=== PATIENT | female | born 1965 | race Two or more races ===

== ENCOUNTER 2020-04-08 13:35 | Outpatient (REF) | payer MEDICARE, MEDICAID, SELFPAY ==
[2020-04-08 14:48] LABS: MANUAL DIFF FLAG NO
[2020-04-08 14:59] LABS: Basophils Percent Auto 0.3 % (0-2); Eosinophils Absolute Auto 0.1 X10*3/uL (0.0-0.4); Hemoglobin 13.1 g/dl (12.0-16.0); Imm Gran Abs Auto 0.02 X10*3/uL (0.00-0.03); Imm Gran Pct Auto 0.3 % (0.0-0.4); Mean Corpuscular HGB Conc 34.5 g/dl (31.0-35.0); Mean Corpuscular Hemoglobin 30.8 pg (27.0-33.0); Mean Corpuscular Volume 89.4 fL (80-98); Mean Platelet Volume 11.8 fL (9.4-12.3); Monocytes Absolute Auto 0.6 X10*3/uL (0.1-1.2); Monocytes Percent Auto 9.9 % (2-11); Neutrophils Absolute Auto 3.1 X10*3/uL (2.0-8.3); Neutrophils Percent Auto 54.5 % (45-73); Platelet Count 258 X10*3/uL (160-400); Red Blood Count 4.25 X10*6/uL (4.20-5.50); Red Cell Distribution Width 14.4 % (11.0-16.0); White Blood Count 5.8 X10*3/uL (4.8-10.8)
[2020-04-08 15:16] LABS: Alanine Aminotransferase 24 U/L (0-31); Albumin Level 3.4 g/dL (3.5-5.0); Alkaline Phosphatase 54 U/L (39-117); Anion Gap 11 (12-20); Aspartate Amino Transferase 26 U/L (5-31); Bilirubin Total 0.4 mg/dL (0.0-1.0); Blood Urea Nitrogen 20 mg/dL (9-16); Carbon Dioxide 29 mmol/L (22-29); Chloride 104 mmol/L (96-108); Cholesterol 275 mg/dL; Estimated Glomerular Filt Rate > 60; Glucose Random 88 mg/dL (60-115); HDL Cholesterol 45 mg/dL; LDL Cholesterol Calculated 189 mg/dl; Potassium 4.4 mmol/l (3.3-5.1); Sodium 140 mmol/L (135-145); Total Protein 7.6 g/dL (6.5-8.0); Triglycerides 205 mg/dL
[2020-04-09 04:31] LABS: SARS COV2 IgG Negative (Negative)
[2020-04-13 15:22] LABS: IgA 878 mg/dL (47-310); IgG 1975 mg/dL (600-1640); IgM 107 mg/dL (50-300)
== END 2020-04-08 13:36 | disposition home or self-care (01) ==
LOC: HO.LAB 13:35
PROVIDERS: Internal Medicine Medical Oncology; PCP Internal Medicine; Visit Provider Internal Medicine
DX: I12.9 Hypertensive chronic kidney disease with stage 1 through stage 4 chronic kidney disease, or unspecified chronic kidney disease (principal); N18.9 Chronic kidney disease, unspecified; D63.1 Anemia in chronic kidney disease; E78.2 Mixed hyperlipidemia; N04.9 Nephrotic syndrome with unspecified morphologic changes
CPT/HCPCS: 36415; 80053; 80061; 82784; 85025; 86334; 86769

== ENCOUNTER → 2020-07-31 13:23 | Outpatient (BNVA) | payer MEDICARE, MEDICAID, SELFPAY | PROVIDERS: PCP Internal Medicine; Visit Provider Nurse Practitioner Family | DX: Z76.89 Persons encountering health services in other specified circumstances (principal) | CPT/HCPCS: Q3014 ==

== ENCOUNTER 2020-08-01 08:51 | Outpatient (REF) | payer MEDICARE, MEDICAID, SELFPAY ==
[2020-08-01 09:25] LABS: MANUAL DIFF FLAG NO
[2020-08-01 09:34] LABS: Basophils Percent Auto 0.4 % (0-2); Eosinophils Absolute Auto 0.1 X10*3/uL (0.0-0.4); Eosinophils Percent Auto 1.5 % (0-4); Hematocrit 36.6 % (37-47); Hemoglobin 12.9 g/dl (12.0-16.0); Imm Gran Abs Auto 0.02 X10*3/uL (0.00-0.03); Imm Gran Pct Auto 0.3 % (0.0-0.4); Lymphocytes Absolute Auto 2.2 X10*3/uL (1.2-4.9); Lymphocytes Percent Auto 31.1 % (20-40); Mean Corpuscular HGB Conc 35.2 g/dl (31.0-35.0); Mean Corpuscular Hemoglobin 30.9 pg (27.0-33.0); Mean Corpuscular Volume 87.6 fL (80-98); Mean Platelet Volume 11.3 fL (9.4-12.3); Monocytes Absolute Auto 0.6 X10*3/uL (0.1-1.2); Monocytes Percent Auto 8.6 % (2-11); Neutrophils Absolute Auto 4.2 X10*3/uL (2.0-8.3); Neutrophils Percent Auto 58.1 % (45-73); Platelet Count 220 X10*3/uL (160-400); Red Blood Count 4.18 X10*6/uL (4.20-5.50); Red Cell Distribution Width 14.2 % (11.0-16.0); White Blood Count 7.2 X10*3/uL (4.8-10.8)
[2020-08-01 09:55] LABS: Alanine Aminotransferase 14 U/L (0-31); Albumin Level 3.4 g/dL (3.5-5.0); Alkaline Phosphatase 54 U/L (39-117); Anion Gap 11 (12-20); Aspartate Amino Transferase 18 U/L (5-31); Bilirubin Total 0.7 mg/dL (0.0-1.0); Blood Urea Nitrogen 22 mg/dL (9-16); Calcium 8.5 mg/dL (8.4-10.2); Carbon Dioxide 28 mmol/L (22-29); Chloride 106 mmol/L (96-108); Estimated Glomerular Filt Rate > 60; Glucose Random 97 mg/dL (60-115); Potassium 4.5 mmol/L (3.3-5.1); Sodium 140 mmol/L (135-145); Total Protein 7.4 g/dL (6.5-8.0)
[2020-08-03 13:37] LABS: IgA 810 mg/dL (47-310); IgG 1874 mg/dL (600-1640); IgM 99 mg/dL (50-300)
== END 2020-08-01 08:52 | disposition home or self-care (01) ==
LOC: HO.LAB 08:51
PROVIDERS: Internal Medicine Medical Oncology; Visit Provider Nurse Practitioner Family
DX: E85.9 Amyloidosis, unspecified (principal)
CPT/HCPCS: 36415; 80053; 82784; 85025; 86334

== ENCOUNTER → 2020-08-20 12:31 | Outpatient (BNVA) | payer MEDICARE, MEDICAID, SELFPAY | PROVIDERS: PCP Internal Medicine; Visit Provider Internal Medicine | DX: Z01.810 Encounter for preprocedural cardiovascular examination (principal); R07.2 Precordial pain; R06.02 Shortness of breath; I10 Essential (primary) hypertension; E78.5 Hyperlipidemia, unspecified; E85.4 Organ-limited amyloidosis | CPT/HCPCS: 93005; 99202 ==

== ENCOUNTER → 2020-08-27 09:17 | Outpatient (REF) | payer MEDICARE, MEDICAID, SELFPAY ==
--- NOTE | ~2020-08-27 | NM_ITS ---
Exercise Myocardial perfusion study Indication: Preoperative cardiovascular risk stratification Technique: The patient was brought in for an exercise perfusion study on 08/27/2020. Patient performed exercise as per Gold protocol and was injected 25 mCi of sestamibi was given intravenously one target HR was achieved. Images were obtained using the SPECT gamma camera interlaced with the gating device. Images were obtained in supine position. Resting perfusion study was performed on 08/28/2020. Patient was administered 25 mCi of sestamibi intravenously at rest. Images were then obtained in supine position. Images obtained with and without CT attenuation. Total DLP 68 mGy-cm. Images were processed with the software and compared side to side in short axis, horizontal long axis and vertical long axis views. Findings: The stress perfusion study showed isoattenuated images show normal uptake of radiotracer in all segments of LV myocardium. Attenuation corrected images show minimally reduced uptake in the apex of the LV myocardium. The gated study shows normal LV systolic function with calculated LVEF of greater than 70 %. LV cavity is normal in size. The gated study shows normal systolic wall thickening and contraction of all segments. There is no transient ischemic dilation. Resting study shows no change in perfusion pattern compared to stress perfusion study. Gating at rest reveals normal systolic wall motion with ejection fraction at greater than 70 %. The findings are consistent with normal myocardial perfusion. NM/NM cardiolite stress test Impression: 1. Normal myocardial perfusion 2. Gated LVEF is greater than 70% 3. Transient ischemic dilatation not present Stress EKG is negative for ischemia
--- NOTE | 2020-08-27 09:15 | CA_ITS ---
Acquisition Time: 2020-08-27 09:34:43 Total Exercise Time: 00:09:30 Test Indications: CP, SOB, PREOP Medications: SEE CHART Protocol: MELO Max HR: 142 BPM 85% of Pred: 166 BPM Max BP: 158/080 mmHG Max Work Load: 10.1 METS Exercise stress test with exercise 9 min 30 sec of Melo protocol, without anginal symptoms, without arrythmia, with normotensive response to exercise, without EKG changes meeting criteria for ischemia. Nuclear images pending. Test reveiwed with Dr Miranda. Referred By: Alberto Miranda Overread By: TAYLOR PEOPLES
== END ==
LOC: HO.CARD 09:17
PROVIDERS: Visit Provider Internal Medicine
DX: Z01.810 Encounter for preprocedural cardiovascular examination (principal)
CPT/HCPCS: 78452; 93016; 93017; 93018; A9500

== ENCOUNTER → 2020-09-10 11:04 | Outpatient (REF) | payer MEDICARE, MEDICAID, SELFPAY ==
--- NOTE | 2020-09-10 11:09 | CA_ITS ---
Transthoracic Echocardiogram Patient (Last, First, Middle): Yelena Mckinney M Gender: Female Date of : 1965 Age: 55 Procedure Date: 09/10/2020 Procedure Type: Transthoracic Echocardiogram Location: OP Height: 157.48 cm Weight: 69.85 kg BSA: 1.71 m2 Heart Rate: bpm BP: 130 / 83 mmHg Chief Contract Officer: MARIANA Referring MD: Alberto Miranda MD Symptoms: Z01.810 - Encounter for preprocedural cardiovascular examination Study Quality: Fair ECG Rhythm: Sinus Conclusions: - The left ventricular systolic function is normal. The visually estimated ejection fraction is between 60-65%. - There is mild mitral annular calcification. - No obvious valvular pathology seen on this study. Findings Left Ventricle Normal left ventricular cavity size. There is mildly increased left ventricular wall thickness. The left ventricular systolic function is normal. The visually estimated ejection fraction is between 60-65%. There is no evidence of regional wall motion abnormalities. Diastolic function is normal for age. Right Ventricle Normal right ventricular cavity size and systolic function. Atria The left atrium is normal in size. The right atrium is normal in size. Aortic Valve There is a normal trileaflet aortic valve. There is no aortic valve stenosis. There is no aortic valve regurgitation. Mitral Valve There is mild mitral annular calcification. There is trace mitral valve regurgitation. There is no mitral valve stenosis. Pulmonic Valve The pulmonic valve was not well visualized. Tricuspid Valve Normal tricuspid valve structure. There is trace tricuspid valve regurgitation. The pulmonary artery systolic pressure is normal. Great Vessels The asc aorta and aortic arch are normal in size. Venous The inferior vena cava is normal in size and collapses greater than 50% with inspiration. Pericardium/Pleural There is no evidence of pericardial effusion. Prior Study Comparison No significant change compared to prior study dated: 12/23/2011. Recommendations, Care & Conclusions No obvious valvular pathology seen on this study. Measurements M-Mode Liner Measurements Normals - Women/Men AOV Cusps: 2.10 1.5-2.6 cm/m2 2D Linear Measurements IVSd: 1.20 0.6-0.9/0.6-1.0 cm LVIDd: 4.46 3.9-5.3/4.2-5.9 cm LVIDd Index: 2.61 2.4-3.2/2.2-3.1 cm/m2 LVIDs: 2.44 2.0-3.6 cm LVPWd: 1.23 0.7-1.1 cm Ao Root: 2.90 2.1-3.5 cm LA Diam: 3.30 2.7-3.8/3.0-4.0 cm LAIDs Index: 1.93 1.5-2.3 cm/m2 LV Mass: 247.90 67-162/88-224 g LV Mass Index: 144.97 43-95/49-115 g/m2 LVOT Diam: 1.90 3.0+(-)1.3 cm 2D Systolic Function EF 4C: 61.40 >55% EF 2C: 63.30 >55% EF BiP: 62.30 >55% Mitral Valve MV Pk E: 0.92 MV PK A: 0.98 MV Decel Time: 194.00 E/A: 0.90 E'Lateral: 8.27 E'Medial: 8.05 E/E' Med: 11.50 E/E' Lat: 11.10 PHT: 57.00 MVA PHT: 3.86 Decel Bertie: 4.76 Aortic Valve AoV Pk Ernst: 1.93 AoV Pk Grad: 15.00 LVOT LVOT Pk Ernst: 1.41 LVOT Mn Ernst: 0.90 LVOT VTI: 0.26 LVOT Pk Grad: 8.00 LVOT Mn Grad: 4.00 LVOT Diam: 1.90 LVOT Area: 2.84 Diastolic Function MV Pk E: 0.92 MV Pk A: 0.98 E/A: 0.90 E'Medial: 8.05 E/E' Med: 11.50 E' Laterial: 8.27 E/E' Lat: 11.10 Tricuspid Valve TR Pk Ernst: 2.57 TR Pk Grad: 26.00 RA Press: 3.00 RVSP: 29.00 Great Vessels Aorta Ao Root-2D: 2.90 2.0-3.7 cm Ao Asc: 2.90 2.1-3.4 cm Ao Arch: 3.10 Pulmonary Valve PV Pk Ernst: 1.30 Peak PV Grad: 7.00 Updated in Other Vendor System with Status of Final Alberto Miranda MD electronically signed on 09/12/2020 12:46:08 PM with status of Final
== END ==
LOC: HO.CARD 11:04
PROVIDERS: PCP Internal Medicine; Visit Provider Internal Medicine
DX: Z01.810 Encounter for preprocedural cardiovascular examination (principal)
CPT/HCPCS: 93306

== ENCOUNTER 2020-09-11 09:04 | Outpatient (REF) | payer MEDICARE, MEDICAID, SELFPAY ==
[2020-09-11 10:54] LABS: MANUAL DIFF FLAG NO
[2020-09-11 11:00] LABS: Basophils Percent Auto 0.3 % (0-2); Eosinophils Absolute Auto 0.1 X10*3/uL (0.0-0.4); Eosinophils Percent Auto 1.1 % (0-4); Hematocrit 37.8 % (37-47); Hemoglobin 13.4 g/dl (12.0-16.0); Imm Gran Abs Auto 0.01 X10*3/uL (0.00-0.03); Imm Gran Pct Auto 0.2 % (0.0-0.4); Lymphocytes Absolute Auto 1.7 X10*3/uL (1.2-4.9); Lymphocytes Percent Auto 27.8 % (20-40); Mean Corpuscular HGB Conc 35.4 g/dl (31.0-35.0); Mean Corpuscular Hemoglobin 31.7 pg (27.0-33.0); Mean Corpuscular Volume 89.4 fL (80-98); Mean Platelet Volume 11.5 fL (9.4-12.3); Monocytes Absolute Auto 0.5 X10*3/uL (0.1-1.2); Monocytes Percent Auto 7.5 % (2-11); Neutrophils Percent Auto 63.1 % (45-73); Platelet Count 230 X10*3/uL (160-400); Red Blood Count 4.23 X10*6/uL (4.20-5.50); Red Cell Distribution Width 13.8 % (11.0-16.0); White Blood Count 6.3 X10*3/uL (4.8-10.8)
[2020-09-11 11:28] LABS: Alanine Aminotransferase 14 U/L (0-31); Albumin Level 3.4 g/dL (3.5-5.0); Alkaline Phosphatase 54 U/L (39-117); Anion Gap 14 (12-20); Aspartate Amino Transferase 16 U/L (5-31); Bilirubin Total 0.4 mg/dL (0.0-1.0); Blood Urea Nitrogen 23 mg/dL (9-16); C Reactive Protein 0.32 mg/dL (< or = 0.50); Calcium 8.5 mg/dL (8.4-10.2); Carbon Dioxide 25 mmol/L (22-29); Chloride 107 mmol/L (96-108); Estimated Glomerular Filt Rate > 60; Glucose Random 96 mg/dL (60-115); Potassium 4.6 mmol/L (3.3-5.1); Sodium 141 mmol/L (135-145); Total Protein 7.6 g/dL (6.5-8.0)
[2020-09-11 11:45] LABS: Erythrocyte Sedimentation Rate 49 MM/HR (0-20)
[2020-09-11 11:46] LABS: Glucose Urine UA NEG (NEG); Leukocyte Esterase Urine NEG (NEG); Nitrite Urine NEG (NEG); PH 5.5 (5.0-8.0); Specific Gravity - Urine >= 1.030 (1.005-1.025); Urine Blood TRACE (NEG); Urine Ketones NEG (NEG); Urine Protein 3+ MG/DL (NEG-TRACE)
[2020-09-11 11:49] LABS: Appearance Urine CLEAR; Color Urine YELLOW
[2020-09-11 12:05] LABS: Creatinine Urine 131.91 mg/dL
[2020-09-11 12:18] LABS: Total Protein Urine Random 541 mg/dL (<12)
[2020-09-11 12:23] LABS: Mucus Urine TRACE /LPF; RBC Urine 0-2 /HPF (0); Renal Epithelial Cells Urine TRACE /LPF; Squamous Epithelial Cell Urine 1+ /LPF
[2020-09-12 13:16] LABS: Anti DNA DS Antibody 2 IU/mL
[2020-09-15 13:37] LABS: Complement C3 97 mg/dL (83-193)
[2020-09-15 14:01] LABS: Vitamin D 25-OH, D2 <4 ng/mL; Vitamin D 25-OH, D3 15 ng/mL; Vitamin D 25-OH, Total 15 ng/mL (30-100)
== END 2020-09-11 09:05 | disposition home or self-care (01) ==
LOC: HO.LAB 09:04
PROVIDERS: PCP Internal Medicine; Visit Provider Student in an Organized Health Care Education/Training Program
DX: M32.14 Glomerular disease in systemic lupus erythematosus (principal); Z79.52 Long term (current) use of systemic steroids; Z79.899 Other long term (current) drug therapy
CPT/HCPCS: 36415; 80053; 81001; 82306; 84156; 85025; 85652; 86140; 86160; 86225; 99212

== ENCOUNTER 2020-09-18 11:43 | Outpatient (REF) | payer MEDICARE, MEDICAID, SELFPAY ==
[2020-09-18 13:02] LABS: Hematocrit 35.9 % (37-47); Hemoglobin 12.6 g/dl (12.0-16.0); Mean Corpuscular HGB Conc 35.1 g/dl (31.0-35.0); Mean Corpuscular Hemoglobin 31.5 pg (27.0-33.0); Mean Corpuscular Volume 89.8 fL (80-98); Mean Platelet Volume 11.9 fL (9.4-12.3); Platelet Count 227 X10*3/uL (160-400); Red Cell Distribution Width 13.7 % (11.0-16.0); White Blood Count 5.7 X10*3/uL (4.8-10.8)
[2020-09-18 13:05] LABS: Glucose Urine UA NEG (NEG); Leukocyte Esterase Urine NEG (NEG); Nitrite Urine NEG (NEG); Specific Gravity - Urine >= 1.030 (1.005-1.025); Urine Blood TRACE (NEG); Urine Ketones NEG (NEG); Urine Protein 3+ MG/DL (NEG-TRACE)
[2020-09-18 13:10] LABS: Appearance Urine CLEAR; Color Urine YELLOW
[2020-09-18 13:46] LABS: Mucus Urine 1+ /LPF; RBC Urine 0-2 /HPF (0); Squamous Epithelial Cell Urine 1+ /LPF; WBC Urine 0-2 /HPF (0-4)
== END 2020-09-18 11:44 | disposition home or self-care (01) ==
LOC: HO.LAB 11:43
PROVIDERS: Absent Provider Nurse Practitioner Family; PCP Internal Medicine; Visit Provider Student in an Organized Health Care Education/Training Program
DX: Z12.11 Encounter for screening for malignant neoplasm of colon (principal); M32.14 Glomerular disease in systemic lupus erythematosus
CPT/HCPCS: 36415; 81001; 85027

== ENCOUNTER 2020-09-24 10:15 | Day surgery (SDC) | payer MEDICARE, MEDICAID, SELFPAY ==
[2020-09-16 11:41] VITALS: BMI 28.2
--- NOTE | 2020-09-21 09:23 | HO.ANESPROP2 ---
Documented by User: Virginia Welchney 09/21/20 09:26 HPI - Anesthesia Eval Consult details Narrative: 55yo F for Colonoscopy Cardiac cleared at low risk Chronic steroids (SLE) PMFSH Active Problems Active Problems: All Active Problems (Updated 09/16/20 @ 11:28 by Charlene Pascual) Amyloidosis (Acute) Preoperative cardiovascular examination (Acute) Precordial chest pain (Acute) Shortness of breath (Acute) half-way systemic steroid user (Acute) Lupus (systemic lupus erythematosus) (Acute) Other and unspecified hyperlipidemia (Acute) Essential hypertension (Acute) IBS (irritable bowel syndrome) (Acute) Past Medical History Medical History Essential hypertension HTN (hypertension) IBS (irritable bowel syndrome) 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 Lupus (systemic lupus erythematosus) Osteoarthritis Other and unspecified hyperlipidemia Family History Family History Mother Diabetes Arthritis Father Diabetes Surgical History Surgical History History of breast lump/mass excision Hx of cholecystectomy Hx of lymph node biopsy Social History Social History Household Members: None Alcohol intake: current Alcohol intake frequency: does not drink Smoking Status: Never smoker Use of substances other than those prescribed or required for medical reasons: No Advance Directives Information Provided: No Meds Allergies Allergy/AdvReac Type Severity Reaction Status Date / Time aspirin [ASA] Allergy Intermediate RASH AND Verified 09/24/20 10:42 ITCHING ibuprofen Allergy Intermediate rash Verified 09/24/20 10:42 itching penicillin V Allergy Intermediate rash Verified 09/24/20 10:42 Home Medications Medication Instructions Recorded Confirmed Last Taken Type albuterol sulfate [ProAir HFA] 2 puff INHALATION Q4-6H PRN 04/10/20 09/16/20 Unknown History allopurinol 100 mg PO DAILY 04/10/20 09/16/20 Unknown History budesonide-formoterol [Symbicort] 2 puff INHALATION BID 04/10/20 09/16/20 Unknown History diltiazem HCl 240 mg PO DAILY 04/10/20 09/16/20 Unknown History duloxetine 60 mg PO DAILY 04/10/20 09/16/20 Unknown History furosemide [Lasix] 20 mg PO DAILY 04/10/20 09/16/20 Unknown History hydralazine 100 mg PO BID 04/10/20 09/16/20 Unknown History hydroxychloroquine [Plaquenil] 200 mg PO DAILY 04/10/20 09/16/20 Unknown History olopatadine 0.2 drp OPHTHALMIC (EYE) BID 04/10/20 09/16/20 Unknown History prednisone 20 mg PO DAILY 04/10/20 09/16/20 Unknown History quetiapine [Seroquel] 25 mg PO DAILY 04/10/20 09/16/20 Unknown History tiotropium bromide [Spiriva with 1 cap INHALATION DAILY 04/10/20 09/16/20 Unknown History HandiHaler] valsartan 320 mg PO DAILY 04/10/20 09/16/20 Unknown History mirtazapine 15 mg tablet 5 mg PO BEDTIME 08/20/20 09/16/20 Unknown History rosuvastatin 40 mg tablet 40 mg PO DAILY tab 08/20/20 09/16/20 Unknown History Exam Exam Date and Time: September 21, 2020 0923 Height,Weight and Vital Signs: Height 5 ft 2 in Weight 70 kg Narrative Narrative: Echo 08/2020 Conclusions: - The left ventricular systolic function is normal. The visually estimated ejection fraction is between 60-65%. - There is mild mitral annular calcification. - No obvious valvular pathology seen on this study. EKG 08/2020 NSR, ? LAE, LAD NM cardiolite stress test 08/2020 Impression: 1. Normal myocardial perfusion 2. Gated LVEF is greater than 70% 3. 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 Lupus (systemic lupus erythematosus) Osteoarthritis Other and unspecified hyperlipidemia Family History Family History Mother Diabetes Arthritis Father Diabetes Surgical History Surgical History History of breast lump/mass excision Hx of cholecystectomy Hx of lymph node biopsy Social History Social History Household Members: None Alcohol intake: current Alcohol intake frequency: does not drink Smoking Status: Never smoker Use of substances other than those prescribed or required for medical reasons: No Advance Directives Information Provided: No Meds Allergies Allergy/AdvReac Type Severity Reaction Status Date / Time aspirin [ASA] Allergy Intermediate RASH AND Verified 09/24/20 10:42 ITCHING ibuprofen Allergy Intermediate rash Verified 09/24/20 10:42 itching penicillin V Allergy Intermediate rash Verified 09/24/20 10:42 Home Medications Medication Instructions Recorded Confirmed Last Taken Type albuterol sulfate [ProAir HFA] 2 puff INHALATION Q4-6H PRN 04/10/20 09/16/20 Unknown History allopurinol 100 mg PO DAILY 04/10/20 09/16/20 Unknown History budesonide-formoterol [Symbicort] 2 puff INHALATION BID 04/10/20 09/16/20 Unknown History diltiazem HCl 240 mg PO DAILY 04/10/20 09/16/20 Unknown History duloxetine 60 mg PO DAILY 04/10/20 09/16/20 Unknown History furosemide [Lasix] 20 mg PO DAILY 04/10/20 09/16/20 Unknown History hydralazine 100 mg PO BID 04/10/20 09/16/20 Unknown History hydroxychloroquine [Plaquenil] 200 mg PO DAILY 04/10/20 09/16/20 Unknown History olopatadine 0.2 drp OPHTHALMIC (EYE) BID 04/10/20 09/16/20 Unknown History prednisone 20 mg PO DAILY 04/10/20 09/16/20 Unknown History quetiapine [Seroquel] 25 mg PO DAILY 04/10/20 09/16/20 Unknown History tiotropium bromide [Spiriva with 1 cap INHALATION DAILY 04/10/20 09/16/20 Unknown History HandiHaler] valsartan 320 mg PO DAILY 04/10/20 09/16/20 Unknown History mirtazapine 15 mg tablet 5 mg PO BEDTIME 08/20/20 09/16/20 Unknown History rosuvastatin 40 mg tablet 40 mg PO DAILY tab 08/20/20 09/16/20 Unknown History Exam Airway Mallampati Class: II TM Dist: >3cm Neck ROM: Full Denture: Upper and Lower Heart: [id number] Lungs: cta b/l Assessment and Plan Assessment Anesthesia Assessment: Anesthesia Plan Discussed and Chart Reviewed Final Anesthetic Review NPO: Yes ASA Class: III Final Preanesthetic Review: No Changes in Pt Med Stat, Meds/Allgs Chart Reviewed, Consent Obtained/Reviewed and Anes Risks/Benef Reviewed Patient Risk: Intermediate Procedure Risk: Low Assessment/Block/Sedation in SS: Assess/Block/Sedation-SS Anesthetic Plan Anesthetic Plan: GA and Agree w/ Assess. and Plan Disposition: Standard PACU
--- NOTE | 2020-09-22 08:27 | PC.NURSE ---
Patient brought into prep area and ADI De Los Santos began asking what the results of the preparation solution were. Patient explained the last bowel movement was yesterday and when asked if it was formed stated yes . Patient asked if she wanted an printed products assembler for better understanding and patient refused. ADI Estrada attempted to explain use of preparation and intended results of multiple bathroom uses after taking it with result of all liquid, no formed stools. Patient stated I tried to drink the stuff and it made me sick and I threw up, so I didnt drink it. Dr Dillon informed of no preparation taken and formed stool. Per Dr. Dillon, patient to be rescheduled and educated on proper prep. This RN told patient of need for reschedule and attempted to explain need to call office multiple times if necessary in order to get someone to explain how to take prep. Patient stated I dont need your attitude, I am not a baby. Again offered printed products assembler and refused. Patient given office number with need to reschedule and get preparations instructions written on paper. Patient grabbed paper from RN forcefully, stated I don't need this and left prep room abruptly. OR desk & PACU informed of cancellation.
[2020-09-24 10:45] VITALS: BP 139/99; PULSE 104; RESP 18; TEMP 36.1; O2SAT 99
--- NOTE | 2020-09-24 10:48 | P.HPSUR_ITS ---
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,IBS; ?anxiety disorder???) Allergies: Allergies Allergy/AdvReac Type Severity Reaction Status Date / Time aspirin [ASA] Allergy Intermediate RASH AND Verified 09/24/20 10:42 ITCHING ibuprofen Allergy Intermediate rash Verified 09/24/20 10:42 itching penicillin V Allergy Intermediate rash Verified 09/24/20 10:42 Review of Systems Sugical H&P ROS: Negative: Constitution and Neurological and Yes, Specify: Cardiovascular (Hx HTN, Recent cardiac evaluation was normal), Respiratory (asthma-stable), Psychiatric (on meds), Hem-Onc (followed for atypical breast bx changes), Gastrointestinal (IBS) and Musculoskeletal (Rheumatology--Lupus) Exam Surgical H&P Exam: Normal: HEENT, Normal: Heart, Normal: Lungs, Normal: Extremities, Normal: Abdomen and Normal: Skin Plan Diagnosis/Plan: Unchanged I have reviewed the history and physical and performed a pertinent physical examination on my patient. No changes have occurred unless specified.yes
--- NOTE | 2020-09-24 10:48 | PM.OP ---
Brief Operative Note Date of Service: 09/24/20 Pre-op diagnosis: DUPLICATE--IGNORE Surgeon: Sabrina Javier MD Estimated blood loss (mL): 0
[2020-09-24] MEDS: Lactated Ringers 1,000 ML 100 ML IVCONT (10:57)
[2020-09-24 11:37] VITALS: BP 90/65; PULSE 98; RESP 16; TEMP 36.8; O2SAT 99
--- NOTE | 2020-09-24 11:42 | P.BOP_ITS ---
Brief Operative Note Date of Service: 09/24/20 Pre-op diagnosis: COLON CANCER SCREENING-#1 Post-op diagnosis: other (DIVERTICULOSIS) Procedure: COLONOSCOPY Implants: NONE Surgeon: Sabrina Javier MD Anesthesia: MAC (CUFF,MOTION PICTURE EQUIPMENT SUPERVISOR) Estimated blood loss (mL): 5 Pathology: none sent Condition: stable Disposition: PACU
[2020-09-24 11:51] VITALS: BP 131/87; PULSE 83; RESP 16; TEMP 36.8; O2SAT 98
--- NOTE | 2020-09-24 12:03 | W.PM.OPN ---
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 Scope continued to be advanced through descending, transverse, ascending colon slowly--flush and suction of 300cc sterile water. Some inspissated stool in diverticuli noted. Extrinsic abdominal pressure was needed to assist scope into the cecal cap. Appendiceal orifice ileocecal valve were seen. No mucosal abnormalities noted. Slight friabilty in areas from scope. No polyps, etc. were seen. Slow withdrawal of scope, good rotational views were seen on withdrawal of scope. ARV was Clear. Estimated blood loss (mL): 5 Pathology: none sent Condition: stable Disposition: PACU PLAN; REPEAT ASYMPTOMATIC SCREENING TO BE DONE IN 10YEARS IF NO CHANGES. IN SPEAKING WITH THE PATIENT: She has significant constipation. She has days where she is distended has abdominal pains and can not even pass gas. Will start her on Colace @ hs. If this is not enough, she is to call the office for a followup visit for constipation.
== END 2020-09-24 12:45 | disposition home or self-care (01) ==
PROVIDERS: Internal Medicine Gastroenterology; Visit Provider Internal Medicine Gastroenterology
PROC: 0DJD8ZZ Inspection of Lower Intestinal Tract, Via Natural or Artificial Opening Endoscopic (ICD-10-PCS; CPT 45378; principal; 2020-09-24 11:30)
DX: Z12.11 Encounter for screening for malignant neoplasm of colon (principal); K57.30 Diverticulosis of large intestine without perforation or abscess without bleeding; K59.00 Constipation, unspecified; Q43.8 Other specified congenital malformations of intestine; J45.909 Unspecified asthma, uncomplicated; M32.9 Systemic lupus erythematosus, unspecified; I10 Essential (primary) hypertension; Z79.52 Long term (current) use of systemic steroids; Z79.899 Other long term (current) drug therapy; Z88.0 Allergy status to penicillin; Z88.6 Allergy status to analgesic agent
CPT/HCPCS: G0121

== ENCOUNTER → 2020-11-18 10:02 | Outpatient (BNVA) | payer MEDICARE, MEDICAID, SELFPAY | PROVIDERS: Visit Provider Nurse Practitioner Family | DX: K59.00 Constipation, unspecified (principal); K58.9 Irritable bowel syndrome, unspecified; Z98.890 Other specified postprocedural states | CPT/HCPCS: Q3014 ==

== ENCOUNTER 2021-02-14 14:29 | Emergency (ER) | payer MEDICARE, MEDICAID, SELFPAY ==
[2021-02-14 14:31] VITALS: BP 161/100; PULSE 95; RESP 18; TEMP 36.7; O2SAT 97; BMI 26.9
--- NOTE | 2021-02-14 15:14 | ED.WOUNDLAC ---
HPI - Wound/Laceration General Chief Complaint: Wound/Laceration Stated Complaint: finger laceration Time Seen by Provider: 02/14/21 15:12 Source: patient Mode of arrival: ambulatory Limitations: no limitations History of Present Illness HPI narrative: 55 y/o female presenting with a laceration to her left index finger when she accidentally cut herself while cutting vegetables at home. She reports cutting the tip of her finger and it involves the end of her nail. No numbness or tingling, just some pain and bleeding. She was unable to control the bleeding to she came to the ER for evaluation. She is not on blood thinners. Onset (ago): hour(s) Extremity Location: left: hand (index finger) Place: home Patient tetanus UTD: Yes Context: accidental Associated symptoms: pain Treatments prior to arrival: bandage Related Data Home Medications Medication Instructions Recorded Confirmed albuterol sulfate 90 mcg/actuation 2 puff INHALATION Q4-6H PRN 04/10/20 09/16/20 aerosol inhaler (ProAir HFA) allopurinol 100 mg tablet 100 mg PO DAILY 04/10/20 09/16/20 budesonide-formoterol HFA 160 2 puff INHALATION BID 04/10/20 09/16/20 mcg-4.5 mcg/actuation aerosol inhaler (Symbicort) diltiazem HCl 240 mg 240 mg PO DAILY 04/10/20 09/16/20 capsule,extended release 24 hr duloxetine 60 mg capsule,delayed 60 mg PO DAILY 04/10/20 09/16/20 release sprinkle furosemide 20 mg tablet (Lasix) 20 mg PO DAILY 04/10/20 09/16/20 hydralazine 100 mg tablet 100 mg PO BID 04/10/20 09/16/20 hydroxychloroquine 200 mg tablet 200 mg PO DAILY 04/10/20 09/16/20 (Plaquenil) olopatadine 0.2 % eye drops 0.2 drp OPHTHALMIC (EYE) BID 04/10/20 09/16/20 prednisone 20 mg tablet 20 mg PO DAILY 04/10/20 09/16/20 quetiapine 25 mg tablet (Seroquel) 25 mg PO DAILY 04/10/20 09/16/20 tiotropium bromide 18 mcg capsule 1 cap INHALATION DAILY 10/23/20 03/31/21 with inhalation device (Spiriva with HandiHaler) valsartan 320 mg tablet 320 mg PO DAILY 04/10/20 09/16/20 mirtazapine 15 mg tablet 5 mg PO BEDTIME 08/20/20 09/16/20 rosuvastatin 40 mg tablet 40 mg PO DAILY tab 08/20/20 09/16/20 Previous Rx's Medication Instructions Recorded methylcellulose (laxative) 500 mg 500 mg PO DAILY #30 tab 07/31/20 tablet (Citrucel) cholecalciferol (vitamin D3) 1,250 1,250 mcg PO QWEEK #12 cap 09/15/20 mcg (50,000 unit) capsule docusate sodium 100 mg capsule 100 mg PO BEDTIME 30 Days #30 cap 09/24/20 (Colace) sennosides 8.6 mg tablet (senna) 8.6 mg PO BEDTIME #30 tab 11/18/20 Allergies Allergy/AdvReac Type Severity Reaction Status Date / Time aspirin [ASA] Allergy Intermediate RASH AND Verified 02/14/21 14:31 ITCHING ibuprofen Allergy Intermediate rash Verified 02/14/21 14:31 itching penicillin V Allergy Intermediate rash Verified 02/14/21 14:31 Review of Systems Review of Systems: Constitutional: No Fever, No Chills Gastrointestinal: No Nausea, No Vomiting Musculoskeletal: + joint pain, No Myalgias Skin: + Skin Lesions, No rash Neuro: No Weakness, No Numbness Psych: No Anxiety/Panic Heme/Lymph: No Bruising PMFSH Past Medical History Medical History Essential hypertension HTN (hypertension) IBS (irritable bowel syndrome) 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 Lupus (systemic lupus erythematosus) Osteoarthritis Other and unspecified hyperlipidemia Surgical History History of breast lump/mass excision Hx of cholecystectomy Hx of lymph node biopsy Family History Family History Mother Diabetes Arthritis Father Diabetes Social History Social History Household Members: None Alcohol intake: current Alcohol intake frequency: does not drink Advance Directives: No Advance Directives Information Provided: No Patient : No Physical Exam Vital Signs: Vital Signs: Last Vital Signs Temp 98.0 F 02/14/21 14:31 Pulse 95 02/14/21 14:31 Resp 18 02/14/21 14:31 BP 161/100 H 02/14/21 14:31 Pulse Ox 97 02/14/21 14:31 Body Mass Index 26.9 Appearance: Alert. Oriented X3. No acute distress. HEENT: normal inspection CVS: Normal heart rate and rhythm. Pulses normal. Respiratory: No respiratory distress. Skin: Skin warm and dry. Normal skin color. Normal skin turgor. No rashes. Extremities: left index finger with partial amputation of the distal lateral finger tip with removal of the distal lateral portion of the nail. actively bleeding at the tip. normal ROM of the index finger. Neuro: Oriented X 3. No motor deficit. No sensory deficit. Course Course Course Narrative: 55 y/o female presenting with laceration to the left distal finger tip - very small, partial amputation of the tip, active bleeding which was controlled with direct pressure and surgicel. wound was irrigated prior to this. tdap UTD> clean sterile dressing applied, with no further bleeding. Stable for d/c home. Wound care discussed. She will f/u with her doctor this week. Discharge Plan Discharge Clinical Impression: Laceration Patient Disposition: Home, Self-Care Instructions: Finger Laceration (ED) Additional Instructions: Keep the current dressing on your finger until tomorrow. Keep the special gauze that is directly on the wound in place, do not peel it off, it will absorb on it's own. Keep clean and covered. Do not get wet for 48 hours. Elevate your hand and apply ice as needed for pain. Take Motrin and/or Tylenol as needed for pain. If bleeding recurrs, apply pressure with gauze for 15 minutes. If bleeding persists despite this, come back to the ER for further evaluation. Prescriptions: No Action cholecalciferol (vitamin D3) 1,250 mcg (50,000 unit) capsule 1,250 mcg PO QWEEK Qty: 12 RF: 0 docusate sodium [Colace] 100 mg capsule 100 mg PO BEDTIME 30 Days Qty: 30 RF: 3 quetiapine [Seroquel] 25 mg Tablet 25 mg PO DAILY RF: 0 diltiazem HCl 240 mg capsule,extended release 24hr 240 mg PO DAILY RF: 0 prednisone 20 mg Tablet 20 mg PO DAILY RF: 0 allopurinol 100 mg Tablet 100 mg PO DAILY RF: 0 hydralazine 100 mg tablet 100 mg PO BID RF: 0 valsartan 320 mg tablet 320 mg PO DAILY RF: 0 furosemide [Lasix] 20 mg Tablet 20 mg PO DAILY RF: 0 hydroxychloroquine [Plaquenil] 200 mg Tablet 200 mg PO DAILY RF: 0 albuterol sulfate [ProAir HFA] 90 mcg/actuation Hfa Aerosol Inhaler 2 puff INHALATION Q4-6H PRN (Reason: Shortness Of Breath) RF: 0 Spiriva with HandiHaler 18 mcg Capsule, W/Inhalation Device 1 cap INHALATION DAILY RF: 0 olopatadine 0.2 % drops 0.2 drp ophthalmic (eye) BID RF: 0 budesonide-formoterol [Symbicort] 160-4.5 mcg/actuation HFA aerosol inhaler 2 puff INHALATION BID RF: 0 duloxetine 60 mg Capsule, Delayed Rel Sprinkle 60 mg PO DAILY RF: 0 Citrucel 500 mg tablet 500 mg PO DAILY Qty: 30 RF: 2 sennosides [senna] 8.6 mg tablet 8.6 mg PO BEDTIME Qty: 30 RF: 2 rosuvastatin 40 mg tablet 40 mg PO DAILY RF: 0 mirtazapine 15 mg tablet 5 mg PO BEDTIME RF: 0
== END 2021-02-14 16:42 | disposition home or self-care (01) ==
PROVIDERS: Emergency Provider Emergency Medicine; PCP Internal Medicine
DX: S61.211A Laceration without foreign body of left index finger without damage to nail, initial encounter (principal); M79.642 Pain in left hand; W26.9XXA Contact with unspecified sharp object(s), initial encounter; Y93.G3 Activity, cooking and baking; Y92.9 Unspecified place or not applicable; Y99.9 Unspecified external cause status; Z79.899 Other long term (current) drug therapy
CPT/HCPCS: 99283

== ENCOUNTER 2021-05-10 10:54 | Outpatient (REF) | payer MEDICARE, MEDICAID, SELFPAY ==
--- NOTE | ~2021-05-10 | XR_ITS ---
EXAMINATION: XR LUMBOSACRAL SPINE CLINICAL INFORMATION: Chronic low back pain with activity COMPARISON: Report from lumbar spine 12/15/2015, images unavailable. TECHNIQUE: Three views of the lumbosacral spine. FINDINGS: There are 5 nonrib-bearing lumbar vertebrae of normal height and normal lumbar lordosis. No lumbar vertebral compression, spondylolisthesis, destructive process. There is mild disc narrowing at L5-S1. The SI joints and visualized sacrum are unremarkable. There are surgical clips right upper quadrant and overlying left abdomen. There is a 0.5 cm calcification just below left transverse process L5 L5, not appreciated on the lateral views and possibly mesenteric lymph node calcification rather than related to urinary tract. XR/XR lumbar spine 2-3V IMPRESSION: Mild disc narrowing L5-S1.
== END 2021-05-10 10:55 | disposition home or self-care (01) ==
LOC: HO.XRAY 10:54
PROVIDERS: PCP Internal Medicine; Visit Provider Internal Medicine Rheumatology
DX: M54.9 Dorsalgia, unspecified (principal); G89.29 Other chronic pain
CPT/HCPCS: 72100

== ENCOUNTER 2021-07-07 11:11 | Outpatient (REF) | payer MEDICARE, MEDICAID, SELFPAY ==
[2021-07-07 12:42] LABS: Appearance Urine CLEAR; Color Urine YELLOW; Glucose Urine UA NEG (NEG); Leukocyte Esterase Urine NEG (NEG); Nitrite Urine NEG (NEG); Urine Blood NEG (NEG); Urine Ketones NEG (NEG); Urine Protein 3+ MG/DL (NEG-TRACE)
[2021-07-07 12:54] LABS: Amorphous Sediment Urine 1+ /LPF; Mucus Urine TRACE /LPF; RBC Urine 0 /HPF (0); Squamous Epithelial Cell Urine 1+ /LPF; WBC Urine 0-2 /HPF (0-4)
[2021-07-07 13:02] LABS: Estimated Glomerular Filt Rate > 60
[2021-07-07 13:16] LABS: Creatinine Urine 160.25 mg/dL
[2021-07-07 13:31] LABS: Protein/Creatinine Ratio, Ur 2.76 (<0.2); Total Protein Urine Random 443 mg/dL (<12)
== END 2021-07-07 11:12 | disposition home or self-care (01) ==
LOC: HO.LAB 11:11
PROVIDERS: Visit Provider Internal Medicine Rheumatology
DX: M32.9 Systemic lupus erythematosus, unspecified (principal)
CPT/HCPCS: 36415; 81001; 82565; 84156

== ENCOUNTER 2021-07-09 10:20 | Outpatient (REF) | payer MEDICARE, MEDICAID, SELFPAY ==
[2021-07-09 11:29] LABS: MANUAL DIFF FLAG NO
[2021-07-09 12:02] LABS: Basophils Percent Auto 0.5 % (0-2); Eosinophils Absolute Auto 0.1 X10*3/uL (0.0-0.4); Eosinophils Percent Auto 0.8 % (0-4); Hematocrit 34.5 % (37.0-47.0); Hemoglobin 12.4 g/dl (12.0-16.0); Imm Gran Abs Auto 0.02 X10*3/uL (0.00-0.03); Imm Gran Pct Auto 0.3 % (0.0-0.4); Lymphocytes Absolute Auto 1.6 X10*3/uL (1.2-4.9); Lymphocytes Percent Auto 27.1 % (20-40); Mean Corpuscular HGB Conc 35.9 g/dl (31.0-35.0); Mean Corpuscular Hemoglobin 31.8 pg (27.0-33.0); Mean Corpuscular Volume 88.5 fL (80.0-98.0); Mean Platelet Volume 11.5 fL (9.4-12.3); Monocytes Absolute Auto 0.6 X10*3/uL (0.1-1.2); Monocytes Percent Auto 9.5 % (2-11); Neutrophils Absolute Auto 3.7 x10*3/uL (2.0-8.3); Neutrophils Percent Auto 61.8 % (45-73); Platelet Count 218 X10*3/uL (160-400); Red Cell Distribution Width 13.2 % (11.0-16.0)
[2021-07-09 12:35] LABS: Alanine Aminotransferase 16 U/L (0-31); Albumin Level 3.1 g/dL (3.5-5.0); Alkaline Phosphatase 51 U/L (39-117); Anion Gap 10 (12-20); Aspartate Amino Transferase 17 U/L (5-31); Blood Urea Nitrogen 22 mg/dL (9-16); Carbon Dioxide 28 mmol/L (22-29); Chloride 105 mmol/L (96-108); Estimated Glomerular Filt Rate > 60; Glucose Random 83 mg/dL (60-115); Potassium 4.2 mmol/L (3.3-5.1); Sodium 139 mmol/L (135-145); Total Protein 7.3 g/dL (6.5-8.0)
[2021-07-09 12:42] LABS: Bilirubin Total 0.2 mg/dL (0.0-1.0)
== END 2021-07-09 10:21 | disposition home or self-care (01) ==
LOC: HO.LAB 10:20
PROVIDERS: PCP Internal Medicine; Visit Provider Internal Medicine
DX: E78.00 Pure hypercholesterolemia, unspecified (principal); F33.3 Major depressive disorder, recurrent, severe with psychotic symptoms; I10 Essential (primary) hypertension; N04.9 Nephrotic syndrome with unspecified morphologic changes
CPT/HCPCS: 36415; 80053; 85025

== ENCOUNTER 2021-07-12 07:51 | Outpatient (REF) | payer MEDICARE, MEDICAID, SELFPAY ==
--- NOTE | ~2021-07-12 | MM_ITS ---
EXAMINATION: MM DIAGNOSTIC DIGITAL BREAST TOMOSYNTHESIS, BILATERAL CLINICAL INFORMATION: Due for yearly. History lupus. Follow-up calcifications left breast post therapy. Prior history left stereotactic biopsy 05/18/2018 for calcifications, positive for emboli. Subsequent left excisional biopsy 08/27/2018 (Breast tissue with ductal hyperplasia, adenosis and perivascular and periductal amyloidosis and calcifications. Negative for carcinoma. Biopsy related histologic changes present). Family history breast cancer paternal aunt. The lifetime risk of breast cancer based on the Tyrer-Cuzick Model is 10%. COMPARISON: Mammography: 11/13/2019, 03/25/2019, 08/27/2018 (needle localization), 05/18/2018 (stereotactic biopsy), 05/09/2018, 04/27/2018. TECHNIQUE: Digital breast tomosynthesis is performed in both the craniocaudal and mediolateral oblique views along with computer-aided detection (CAD). Synthesized 2D images are generated from the tomosynthesis. Additional magnification views of the left breast are obtained in the CC x3 and ML x2 projections. FINDINGS: There are scattered areas of fibroglandular density (ACR BI-RADS breast composition Category b). Parenchymal pattern is similar to prior exams. There is fine fibronodular parenchymal pattern similar to prior exams. Breast tissue composition borders on heterogeneously dense. There is no developing density or interval mass or architectural abnormality. The axilla and skin contours are unremarkable. Right breast again has benign grouped coarse calcifications posterior upper outer quadrant with adjacent biopsy clip marker. Left breast has grouped coarse calcifications posterior upper outer quadrant, area of prior lumpectomy. There are also some benign-appearing grouped coarse calcifications central 8:00 left breast with a few additional coarse calcifications in this quadrant. Results are provided to the patient at time of visit by the technologist. MM/MM tomosynthesis diagnostic BI IMPRESSION: No significant changes from prior study. ASSESSMENT: BI-RADS 2: Benign RECOMMENDATION: Routine annual mammography screening. This patient's information was entered into a reminder system with a target due date for their next mammogram.
== END 2021-07-12 07:52 | disposition home or self-care (01) ==
LOC: HO.MAMMO 07:51
PROVIDERS: PCP Internal Medicine; Visit Provider Internal Medicine
DX: R92.1 Mammographic calcification found on diagnostic imaging of breast (principal); Z86.69 Personal history of other diseases of the nervous system and sense organs
CPT/HCPCS: 77062; 77066

== ENCOUNTER 2021-07-12 09:31 | Outpatient (REF) | payer MEDICARE, MEDICAID, SELFPAY ==
[2021-07-12 10:30] LABS: Cholesterol 254 mg/dL; HDL Cholesterol 44 mg/dL; LDL Cholesterol Calculated 162 mg/dl; Triglycerides 241 mg/dL
== END 2021-07-12 09:32 | disposition home or self-care (01) ==
LOC: HO.LAB 09:31
PROVIDERS: PCP Internal Medicine; Visit Provider Internal Medicine
DX: E78.00 Pure hypercholesterolemia, unspecified (principal); I10 Essential (primary) hypertension; N04.9 Nephrotic syndrome with unspecified morphologic changes; F33.3 Major depressive disorder, recurrent, severe with psychotic symptoms
CPT/HCPCS: 36415; 80061

== ENCOUNTER 2021-07-15 10:35 | Outpatient (REF) | payer MEDICARE, MEDICAID, SELFPAY ==
[2021-07-15 11:05] LABS: MANUAL DIFF FLAG NO
[2021-07-15 11:35] LABS: Basophils Percent Auto 0.3 % (0-2); Eosinophils Absolute Auto 0.1 X10*3/uL (0.0-0.4); Hematocrit 33.9 % (37.0-47.0); Hemoglobin 12.2 g/dl (12.0-16.0); Imm Gran Abs Auto 0.01 X10*3/uL (0.00-0.03); Imm Gran Pct Auto 0.2 % (0.0-0.4); Lymphocytes Absolute Auto 1.7 X10*3/uL (1.2-4.9); Lymphocytes Percent Auto 28.4 % (20-40); Mean Corpuscular Hemoglobin 31.7 pg (27.0-33.0); Mean Corpuscular Volume 88.1 fL (80.0-98.0); Mean Platelet Volume 11.4 fL (9.4-12.3); Monocytes Absolute Auto 0.5 X10*3/uL (0.1-1.2); Monocytes Percent Auto 8.9 % (2-11); Neutrophils Absolute Auto 3.7 x10*3/uL (2.0-8.3); Neutrophils Percent Auto 61.2 % (45-73); Platelet Count 215 X10*3/uL (160-400); Red Blood Count 3.85 X10*6/uL (4.20-5.50); Red Cell Distribution Width 13.2 % (11.0-16.0); White Blood Count 6.1 X10*3/uL (4.8-10.8)
[2021-07-15 12:03] LABS: Alanine Aminotransferase 11 U/L (0-31); Albumin Level 3.1 g/dL (3.5-5.0); Alkaline Phosphatase 53 U/L (39-117); Anion Gap 10 (12-20); Aspartate Amino Transferase 15 U/L (5-31); Bilirubin Total 0.3 mg/dL (0.0-1.0); Blood Urea Nitrogen 26 mg/dL (9-16); Calcium 9.2 mg/dL (8.4-10.2); Carbon Dioxide 31 mmol/L (22-29); Chloride 102 mmol/L (96-108); Estimated Glomerular Filt Rate > 60; Glucose Random 93 mg/dL (60-115); Potassium 4.5 mmol/L (3.3-5.1); Sodium 138 mmol/L (135-145); Total Protein 7.3 g/dL (6.5-8.0)
[2021-07-16 12:45] LABS: Prot Elec - Albumin 3.1 g/dL (3.8-4.8); Prot Elec - Alpha1 0.3 g/dL (0.2-0.3); Prot Elec - Alpha2 0.8 g/dL (0.5-0.9); Prot Elec - Beta 1 0.4 g/dL (0.4-0.6); Prot Elec - Beta 2 0.6 g/dL (0.2-0.5); Prot Elec - Gamma 1.6 g/dL (0.8-1.7); Prot Elec - Total Protein 6.8 g/dL (6.1-8.1)
[2021-07-19 10:37] LABS: CA 27.29 16 U/mL (<38)
== END 2021-07-15 10:36 | disposition home or self-care (01) ==
LOC: HO.LAB 10:35
PROVIDERS: Absent Provider Internal Medicine; PCP Internal Medicine; Visit Provider Internal Medicine Medical Oncology
DX: R59.1 Generalized enlarged lymph nodes (principal); M32.9 Systemic lupus erythematosus, unspecified
CPT/HCPCS: 36415; 80053; 84165; 85025; 86300

== ENCOUNTER 2021-08-28 11:38 | Emergency (ER) | payer MEDICARE, MEDICAID, SELFPAY ==
--- NOTE | ~2021-08-28 | XR_ITS ---
EXAMINATION: XR RIBS, RIGHT CLINICAL INFORMATION: Posterior rib pain. Evaluate for fracture. Right rib pain after injury. COMPARISON: Chest radiograph 07/12/2019. TECHNIQUE: PA chest radiograph and 3 view series of the right ribs. FINDINGS: Chest: Normal appearance of the cardiomediastinal structures. No effusions or pneumothoraces. Normal pattern of pulmonary vasculature. No focal pulmonary consolidation. Partially visualized mild multilevel endplate osteophytosis of the thoracic spine. Cholecystectomy clips noted. Incidental note is made of mild bilateral costochondral calcifications. Right RIBS: A cutaneous marker is noted along the lateral thoracic wall the level of the 12th rib. No rib fractures or suspicious rib lesions identified. XR/XR ribs RT min 3V w CXR1V IMPRESSION: Chest and right RIBS: *No acute cardiopulmonary abnormalities. *No rib fractures identified.
--- NOTE | ~2021-08-28 | CT_ITS ---
EXAMINATION: CT BRAIN AND CT CERVICAL SPINE WITHOUT CONTRAST. CLINICAL INFORMATION: Status post fall. Pain. COMPARISON: None TECHNIQUE: 5 mm thin axial and reformatted 2 mm thin sagittal and coronal images of brain were obtained without contrast. Subsequently axial 3 mm thin axial and 2 mm thin sagittal and coronal images of cervical spine were obtained without contrast. DLP 968 mGy/cm. FINDINGS: Brain: There is no acute intra-axial, extra-axial bleed, masses or midline shift. The lateral ventricles are symmetrical in size and configuration without enlargement. There is grade white matter difference is maintained normal. There is no acute infarction evolution. There is no edema. Bone windows reveal no calvarial fracture. There is right posterior parietal lobe skin lori from scalp injury. Moderate soft tissue swelling is seen. Bilateral paranasal sinuses and mastoid air cells are well-aerated. CT/CT head/brain wo con IMPRESSION: No intracranial process seen. Moderate soft tissue swelling right posterior parietal scalp lori from laceration. There is no calvarial abnormality seen.
--- NOTE | ~2021-08-28 | CT_ITS ---
EXAMINATION: CT BRAIN AND CT CERVICAL SPINE WITHOUT CONTRAST. CLINICAL INFORMATION: Status post fall. Pain. COMPARISON: None TECHNIQUE: 5 mm thin axial and reformatted 2 mm thin sagittal and coronal images of brain were obtained without contrast. Subsequently axial 3 mm thin axial and 2 mm thin sagittal and coronal images of cervical spine were obtained without contrast. DLP 968 mGy/cm. FINDINGS: Brain: There is no acute intra-axial, extra-axial bleed, masses or midline shift. The lateral ventricles are symmetrical in size and configuration without enlargement. There is grade white matter difference is maintained normal. There is no acute infarction evolution. There is no edema. Bone windows reveal no calvarial fracture. There is right posterior parietal lobe skin lori from scalp injury. Moderate soft tissue swelling is seen. Bilateral paranasal sinuses and mastoid air cells are well-aerated. CT/CT cervical spine wo con IMPRESSION: No intracranial process seen. Moderate soft tissue swelling right posterior parietal scalp lori from laceration. There is no calvarial abnormality seen.
[2021-08-28 12:07] VITALS: BP 172/108; PULSE 97; RESP 17; TEMP 37.1; O2SAT 98; BMI 27.4
--- NOTE | 2021-08-28 12:48 | ED_ITS ---
HPI - Fall General Chief Complaint: Fall Stated Complaint: Fall/head inj Time Seen by Provider: 08/28/21 12:47 Source: patient and family Mode of arrival: ambulatory Limitations: language barrier History of Present Illness HPI Narrative: 56 yo female with history of CKD, HTN, IBS, lupus here with complaints of fall which occurred this morning just [employer]. Patient was taking out the trash when she tripped falling backwards hitting her posterior head on the pavement. No LOC. Patient states I felt stunned for a moment. Now having CALDERÓN, dizziness, nausea, neck pain. No vomiting, behavior change. Having some right sided back pain which starts mid back and radiates to right buttocks. No numbness, tingling, weakness, bowel or bladder incontinence. No AC therapy use. Related Data Home Medications Medication Instructions Recorded Confirmed albuterol sulfate 90 mcg/actuation 2 puff INHALATION Q4-6H PRN 04/10/20 09/16/20 aerosol inhaler (ProAir HFA) allopurinol 100 mg tablet 100 mg PO DAILY 04/10/20 09/16/20 budesonide-formoterol HFA 160 2 puff INHALATION BID 04/10/20 09/16/20 mcg-4.5 mcg/actuation aerosol inhaler (Symbicort) diltiazem HCl 240 mg 240 mg PO DAILY 04/10/20 09/16/20 capsule,extended release 24 hr duloxetine 60 mg capsule,delayed 60 mg PO DAILY 04/10/20 09/16/20 release sprinkle furosemide 20 mg tablet (Lasix) 20 mg PO DAILY 04/10/20 09/16/20 hydralazine 100 mg tablet 100 mg PO BID 04/10/20 09/16/20 hydroxychloroquine 200 mg tablet 200 mg PO DAILY 04/10/20 09/16/20 (Plaquenil) olopatadine 0.2 % eye drops 0.2 drp OPHTHALMIC (EYE) BID 04/10/20 09/16/20 prednisone 20 mg tablet 20 mg PO DAILY 04/10/20 09/16/20 quetiapine 25 mg tablet (Seroquel) 25 mg PO DAILY 04/10/20 09/16/20 tiotropium bromide 18 mcg capsule 1 cap INHALATION DAILY 04/10/20 09/16/20 with inhalation device (Spiriva with HandiHaler) valsartan 320 mg tablet 320 mg PO DAILY 04/10/20 09/16/20 mirtazapine 15 mg tablet 5 mg PO BEDTIME 08/20/20 09/16/20 rosuvastatin 40 mg tablet 40 mg PO DAILY tab 08/20/20 09/16/20 Previous Rx's Medication Instructions Recorded methylcellulose (laxative) 500 mg 500 mg PO DAILY #30 tab 07/31/20 tablet (Citrucel) cholecalciferol (vitamin D3) 1,250 1,250 mcg PO QWEEK #12 cap 09/15/20 mcg (50,000 unit) capsule docusate sodium 100 mg capsule 100 mg PO BEDTIME 30 Days #30 cap 09/24/20 (Colace) sennosides 8.6 mg tablet (senna) 8.6 mg PO BEDTIME #30 tab 11/18/20 acetaminophen 325 mg tablet 650 mg PO Q4H PRN #30 tab 08/28/21 (Tylenol) cyclobenzaprine 10 mg tablet 10 mg PO TID PRN #10 tab 08/28/21 lidocaine 5 % topical patch 1 patch TOPICAL DAILY #15 ea 08/28/21 (Lidoderm) Allergies Allergy/AdvReac Type Severity Reaction Status Date / Time aspirin [ASA] Allergy Intermediate RASH AND Verified 02/14/21 14:31 ITCHING ibuprofen Allergy Intermediate rash Verified 02/14/21 14:31 itching penicillin V Allergy Intermediate rash Verified 02/14/21 14:31 Review of Systems Review of Systems: Yes all other systems are reviewed and are negative Constitutional: Constitutional: Reports no additional constitutional complaints, Denies body ache(s), Denies chills, Denies fever(s), Reports headache(s) and Denies weakness Eyes: Eyes: Reports no additional eye complaints and Denies change in vision ENT: Reports system reviewed and no additional complaints, except as documented, Reports dizziness, Reports headache(s), Denies nasal congestion, D enies nasal discharge and Denies neck pain Cardiovascular: Cardiovascular: Reports no additional cardiovascular complaints, Denies chest pain, Denies leg edema and Denies dyspnea Respiratory: Respiratory: Reports no additional respiratory complaints, Denies cough and Denies dyspnea Gastrointestinal: Gastrointestinal: Reports no additional gastrointestinal complaints, Denies abdominal pain, Denies diarrhea, Reports nausea and Denies vo miting Genitourinary: Genitourinary: Reports no additional female genitourinary complaints and Denies urinary incontinence Musculoskeletal: Musculoskeletal: Reports no additional musculoskeletal complaints, Reports back pain, Denies arthralgias, Denies joint swelling, Denies neck pain, Denies numbness and Denies tingling Integumentary/Breasts: Skin/Breast: Reports system reviewed and no additional complaints, except as docu and Denies rash Neurologic: Reports system reviewed and no additional complaints, except as documented, Denies Abnormal speech present, Reports dizziness, Reports headache(s), Denies numbness, Denies tingling and Denies weakness [facility] Past Medical History Attestation statement: The following information was validated with the patient. Source: old records reviewed and nursing notes reviewed Medical History Essential hypertension HTN (hypertension) IBS (irritable bowel syndrome) Left breast mass USP systemic steroid user Lupus (systemic lupus erythematosus) Osteoarthritis Other and unspecified hyperlipidemia Surgical History History of breast lump/mass excision Hx of cholecystectomy Hx of lymph node biopsy Family History Family History Mother Diabetes Arthritis Father Diabetes Social History Social History Household Members: None Alcohol intake: never Patient Tobacco Use Status: Never used Tobacco Use of substances other than those prescribed or required for medical reasons: No Advance Directives: No Advance Directives Information Provided: No Patient : No Physical Exam Vital Signs: Vital Signs: Last Vital Signs Temp 99.3 F 08/28/21 12:52 Pulse 88 08/28/21 12:52 Resp 19 08/28/21 12:52 BP 163/105 H 08/28/21 14:43 Pulse Ox 98 08/28/21 12:52 BMI result Body Mass Index 27.4 Const: General: cooperative, healthy appearing, comfortable and no acute distress Orientation/consciousness: patient oriented x3 Limitations: no limitations HENMT: Head: Yes normal to inspection, No Zhu's sign and No raccoon eyes Head images: 1. 7cm laceration posterior head Ears: hearing grossly normal bilaterally and TM's normal bilaterally General nose exam: Normal external nose present Face and sinus: Yes normal facial exam Mouth: Normal oral and palatal mucosa present Throat: Yes posterior oropharynx normal, Yes tonsils normal and Yes uvula midline Eyes: General: appearance normal, both eyes and all related structures Pupils: Equal, round and reactive pupils present Neck: Other: +lower cervical tenderness with no step offs or deformities Neck: Yes normal visual inspection, Yes full ROM, Yes no lymphadenopathy and Yes no meningeal signs Chest: Chest palpation & inspection: normal inspection of the chest Resp: Effort & Inspection: normal respiratory effort Auscultation: clear to auscultation bilaterally Cardio: Rate: regular rate Rhythm: regular rhythm Peripheral pulses: Peripheral pulses 2+ throughout GI: Inspection: Yes normal to inspection Palpation (GI): Soft to palpation and nontender Auscultation: normal bowel sounds Back/Spine/Pelvis: Thoracic/Lumbar Spine: thoracic and lumbar spine normal to inspection Back/spine/pelvis image: 1. Tender over soft tissue. No midline tenderness, step offs or deformities. No ecchymosis Skin: General skin exam: no rashes or lesions noted Neuro: General: patient oriented x3, moves all extremities, no meningeal s igns, no focal motor deficits and normal sensation to monofilament Cranial nerves: Yes CN's II-XII intact bilaterally, Yes Equal, round and reactive pupils present, Yes Bilaterally intact EOM present, Yes Nystagmus not present, Yes Normal facial strength present and Yes Midline tongue present Cognition (Neuro): normal cognition Speech: No Abnormal speech present Gait exam (Neuro): Normal gait present Motor exam (neuro): 5/5 motor strength present throughout Sensory Exam: Normal double simultaneous stimulation for sensation Coordination: [id number] test normal, [id number] test normal and tandem gait normal Extrem: General: Yes normal to inspection Course Course Course Narrative: 56 yo female here with complaints of mechanical fall backwards with head strike, no LOC now complaining of CALDERÓN, dizziness, nausea, neck pain, right sided back pain which radiates to the buttocks. No AC therapy use. Normal neuro exam. VSS. Posterior head has 7cm laceration with no surrounding bogginess, crepitus. She does have some lower cervical tenderness with no step offs or deformities. Tenderness over the right flank, thoracic/lumbar soft tissue right side with no ecchymosis, crepitus, swelling. No AP/CP. See wound repair note. Tetanus UTD (<5 yrs per family). Will check CT head, cervical spine, provide APAP, ribs/CXR films 1530- CT head and neck are negative. Ribs and x-ray films are negative. Labs and UA are unremarkable. We discussed concussion care at home. Reviewed limiting screen time, getting plenty of rest. She will be discharged in the care of her daughter. Reviewed worrisome signs and symptoms of when to return to the emergency department. Comfortable discharge home. - Asymptomatic hypertension. Patient can follow at home Procedures Laceration Laceration 1: Site: scalp Size (cm): 7 Description: linear Depth: simple, single layer Pre-repair: wound explored, irrigated extensively and deep structures intact Skin layer closed with: other (lori) Number of sutures: 7 MDM - Fall Medical Records Attestation: I reviewed the patient's medical records. Lab Data Attestation: I reviewed the patient's lab results. Result diagrams: 08/28/21 14:22 08/28/21 14:22 Labs: Lab Results 08/28/21 08/28/21 08/28/21 Range/Units 14:01 14:22 14:22 WBC 10.3 (4.8-10.8) X10*3/uL RBC 4.03 L (4.20-5.50) X10*6/uL Hgb 12.6 (12.0-16.0) g/dl Hct 35.7 L (37.0-47.0) % MCV 88.6 (80.0-98.0) fL MCH 31.3 (27.0-33.0) pg MCHC 35.3 H (31.0-35.0) g/dl RDW 13.6 (11.0-16.0) % Plt Count 229 (160-400) X10*3/uL MPV 10.5 (9.4-12.3) fL Immature Gran % (Auto) 0.3 (0.0-0.4) % Neut % (Auto) 72.5 (45-73) % Lymph % (Auto) 19.7 L (20-40) % [place] % (Auto) 6.8 (2-11) % Eos % (Auto) 0.5 (0-4) % Baso % (Auto) 0.2 (0-2) % Lymph # (Auto) 2.0 (1.2-4.9) X10*3/uL [place] # (Auto) 0.7 (0.1-1.2) X10*3/uL Eos # (Auto) 0.1 (0.0-0.4) X10*3/uL Baso # (Auto) 0.0 (0.0-0.2) X10*3/uL Abs Immat Gran (auto) 0.03 (0.00-0.03) X10*3/uL Absolute Neuts (auto) 7.5 (2.0-8.3) x10*3/uL Absolute Nucleated RBC 0.000 (0.0-0.012) X10*3/uL Nucleated RBC % (auto) 0.0 (0.0-0.2) /100WBC Sodium 138 (135-145) mmol/L Potassium 4.3 (3.3-5.1) mmol/L Chloride 104 (96-108) mmol/L Carbon Dioxide 25 (22-29) mmol/L Anion Gap 13 (12-20) BUN 27 H (9-16) mg/dL Creatinine 0.77 (0.5-1.4) mg/dL Estim Creat Clear Calc 74.6 Estimated GFR > 60 Random Glucose 89 (60-115) mg/dL Calcium 8.9 (8.4-10.2) mg/dL Total Bilirubin < 0.2 (0.0-1.0) mg/dL Direct Bilirubin < 0.2 (0.0-0.5) mg/dL AST 17 (5-31) U/L ALT 14 (0-31) U/L Alkaline Phosphatase 53 (39-117) U/L Total Protein 7.2 (6.5-8.0) g/dL Albumin 3.1 L (3.5-5.0) g/dL Urine Color YELLOW Urine Appearance CLEAR Urine pH 6.0 (5.0-8.0) Ur Specific [place] 1.020 (1.005-1.025) Urine Protein 3+ H (NEG-TRACE) MG/DL Urine Glucose (UA) NEG (NEG) MG/DL Urine Ketones NEG (NEG) MG/DL Urine Blood NEG (NEG) Urine Nitrite NEG (NEG) Ur Leukocyte Esterase NEG (NEG) Urine RBC 0-2 (0) /HPF Urine WBC 0-2 (0-4) /HPF Ur Squamous Epith Cells TRACE /LPF Urine Bacteria NONE /LPF Imaging Data ribs/chest xray: Attestation: I personally reviewed and interpreted this imaging study as follows: Radiologist's impression: FINDINGS: Chest: Normal appearance of the cardiomediastinal structures. No effusions or pneumothoraces. Normal pattern of pulmonary vasculature. No focal pulmonary consolidation. Partially visualized mild multilevel endplate osteophytosis of the thoracic spine. Cholecystectomy clips noted. Incidental note is made of mild bilateral costochondral calcifications. Right RIBS: A cutaneous marker is noted along the lateral thoracic wall the level of the 12th rib. No rib fractures or suspicious rib lesions identified. XR/XR ribs RT min 3V w CXR1V IMPRESSION: Chest and right RIBS: *No acute cardiopulmonary abnormalities. *No rib fractures identified. ? Ct head/neck: Attestation: I personally reviewed and interpreted this imaging study as follows: Radiologist's impression: [address] [address] [address] Scan Report Signed Patient: Yelena Mckinney MR#: [id number] : 1965 Acct:[id number] Age/Sex: 56 / F ADM Date: 08/28/21 Loc: .ED Attending Dr: Ordering Physician: Glenna Allen NP Date of Service: 08/28/21 Procedure(s): CT cervical spine wo [facility] Accession Number(s): [id number] cc: Glenna Allen NP~ EXAMINATION: CT BRAIN AND CT CERVICAL SPINE WITHOUT CONTRAST. CLINICAL INFORMATION: Status post fall. Pain. COMPARISON: None? TECHNIQUE: 5 mm thin axial and reformatted 2 mm thin sagittal and coronal images of brain were obtained without contrast. Subsequently axial 3 mm thin axial and 2 mm thin sagittal and coronal images of cervical spine were obtained without contrast. DLP 968 mGy/cm.? ? FINDINGS: Brain: There is no acute intra-axial, extra-axial bleed, masses or midline shift. The lateral ventricles are symmetrical in size and configuration without enlargement. There is grade white matter difference is maintained normal. There is no acute infarction evolution. There is no edema. Bone windows reveal no calvarial fracture. There is right posterior parietal lobe skin lori from scalp injury. Moderate soft tissue swelling is seen. Bilateral paranasal sinuses and mastoid air cells are well-aerated. CT/CT cervical spine wo con IMPRESSION: No intracranial process seen. ? Moderate soft tissue swelling right posterior parietal scalp lori from laceration. ? There is no calvarial abnormality seen.? Discharge Plan Discharge Clinical Impression: Concussion without loss of consciousness, Back contusion Patient Disposition: Home, Self-Care Instructions: Concussion (ED), Contusion in Adults (ED) Additional Instructions: heat or ice gentle stretching limit screen time get plenty of rest lori come out in 10-14 days return for severe headache, vomiting, change in behavior Prescriptions: New acetaminophen [Tylenol] 325 mg tablet 650 mg PO Q4H PRN (Reason: pain) Qty: 30 0RF cyclobenzaprine 10 mg tablet 10 mg PO TID PRN (Reason: muscle spasm) Qty: 10 0RF lidocaine [Lidoderm] 5 % adhesive patch,medicated 1 patch topical DAILY Qty: 15 0RF Rx Instructions: leave on most painful area for up to 12 hrs No Action cholecalciferol (vitamin D3) 1,250 mcg (50,000 unit) capsule 1,250 mcg PO QWEEK Qty: 12 0RF docusate sodium [Colace] 100 mg capsule 100 mg PO BEDTIME 30 Days Qty: 30 3RF Rx Instructions: TAKE NIGHTLY FOR CONSTIPATION. quetiapine [Seroquel] 25 mg Tablet 25 mg PO DAILY 0RF diltiazem HCl 240 mg capsule,extended release 24hr 240 mg PO DAILY 0RF prednisone 20 mg Tablet 20 mg PO DAILY 0RF allopurinol 100 mg Tablet 100 mg PO DAILY 0RF hydralazine 100 mg tablet 100 mg PO BID 0RF valsartan 320 mg tablet 320 mg PO DAILY 0RF furosemide [Lasix] 20 mg Tablet 20 mg PO DAILY 0RF hydroxychloroquine [Plaquenil] 200 mg Tablet 200 mg PO DAILY 0RF albuterol sulfate [ProAir HFA] 90 mcg/actuation Hfa Aerosol Inhaler 2 puff INHALATION Q4-6H PRN (Reason: Shortness Of Breath) 0RF Spiriva with HandiHaler 18 mcg Capsule, W/Inhalation Device 1 cap INHALATION DAILY 0RF olopatadine 0.2 % drops 0.2 drp ophthalmic (eye) BID 0RF budesonide-formoterol [Symbicort] 160-4.5 mcg/actuation HFA aerosol inhaler 2 puff INHALATION BID 0RF duloxetine 60 mg Capsule, Delayed Rel Sprinkle 60 mg PO DAILY 0RF Citrucel 500 mg tablet 500 mg PO DAILY Qty: 30 2RF sennosides [senna] 8.6 mg tablet 8.6 mg PO BEDTIME Qty: 30 2RF rosuvastatin 40 mg tablet 40 mg PO DAILY 0RF mirtazapine 15 mg tablet 5 mg PO BEDTIME 0RF Referrals: Alberta Toney MD [Primary Care Provider] - 1 week Interventions: ED Discharge Assessment Last Done: 08/28/21 15:22 Discharge Date/Time: 08/28/21 15:23
[2021-08-28 12:52] VITALS: BP 178/109; PULSE 88; RESP 19; TEMP 37.4; O2SAT 98
[2021-08-28 13:56] VITALS: BP 177/108
[2021-08-28] MEDS: Acetaminophen 325 MG TABLET 975 MG PO (13:57)
[2021-08-28 14:13] LABS: Appearance Urine CLEAR; Color Urine YELLOW; Glucose Urine UA NEG (NEG); Leukocyte Esterase Urine NEG (NEG); Nitrite Urine NEG (NEG); UACC Culture Trigger NO; Urine Blood NEG (NEG); Urine Ketones NEG (NEG); Urine Protein 3+ MG/DL (NEG-TRACE)
[2021-08-28 14:27] LABS: MANUAL DIFF FLAG NO
[2021-08-28 14:28] LABS: Basophils Percent Auto 0.2 % (0-2); Eosinophils Absolute Auto 0.1 X10*3/uL (0.0-0.4); Eosinophils Percent Auto 0.5 % (0-4); Hematocrit 35.7 % (37.0-47.0); Hemoglobin 12.6 g/dl (12.0-16.0); Imm Gran Abs Auto 0.03 X10*3/uL (0.00-0.03); Imm Gran Pct Auto 0.3 % (0.0-0.4); Lymphocytes Percent Auto 19.7 % (20-40); Mean Corpuscular HGB Conc 35.3 g/dl (31.0-35.0); Mean Corpuscular Hemoglobin 31.3 pg (27.0-33.0); Mean Corpuscular Volume 88.6 fL (80.0-98.0); Mean Platelet Volume 10.5 fL (9.4-12.3); Monocytes Absolute Auto 0.7 X10*3/uL (0.1-1.2); Monocytes Percent Auto 6.8 % (2-11); Neutrophils Absolute Auto 7.5 x10*3/uL (2.0-8.3); Neutrophils Percent Auto 72.5 % (45-73); Platelet Count 229 X10*3/uL (160-400); Red Blood Count 4.03 X10*6/uL (4.20-5.50); Red Cell Distribution Width 13.6 % (11.0-16.0); White Blood Count 10.3 X10*3/uL (4.8-10.8)
[2021-08-28 14:30] LABS: RBC Urine 0-2 /HPF (0); Squamous Epithelial Cell Urine TRACE /LPF; WBC Urine 0-2 /HPF (0-4)
[2021-08-28 14:43] VITALS: BP 163/105
[2021-08-28 14:49] LABS: Alanine Aminotransferase 14 U/L (0-31); Albumin Level 3.1 g/dL (3.5-5.0); Alkaline Phosphatase 53 U/L (39-117); Anion Gap 13 (12-20); Aspartate Amino Transferase 17 U/L (5-31); Bilirubin Direct < 0.2 mg/dL (0.0-0.5); Bilirubin Total < 0.2 mg/dL (0.0-1.0); Blood Urea Nitrogen 27 mg/dL (9-16); Calcium 8.9 mg/dL (8.4-10.2); Carbon Dioxide 25 mmol/L (22-29); Chloride 104 mmol/L (96-108); Creatinine Clr Calc Pharmacy 74.6; Estimated Glomerular Filt Rate > 60; Glucose Random 89 mg/dL (60-115); Potassium 4.3 mmol/L (3.3-5.1); Sodium 138 mmol/L (135-145); Total Protein 7.2 g/dL (6.5-8.0)
== END 2021-08-28 15:23 | disposition home or self-care (01) ==
PROVIDERS: Nurse Practitioner Family; Emergency Provider Emergency Medicine; PCP Internal Medicine
DX: S06.0X0A Concussion without loss of consciousness, initial encounter (principal); S01.01XA Laceration without foreign body of scalp, initial encounter; S30.0XXA Contusion of lower back and pelvis, initial encounter; W01.198A Fall on same level from slipping, tripping and stumbling with subsequent striking against other object, initial encounter; I12.9 Hypertensive chronic kidney disease with stage 1 through stage 4 chronic kidney disease, or unspecified chronic kidney disease; N18.9 Chronic kidney disease, unspecified; E78.5 Hyperlipidemia, unspecified; R06.02 Shortness of breath; M32.9 Systemic lupus erythematosus, unspecified; Z79.52 Long term (current) use of systemic steroids; Z79.02 Long term (current) use of antithrombotics/antiplatelets; Y93.E9 Activity, other interior property and clothing maintenance; Y92.038 Other place in apartment as the place of occurrence of the external cause; Y99.9 Unspecified external cause status
CPT/HCPCS: 12002; 36415; 70450; 71101; 72125; 80048; 80076; 81001; 85025; 99284

== ENCOUNTER 2021-11-06 10:31 | Emergency (ER) | payer MEDICARE, MEDICAID, SELFPAY ==
[2021-11-06 10:53] VITALS: BP 192/114; PULSE 100; RESP 18; TEMP 37.2; O2SAT 98; BMI 31.1
[2021-11-06] MEDS: Tetracaine HCl/PF 0.5% Oph Sol 4 ML DROPS 1 DROP EYE-RIGHT (11:12)
[2021-11-06] MEDS: Fluorescein Sodium STRIP 1 STRIP EYE-RIGHT (11:12)
[2021-11-06] MEDS: dilTIAZem HCL 60 MG TABLET 240 MG PO (11:21)
[2021-11-06] MEDS: Valsartan 320 MG TABLET PO (11:34)
--- NOTE | 2021-11-06 11:36 | ED_ITS ---
HPI - Eye Problem General Chief complaint: Eye Problems Stated complaint: headaches Time Seen by Provider: 11/06/21 11:04 Source: patient Mode of arrival: ambulatory Limitations: no limitations History of Present Illness HPI Narrative: 56 yo female iwth history of SLE, HLD, HTN, amyloidosis, IBS who presents to the ER with right eye pain, redness and discharge that started 2 days ago and has gotten worse. She reports she woke up this morning with crusting of the eye. It started with irritation and itching, she has been scratching at the eye due to FB sensation and now the redness is worse and started to spread to the left eye. She reports the drainage is making her vision blurry at times. She denies history of seasonal allergies, no rhinorrhea or post nasal drip. No fever or chills. The aching eye is giving her a headache today. chief complaint: eye pain and eye redness Onset (ago): day(s) (2) Onset description: unknown Duration: constant Location: right eye and both eyes Eye Symptoms: redness, pain, foreign body sensation, itching, discharge and blurry vision Place: home Mechanism: none Severity: moderate Severity scale (1-10): 6 If Pain, Quality: burning and aching Associated symptoms: headache Treatments Prior to Arrival: OTC eye drops Related Data Patient tetanus UTD: Yes Home Medications Medication Instructions Recorded Confirmed albuterol sulfate 90 mcg/actuation 2 puff INHALATION Q4-6H PRN 04/10/20 09/16/20 aerosol inhaler (ProAir HFA) allopurinol 100 mg tablet 100 mg PO DAILY 04/10/20 09/16/20 budesonide-formoterol HFA 160 2 puff INHALATION BID 04/10/20 09/16/20 mcg-4.5 mcg/actuation aerosol inhaler (Symbicort) diltiazem HCl 240 mg 240 mg PO DAILY 04/10/20 09/16/20 capsule,extended release 24 hr duloxetine 60 mg capsule,delayed 60 mg PO DAILY 04/10/20 09/16/20 release sprinkle furosemide 20 mg tablet (Lasix) 20 mg PO DAILY 04/10/20 09/16/20 hydralazine 100 mg tablet 100 mg PO BID 04/10/20 09/16/20 hydroxychloroquine 200 mg tablet 200 mg PO DAILY 04/10/20 09/16/20 (Plaquenil) olopatadine 0.2 % eye drops 0.2 drp OPHTHALMIC (EYE) BID 04/10/20 09/16/20 prednisone 20 mg tablet 20 mg PO DAILY 04/10/20 09/16/20 quetiapine 25 mg tablet (Seroquel) 25 mg PO DAILY 04/10/20 09/16/20 tiotropium bromide 18 mcg capsule 1 cap INHALATION DAILY 04/10/20 09/16/20 with inhalation device (Spiriva with HandiHaler) valsartan 320 mg tablet 320 mg PO DAILY 04/10/20 09/16/20 mirtazapine 15 mg tablet 5 mg PO BEDTIME 08/20/20 09/16/20 rosuvastatin 40 mg tablet 40 mg PO DAILY tab 08/20/20 09/16/20 Previous Rx's Medication Instructions Recorded methylcellulose (laxative) 500 mg 500 mg PO DAILY #30 tab 07/31/20 tablet (Citrucel) cholecalciferol (vitamin D3) 1,250 1,250 mcg PO QWEEK #12 cap 09/15/20 mcg (50,000 unit) capsule docusate sodium 100 mg capsule 100 mg PO BEDTIME 30 Days #30 cap 09/24/20 (Colace) sennosides 8.6 mg tablet (senna) 8.6 mg PO BEDTIME #30 tab 11/18/20 acetaminophen 325 mg tablet 650 mg PO Q4H PRN #30 tab 08/28/21 (Tylenol) cyclobenzaprine 10 mg tablet 10 mg PO TID PRN #10 tab 08/28/21 lidocaine 5 % topical patch 1 patch TOPICAL DAILY #15 ea 08/28/21 (Lidoderm) sulfacetamide sodium 10 % eye 1 drp OPHTHALMIC (EYE) Q4H #15 ml 11/06/21 drops (Bleph-10) Allergies Allergy/AdvReac Type Severity Reaction Status Date / Time aspirin [ASA] Allergy Intermediate RASH AND Verified 02/14/21 14:31 ITCHING ibuprofen Allergy Intermediate rash Verified 02/14/21 14:31 itching penicillin V Allergy Intermediate rash Verified 02/14/21 14:31 Review of Systems Review of Systems: Constitutional: No Fever, No Chills ENT/Mouth: No sore throat, No Rhinorrhea, No Swallowing Difficulty Eyes:+Eye Pain, No Swelling, + Redness, +Drainage, +Blurry vision, +FB sensation Cardiovascular: No Chest Pain, No SOB Respiratory: No Cough, No Sputum, No Wheezing, No dyspnea Gastrointestinal: No Nausea, No Vomiting Musculoskeletal: No joint pain, No Myalgias Skin: No Skin Lesions, No rash Neuro: No Weakness, No Numbness, No Dizziness, + Headache Heme/Lymph: No Bruising, No Lymphadenopathy a [facility] Past Medical History Medical History Essential hypertension HTN (hypertension) IBS (irritable bowel syndrome) 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 Lupus (systemic lupus erythematosus) Osteoarthritis Other and unspecified hyperlipidemia Surgical History History of breast lump/mass excision Hx of cholecystectomy Hx of lymph node biopsy Family History Family History Mother Diabetes Arthritis Father Diabetes Social History Social History Household Members: None Alcohol intake: never Patient Tobacco Use Status: Never used Tobacco Advance Directives: No Advance Directives Information Provided: No Physical Exam Vital Signs: Vital Signs: Last Vital Signs Temp 97.2 F 11/06/21 12:06 Pulse 92 11/06/21 12:06 Resp 16 11/06/21 12:06 BP 146/94 H 11/06/21 12:06 Pulse Ox 98 11/06/21 12:06 BMI result Body Mass Index 31.1 Appearance: Alert. Oriented X3. No acute distress. HEENT: Bilateral eyes with scleral and conjunctival injection, right eye is si gnificantly worse than the left. Pupils are round reactive to light. EOMI. No nystagmus. No discharge. Fluorescein exam in the right eye reveals tiny linear abrasion at the 8 o'clock position. No ulcerations visualized. CVS: Normal heart rate and rhythm. Pulses normal. Respiratory: No respiratory distress. Skin: Skin warm and dry. Normal skin color. Normal skin turgor. No rashes. Extremities: Normal inspection x4, normal range of motion. Neuro: Oriented X 3. No motor deficit. No sensory deficit. Strength equal and symmetrical throughout. Normal speech. Course Course Course Narrative: 56-year-old female presents to the ER with right eye pain and redness for the last 2 days. She had foreign body sensation with scratching at it and is now significantly injected. Injection and discharge has spread to the left eye concerning for possible bacterial conjunctivitis. She is COVID negative Small corneal abrasion was visualized in the right eye at the 8 o'clock position, will treat with prescription antibiotics topically. She will follow-up with her eye doctor as needed. Stable for discharge home MDM - Eye Problem Lab Data Labs: Lab Results 11/06/21 Range/Units 11:15 COVID-19 (RADHA) Negative (Negative) COVID-19 Clin Com See Note Critical Care Time Critical Care Time Critical Care Time: No Discharge Plan Discharge Clinical Impression: Bacterial conjunctivitis Patient Disposition: Home, Self-Care Instructions: Conjunctivitis (ED) Additional Instructions: Your COVID test was negative. Apply the prescribed antibiotic drops to both eyes as directed for 1 week. Follow-up with your doctor next week. Your very hypertensive today, it is important that you had here to all of your medications. Your given doses of your valsartan and diltiazem today while in the ER. If you develop new or worsening symptoms call 911 or come back to the ER for further evaluation. Prescriptions: New sulfacetamide sodium [Bleph-10] 10 % drops 1 drp ophthalmic (eye) Q4H Qty: 15 0RF No Action cholecalciferol (vitamin D3) 1,250 mcg (50,000 unit) capsule 1,250 mcg PO QWEEK Qty: 12 0RF docusate sodium [Colace] 100 mg capsule 100 mg PO BEDTIME 30 Days Qty: 30 3RF Rx Instructions: TAKE NIGHTLY FOR CONSTIPATION. quetiapine [Seroquel] 25 mg Tablet 25 mg PO DAILY 0RF diltiazem HCl 240 mg capsule,extended release 24hr 240 mg PO DAILY 0RF prednisone 20 mg Tablet 20 mg PO DAILY 0RF allopurinol 100 mg Tablet 100 mg PO DAILY 0RF hydralazine 100 mg tablet 100 mg PO BID 0RF valsartan 320 mg tablet 320 mg PO DAILY 0RF furosemide [Lasix] 20 mg Tablet 20 mg PO DAILY 0RF hydroxychloroquine [Plaquenil] 200 mg Tablet 200 mg PO DAILY 0RF albuterol sulfate [ProAir HFA] 90 mcg/actuation Hfa Aerosol Inhaler 2 puff INHALATION Q4-6H PRN (Reason: Shortness Of Breath) 0RF Spiriva with HandiHaler 18 mcg Capsule, W/Inhalation Device 1 cap INHALATION DAILY 0RF olopatadine 0.2 % drops 0.2 drp ophthalmic (eye) BID 0RF budesonide-formoterol [Symbicort] 160-4.5 mcg/actuation HFA aerosol inhaler 2 puff INHALATION BID 0RF duloxetine 60 mg Capsule, Delayed Rel Sprinkle 60 mg PO DAILY 0RF acetaminophen [Tylenol] 325 mg tablet 650 mg PO Q4H PRN (Reason: pain) Qty: 30 0RF cyclobenzaprine 10 mg tablet 10 mg PO TID PRN (Reason: muscle spasm) Qty: 10 0RF lidocaine [Lidoderm] 5 % adhesive patch,medicated 1 patch topical DAILY Qty: 15 0RF Rx Instructions: leave on most painful area for up to 12 hrs Citrucel 500 mg tablet 500 mg PO DAILY Qty: 30 2RF sennosides [senna] 8.6 mg tablet 8.6 mg PO BEDTIME Qty: 30 2RF rosuvastatin 40 mg tablet 40 mg PO DAILY 0RF mirtazapine 15 mg tablet 5 mg PO BEDTIME 0RF Interventions: ED Discharge Assessment Last Done: 11/06/21 12:20 Discharge Date/Time: 11/06/21 12:22
[2021-11-06 11:39] LABS: COVID-19 Test Negative (Negative); IDNOW Serial# 08D9AD1C
[2021-11-06 12:06] VITALS: BP 146/94; PULSE 92; RESP 16; TEMP 36.2; O2SAT 98
== END 2021-11-06 12:22 | disposition home or self-care (01) ==
PROVIDERS: Physician Assistant; Emergency Provider Emergency Medicine Emergency Medical Services; PCP Internal Medicine
DX: H10.89 Other conjunctivitis (principal); I10 Essential (primary) hypertension; E78.5 Hyperlipidemia, unspecified; Z20.822 Contact with and (suspected) exposure to COVID-19; Z79.02 Long term (current) use of antithrombotics/antiplatelets; Z79.899 Other long term (current) drug therapy
CPT/HCPCS: 87635; 99283

== ENCOUNTER 2022-04-06 09:38 | Outpatient (REF) | payer MEDICARE, MEDICAID, SELFPAY ==
[2022-04-06 13:15] LABS: Creatinine Urine 92.17 mg/dL; Protein/Creatinine Ratio, Ur 6.04 (<0.2); Total Protein Urine Random 557 mg/dL (<12)
== END 2022-04-06 09:39 | disposition home or self-care (01) ==
LOC: HO.LAB 09:38
PROVIDERS: PCP Internal Medicine; Visit Provider Internal Medicine
DX: I10 Essential (primary) hypertension (principal); E78.00 Pure hypercholesterolemia, unspecified; R80.8 Other proteinuria; M32.14 Glomerular disease in systemic lupus erythematosus
CPT/HCPCS: 84156; 86335

== ENCOUNTER 2022-04-11 08:48 | Outpatient (REF) | payer MEDICARE, MEDICAID, SELFPAY ==
[2022-04-11 09:45] LABS: Cholesterol 310 mg/dL; HDL Cholesterol 47 mg/dL; LDL Cholesterol Calculated 198 mg/dl; Triglycerides 327 mg/dL
== END 2022-04-11 08:49 | disposition home or self-care (01) ==
LOC: HO.LAB 08:48
PROVIDERS: PCP Internal Medicine; Visit Provider Internal Medicine
DX: E78.00 Pure hypercholesterolemia, unspecified (principal); I10 Essential (primary) hypertension; M32.14 Glomerular disease in systemic lupus erythematosus; R80.8 Other proteinuria
CPT/HCPCS: 36415; 80061

== ENCOUNTER 2022-07-12 12:33 | Outpatient (REF) | payer MEDICARE, MEDICAID, SELFPAY ==
--- NOTE | ~2022-07-12 | MM_ITS ---
EXAMINATION: MM SCREENING DIGITAL BREAST TOMOSYNTHESIS, BILATERAL CLINICAL INFORMATION: Screening. Asymptomatic. The lifetime risk of breast cancer based on the Tyrer-Cuzick Model is 9.2%. COMPARISON: Mammography: July 12, 2021 and studies dating back to December 31, 2015 TECHNIQUE: Digital breast tomosynthesis is performed in both the craniocaudal and mediolateral oblique views along with computer-aided detection (CAD). Synthesized 2D images are generated from the tomosynthesis. Additional right exaggerated craniocaudal view performed as well as left spot magnification craniocaudal and 90 degree mediolateral views. FINDINGS: The breasts are heterogeneously dense, which may obscure small masses (ACR BI-RADS breast composition Category c). There are no new significant masses, abnormal calcifications, or other abnormalities. Multiple seen bilaterality of calcifications again seen. MM/MM tomosynthesis screening BI IMPRESSION: No significant changes from prior exam. ASSESSMENT: BI-RADS 2: Benign RECOMMENDATION: Routine annual mammography screening. This patient's information was entered into a reminder system with a target due date for their next mammogram.
== END 2022-07-12 12:34 | disposition home or self-care (01) ==
LOC: HO.MAMMO 12:33
PROVIDERS: PCP Internal Medicine; Visit Provider Internal Medicine
DX: Z12.31 Encounter for screening mammogram for malignant neoplasm of breast (principal)
CPT/HCPCS: 77063; 77067

== ENCOUNTER 2022-09-15 10:28 | Emergency (ER) | payer MEDICARE, MEDICAID, SELFPAY ==
--- NOTE | ~2022-09-15 | CT_ITS ---
EXAMINATION: CT HEAD WITHOUT CONTRAST CLINICAL INFORMATION: Acute severe headache x3 days COMPARISON: CT head from 08/28/2021 TECHNIQUE: Contiguous axial imaging was performed from the skull base to vertex without intravenous administration of contrast. This CT examination was performed using dose optimization techniques as appropriate, variously including the following: *Automated exposure control *Adjustment of mA and/or kV according to patient size (this includes techniques or standardized protocols for targeted exams where dose is matched to indication/reason for exam; i.e. extremities or head) *Use of iterative reconstruction technique DLP: 530 mGy-cm FINDINGS: There is no evidence of acute intracranial hemorrhage or territorial infarction. No abnormal mass effect or midline shift is seen. [place] to white matter differentiation is well preserved. No extra-axial fluid collections are identified. The ventricles are normal in size. There is no abnormal attenuation within the brain parenchyma. The osseous structures and soft tissues are normal. The mastoid air cells and visualized portions of the paranasal sinuses are well aerated. CT/CT head/brain wo IV con IMPRESSION: No acute intracranial pathology.
--- NOTE | 2022-09-15 10:33 | ECG_ITS ---
Test Reason : cp Blood Pressure : / mmHG Vent. Rate : 090 BPM Atrial Rate : 090 BPM P-R Int : 144 ms QRS Dur : 084 ms QT Int : 388 ms P-R-T Axes : 052 -61 033 degrees QTc Int : 474 ms Normal sinus rhythm Left axis deviation Inferior infarct (cited on or before 14-AUG-2018) Abnormal ECG When compared with ECG of 05-JUN-2019 17:46, No significant change was found Referred By: Generic ED Physician Electronically Signed By:LALO HANLEY
[2022-09-15 10:41] VITALS: BP 172/91; PULSE 91; RESP 17; TEMP 36.4; O2SAT 97; BMI 33.2
[2022-09-15 11:03] VITALS: BP 154/89; PULSE 86; RESP 27; O2SAT 97
--- NOTE | 2022-09-15 11:07 | PC.NURSE ---
Patient resting on stretcher with family at bedside. Family states that patient is having a bad headache right now and still having some chest pain. Patient placed on monitor and vitals obtained. Lights dimmed for patient comfort.
[2022-09-15 11:27] LABS: MANUAL DIFF FLAG NO
[2022-09-15 11:29] LABS: Basophils Percent Auto 0.2 % (0-2); Eosinophils Percent Auto 0.1 % (0-4); Hematocrit 35.7 % (37.0-47.0); Hemoglobin 13.2 g/dl (12.0-16.0); Imm Gran Abs Auto 0.04 X10*3/uL (0.00-0.03); Imm Gran Pct Auto 0.4 % (0.0-0.4); Lymphocytes Absolute Auto 1.2 X10*3/uL (1.2-4.9); Lymphocytes Percent Auto 10.8 % (20-40); Mean Corpuscular Hemoglobin 30.8 pg (27.0-33.0); Mean Corpuscular Volume 83.2 fL (80.0-98.0); Mean Platelet Volume 10.7 fL (9.4-12.3); Monocytes Absolute Auto 0.4 X10*3/uL (0.1-1.2); Monocytes Percent Auto 3.8 % (2-11); Neutrophils Absolute Auto 9.2 x10*3/uL (2.0-8.3); Neutrophils Percent Auto 84.7 % (45-73); Platelet Count 265 X10*3/uL (160-400); Red Blood Count 4.29 X10*6/uL (4.20-5.50); Red Cell Distribution Width 13.4 % (11.0-16.0); White Blood Count 10.8 X10*3/uL (4.8-10.8)
[2022-09-15] MEDS: ondansetron HCL 4 MG/2 ML VIAL IVPUSH (11:44)
[2022-09-15 11:51] LABS: Troponin-I High Sensitivity < 3.5 ng/L (<3.5-17.0)
[2022-09-15 11:53] LABS: Alanine Aminotransferase 18 U/L (0-31); Alkaline Phosphatase 69 U/L (39-117); Anion Gap 13 (12-20); Aspartate Amino Transferase 18 U/L (5-31); Bilirubin Direct < 0.2 mg/dL (0.0-0.5); Bilirubin Total 0.5 mg/dL (0.0-1.0); Blood Urea Nitrogen 20 mg/dL (9-16); Carbon Dioxide 26 mmol/L (22-29); Chloride 106 mmol/L (96-108); Creatinine Clr Calc Pharmacy 76.2; Estimated Glomerular Filt Rate > 60; Glucose Random 128 mg/dL (60-115); Lipase 14 U/L (8-78); Potassium 3.5 mmol/L (3.3-5.1); Sodium 141 mmol/L (135-145); Total Protein 7.3 g/dL (6.5-8.0)
--- NOTE | 2022-09-15 11:53 | PC.NURSE ---
Patient complaining of nausea and some vomiting. Provider made aware and zofran was ordered and given.
--- NOTE | 2022-09-15 12:02 | ED_ITS ---
HPI - General Adult General Chief complaint: General Medical Stated complaint: chest pain, dizziness, elevated blood pressure Time Seen by Provider: 09/15/22 11:34 Source: patient Mode of arrival: ambulatory Limitations: no limitations History of Present Illness HPI narrative: Patient experiencing headaches, fatigue, generalized weakness. Started 3-4 days ago. The symptoms are moderate to severe in nature. There is not clear releiving or rexacerbating features. BP at home has been moderately elevated in [id number]. Has been compliant with medications Went to PMD today and started on a new medication that she has not yet started. The headache is located on right posterior radiating to the front of the head. No neck pain or stiffness. The headache came on gradually and not thunderclap. It is associated with nasuea and vomiting x 3 today. She is taking valsartan, hydralazine, diltiazem and was supposed to start metoprolol. There is no f/c/s. No diiarrhea and constipation. Her pain level is 10/10. The pain is described as pressure. No chest pain, SOB, palpitations, lightheaded. Related Data Home Medications Medication Instructions Recorded Confirmed albuterol sulfate 90 mcg/actuation 2 puff inhalation Q4-6H PRN 04/10/20 09/16/20 aerosol inhaler (ProAir HFA) Shortness Of Breath allopurinol 100 mg tablet 100 mg PO DAILY 04/10/20 09/16/20 budesonide-formoterol HFA 160 2 puff inhalation BID 04/10/20 09/16/20 mcg-4.5 mcg/actuation aerosol inhaler (Symbicort) diltiazem HCl 240 mg 240 mg PO DAILY 04/10/20 09/16/20 capsule,extended release 24 hr duloxetine 60 mg capsule,delayed 60 mg PO DAILY 04/10/20 09/16/20 release sprinkle furosemide 20 mg tablet (Lasix) 20 mg PO DAILY 04/10/20 09/16/20 hydralazine 100 mg tablet 100 mg PO BID 04/10/20 09/16/20 hydroxychloroquine 200 mg tablet 200 mg PO DAILY 04/10/20 09/16/20 (Plaquenil) olopatadine 0.2 % eye drops 0.2 drp ophthalmic (eye) BID 04/10/20 09/16/20 prednisone 20 mg tablet 20 mg PO DAILY 04/10/20 09/16/20 quetiapine 25 mg tablet (Seroquel) 25 mg PO DAILY 04/10/20 09/16/20 tiotropium bromide 18 mcg capsule 1 cap inhalation DAILY 04/10/20 09/16/20 with inhalation device (Spiriva with HandiHaler) valsartan 320 mg tablet 320 mg PO DAILY 04/10/20 09/16/20 mirtazapine 15 mg tablet 5 mg PO BEDTIME 08/20/20 09/16/20 rosuvastatin 40 mg tablet 40 mg PO DAILY 08/20/20 09/16/20 Previous Rx's Medication Instructions Recorded methylcellulose (laxative) 500 mg 500 mg PO DAILY #30 tabs 07/31/20 tablet (Citrucel) cholecalciferol (vitamin D3) 1,250 1,250 mcg PO QWEEK #12 caps 09/15/20 mcg (50,000 unit) capsule docusate sodium 100 mg capsule 100 mg PO BEDTIME 30 days #30 caps 09/24/20 (Colace) sennosides 8.6 mg tablet (senna) 8.6 mg PO BEDTIME #30 tabs 11/18/20 acetaminophen 325 mg tablet 650 mg PO Q4H PRN pain #30 tabs 08/28/21 (Tylenol) cyclobenzaprine 10 mg tablet 10 mg PO TID PRN muscle spasm #10 08/28/21 tabs lidocaine 5 % topical patch 1 patch topical DAILY #15 ea 08/28/21 (Lidoderm) sulfacetamide sodium 10 % eye 1 drp ophthalmic (eye) Q4H #15 mL 11/06/21 drops (Bleph-10) ondansetron 4 mg disintegrating 4 mg PO Q8H PRN nausea and 09/15/22 tablet vomiting #7 tabs tramadol 50 mg tablet 50 mg PO BID PRN pain #7 tabs 09/15/22 Allergies Allergy/AdvReac Type Severity Reaction Status Date / Time aspirin [ASA] Allergy Intermediate RASH AND Verified 02/14/21 14:31 ITCHING ibuprofen Allergy Intermediate rash Verified 02/14/21 14:31 itching penicillin V Allergy Intermediate rash Verified 02/14/21 14:31 COUNTS INCLUDE 234 BEDS AT THE [facility] Past Medical History Medical History Essential hypertension HTN (hypertension) IBS (irritable bowel syndrome) 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 Lupus (systemic lupus erythematosus) Osteoarthritis Other and unspecified hyperlipidemia Surgical History History of breast lump/mass excision Hx of cholecystectomy Hx of lymph node biopsy Family History Family History Mother Diabetes Arthritis Father Diabetes Social History Social History Household Members: None Alcohol intake: never Patient Tobacco Use Status: Never used Tobacco Smoked in Last 30 Days: No Use of substances other than those prescribed or required for medical reasons: No Advance Directives: No Physical Exam ED Vital Signs: Vital Signs - 24 hr 09/15/22 10:41 09/15/22 11:03 09/15/22 12:19 Temperature 97.6 F Pulse Rate 91 86 87 Respiratory Rate 17 27 H 24 H Blood Pressure 172/91 H 154/89 H 163/91 H Pulse Oximetry 97 97 96 Oxygen Delivery Method Room Air Room Air 09/15/22 14:09 Temperature Pulse Rate 79 Respiratory Rate 18 Blood Pressure 149/87 H Pulse Oximetry 96 Oxygen Delivery Method Room Air BMI result Body Mass Index 33.2 GEN: Well developed, no acute distress, alert, oriented HEENT: Normocephalic, atraumatic, normal external ears, nose appears normal, no oropharyngeal edema or exudates Eyes: Normal to appearance Neck: Supple, no lymphadenopathy Respiratory: Talks in complete sentences, no respiratory distress, clear to au scultation bilaterally Cardiovascular: Regular rate and rhythm, no murmurs rubs or gallops Abdomen: Soft, nontender, nondistended, no guarding, no rebound Back: No CVA tenderness Extremities: No clubbing cyanosis or edema Neurologic: No focal neurologic deficits, cranial nerves 2-12 intact, strength is 5/5 bilaterally, gait normal Skin: No rash Course Course Course Narrative: Patient with elevated BP, headache, nasuea and vominting. Exam without focal deficits. BP elevated but to concerningly elevated. Will obtain labs, ECG, CT head. Will manage pain and nausae. Will reevaluate patient. Reevaluation(s) Reevaluation #1: Patient is feeling much better. Her blood pressure has been 132 slightly hypertensive. She continues have a mild headache and discomfort but otherwise feels good. She would like to be discharged at this time. We discussed all results. She will take her medications as she has been instructed to do so. She has a follow-up appointment next week regarding her blood pressure managemen t. Time: 14:39 Medications Administered Discontinued Medications Generic Name Dose Route Start Last Admin Trade Name Derek PRN Reason Stop Dose Admin Acetaminophen 975 mg 09/15/22 12:09 09/15/22 12:21 Acetaminophen 325 Mg Tablet PO 09/15/22 12:10 975 mg ONCE ONE Administration Metoclopramide HCl 10 mg 09/15/22 12:08 09/15/22 12:22 Metoclopramide Hcl 10 Mg/2 Ml Vial IVPUSH 09/15/22 12:09 10 mg ONCE ONE Administration Ondansetron HCl 4 mg 09/15/22 11:35 09/15/22 11:44 Ondansetron Hcl 4 Mg/2 Ml Vial IVPUSH 09/15/22 11:36 4 mg ONCE ONE Administration Medical Decision Making Medical Decision Making [facility] Narrative: 57-year-old female presents with headache, elevated blood pressure, nausea vomiting. Examination revealed no focal neurologic deficits. Unclear whether her elevated blood pressures actually causing her symptoms or vice versa. Will provide patient with IV fluids, analgesics, antiemetics. Will obtain a CT scan of the head to rule out acute intracranial process and mass effect. Patient has already been prescribed a new blood pressure medication by her primary care provider today. Will not make any additional just wants to her blood pressure medicine regimen at this time daughter was present for the conversation as well. Patient's headache was gradual in onset over the past 3 days. Her pain is now severe. She denies any neck pain or stiffness. There is no fever or chills. Doubt meningitis, subarachnoid hemorrhage. There is no trauma to suggest subdural or epidural hematoma Differential Diagnosis Differential Diagnoses: The differential diagnosis associated with the presentation includes (Hypertensive urgency, hypertensive emergency, headache, tension headache, migraine headache, cluster headache, subarachnoid hemorrhage, subdural hematoma, epidural hematoma) Headache, elevated blood pressure Admission/Observation Consideration of admission/observation: Escalation of care including a dmission/observation considered Lab Data [facility] Lab Attestation statement: I reviewed the patient's lab results. 09/15/22 11:22 09/15/22 11:22 Labs: Lab Results 09/15/22 09/15/22 09/15/22 Range/Units 11:22 11:22 11:22 WBC 10.8 (4.8-10.8) X10*3/uL RBC 4.29 (4.20-5.50) X10*6/uL Hgb 13.2 (12.0-16.0) g/dl Hct 35.7 L (37.0-47.0) % MCV 83.2 (80.0-98.0) fL MCH 30.8 (27.0-33.0) pg MCHC 37.0 H (31.0-35.0) g/dl RDW 13.4 (11.0-16.0) % Plt Count 265 (160-400) X10*3/uL MPV 10.7 (9.4-12.3) fL Immature Gran % (Auto) 0.4 (0.0-0.4) % Neut % (Auto) 84.7 H (45-73) % Lymph % (Auto) 10.8 L (20-40) % Monroe % (Auto) 3.8 (2-11) % Eos % (Auto) 0.1 (0-4) % Baso % (Auto) 0.2 (0-2) % Lymph # (Auto) 1.2 (1.2-4.9) X10*3/uL Monroe # (Auto) 0.4 (0.1-1.2) X10*3/uL Eos # (Auto) 0.0 (0.0-0.4) X10*3/uL Baso # (Auto) 0.0 (0.0-0.2) X10*3/uL Abs Immat Gran (auto) 0.04 H (0.00-0.03) X10*3/uL Absolute Neuts (auto) 9.2 H (2.0-8.3) x10*3/uL Absolute Nucleated RBC 0.000 (0.0-0.012) X10*3/uL Nucleated RBC % (auto) 0.0 (0.0-0.2) /100WBC Sodium 141 (135-145) mmol/L Potassium 3.5 (3.3-5.1) mmol/L Chloride 106 (96-108) mmol/L Carbon Dioxide 26 (22-29) mmol/L Anion Gap 13 (12-20) BUN 20 H (9-16) mg/dL Creatinine 0.82 (0.5-1.4) mg/dL Estim Creat Clear Calc 76.2 Estimated GFR > 60 Random Glucose 128 H (60-115) mg/dL Calcium 9.0 (8.4-10.2) mg/dL Total Bilirubin 0.5 (0.0-1.0) mg/dL Direct Bilirubin < 0.2 (0.0-0.5) mg/dL AST 18 (5-31) U/L ALT 18 (0-31) U/L Alkaline Phosphatase 69 (39-117) U/L Troponin I High Sens < 3.5 (<3.5-17.0) ng/L Total Protein 7.3 (6.5-8.0) g/dL Albumin 3.0 L (3.5-5.0) g/dL Lipase 14 (8-78) U/L Independent Interpretation I performed an independent interpretation of an: EKG (Normal sinus rhythm heart rate 90, no acute ST elevations depressions, Q-waves in lead 3 and AVF suggest malron of an old inferior wall WA, nonspecific T-wave changes, no acute ischemia.) and CT Scan (CT head NAD) Radiology Impression Discussion of test interpretation with radiology: I have reviewed the radiologist's reading. ( CT/CT head/brain wo IV con IMPRESSION: No acute intracranial pathology. Dictated By:Jimmy Cortez MDSigned By:<Electronically signed by Jimmy Cortez MD in OV>09/15/22 [id number]) Independent Historian Clinical information obtained from an independent historian. History obtained from or confirmed by: Other (Daughter) Tests considered The following testing was considered but not selected: MRI Prescription Management I considered prescription management with: Pain Medication Discharge Plan Discharge Clinical Impression: Headache, Essential hypertension Patient Disposition: Home, Self-Care Instructions: Chronic Hypertension (DC), General Headache (ED) Prescriptions: New ondansetron 4 mg tablet,disintegrating 4 mg PO Q8H PRN (Reason: nausea and vomiting) Qty: 7 0RF tramadol 50 mg tablet 50 mg PO BID PRN (Reason: pain) Qty: 7 0RF No Action cholecalciferol (vitamin D3) 1,250 mcg (50,000 unit) capsule 1,250 mcg PO QWEEK Qty: 12 0RF docusate sodium [Colace] 100 mg capsule 100 mg PO BEDTIME 30 Days Qty: 30 3RF Rx Instructions: TAKE NIGHTLY FOR CONSTIPATION. quetiapine [Seroquel] 25 mg Tablet 25 mg PO DAILY diltiazem HCl 240 mg capsule,extended release 24hr 240 mg PO DAILY prednisone 20 mg Tablet 20 mg PO DAILY allopurinol 100 mg Tablet 100 mg PO DAILY hydralazine 100 mg tablet 100 mg PO BID valsartan 320 mg tablet 320 mg PO DAILY furosemide [Lasix] 20 mg Tablet 20 mg PO DAILY hydroxychloroquine [Plaquenil] 200 mg Tablet 200 mg PO DAILY albuterol sulfate [ProAir HFA] 90 mcg/actuation Hfa Aerosol Inhaler 2 puff INHALATION Q4-6H PRN (Reason: Shortness Of Breath) Spiriva with HandiHaler 18 mcg Capsule, W/Inhalation Device 1 cap INHALATION DAILY olopatadine 0.2 % drops 0.2 drp ophthalmic (eye) BID budesonide-formoterol [Symbicort] 160-4.5 mcg/actuation HFA aerosol inhaler 2 puff INHALATION BID duloxetine 60 mg Capsule, Delayed Rel Sprinkle 60 mg PO DAILY acetaminophen [Tylenol] 325 mg tablet 650 mg PO Q4H PRN (Reason: pain) Qty: 30 0RF cyclobenzaprine 10 mg tablet 10 mg PO TID PRN (Reason: muscle spasm) Qty: 10 0RF lidocaine [Lidoderm] 5 % adhesive patch,medicated 1 patch topical DAILY Qty: 15 0RF Rx Instructions: leave on most painful area for up to 12 hrs sulfacetamide sodium [Bleph-10] 10 % drops 1 drp ophthalmic (eye) Q4H Qty: 15 0RF Citrucel 500 mg tablet 500 mg PO DAILY Qty: 30 2RF sennosides [senna] 8.6 mg tablet 8.6 mg PO BEDTIME Qty: 30 2RF rosuvastatin 40 mg tablet 40 mg PO DAILY mirtazapine 15 mg tablet 5 mg PO BEDTIME
[2022-09-15 12:19] VITALS: BP 163/91; PULSE 87; RESP 24; O2SAT 96
[2022-09-15] MEDS: Acetaminophen 325 MG TABLET 975 MG PO (12:21)
[2022-09-15] MEDS: Metoclopramide HCl 10 MG/2 ML VIAL IVPUSH (12:22)
[2022-09-15 14:09] VITALS: BP 149/87; PULSE 79; RESP 18; O2SAT 96
[2022-09-15] MEDS: traMADoL HCL 50 MG TABLET PO (15:05)
[2022-09-15] MEDS: Metoprolol Tartrate 12.5 MG HALFTAB PO (15:05)
[2022-09-15 15:11] VITALS: BP 144/84; PULSE 71; RESP 14; O2SAT 99
== END 2022-09-15 15:12 | disposition home or self-care (01) ==
PROVIDERS: Emergency Provider Emergency Medicine; PCP Internal Medicine
DX: R07.89 Other chest pain (principal); R42 Dizziness and giddiness; I10 Essential (primary) hypertension; R51.9 Headache, unspecified; Z79.899 Other long term (current) drug therapy
CPT/HCPCS: 36415; 70450; 80048; 80076; 83690; 84484; 85025; 93005; 96374; 96375; 99284; 99285; J2405; J2765

== ENCOUNTER 2022-10-18 09:07 | Outpatient (REF) | payer MEDICARE, MEDICAID, SELFPAY ==
[2022-10-18 09:34] LABS: MANUAL DIFF FLAG NO
[2022-10-18 10:10] LABS: Basophils Percent Auto 0.3 % (0-2); Eosinophils Absolute Auto 0.1 X10*3/uL (0.0-0.4); Hematocrit 35.1 % (37.0-47.0); Hemoglobin 12.3 g/dl (12.0-16.0); Imm Gran Abs Auto 0.03 X10*3/uL (0.00-0.03); Imm Gran Pct Auto 0.4 % (0.0-0.4); Lymphocytes Absolute Auto 1.5 X10*3/uL (1.2-4.9); Lymphocytes Percent Auto 18.8 % (20-40); Mean Corpuscular Hemoglobin 30.3 pg (27.0-33.0); Mean Corpuscular Volume 86.5 fL (80.0-98.0); Mean Platelet Volume 11.3 fL (9.4-12.3); Monocytes Absolute Auto 0.6 X10*3/uL (0.1-1.2); Monocytes Percent Auto 7.5 % (2-11); Neutrophils Absolute Auto 5.7 x10*3/uL (2.0-8.3); Platelet Count 263 X10*3/uL (160-400); Red Blood Count 4.06 X10*6/uL (4.20-5.50); Red Cell Distribution Width 14.5 % (11.0-16.0); White Blood Count 7.9 X10*3/uL (4.8-10.8)
[2022-10-18 10:15] LABS: INTERNATIONAL NORM RATIO 0.9 (0.9-1.1); Prothrombin Time 10.4 SEC (10.0-13.1)
[2022-10-18 10:40] LABS: Alanine Aminotransferase 16 U/L (0-31); Alkaline Phosphatase 62 U/L (39-117); Anion Gap 12 (12-20); Aspartate Amino Transferase 16 U/L (5-31); Bilirubin Total 0.2 mg/dL (0.0-1.0); Blood Urea Nitrogen 22 mg/dL (9-16); Calcium 8.8 mg/dL (8.4-10.2); Carbon Dioxide 26 mmol/L (22-29); Chloride 108 mmol/L (96-108); Estimated Glomerular Filt Rate > 60; Glucose Random 107 mg/dL (60-115); Sodium 142 mmol/L (135-145); Total Protein 7.2 g/dL (6.5-8.0)
[2022-10-19 13:57] LABS: Complement C3 69 mg/dL (83-193)
[2022-10-20 23:44] LABS: Prot Elec - Albumin 3.2 g/dL (3.8-4.8); Prot Elec - Alpha1 0.3 g/dL (0.2-0.3); Prot Elec - Alpha2 0.8 g/dL (0.5-0.9); Prot Elec - Beta 1 0.5 g/dL (0.4-0.6); Prot Elec - Beta 2 0.7 g/dL (0.2-0.5); Prot Elec - Gamma 1.8 g/dL (0.8-1.7); Prot Elec - Total Protein 7.2 g/dL (6.1-8.1)
[2022-10-21 15:58] LABS: Anti Glomerular Basement Memb <1.0 AI
[2022-10-22 00:44] LABS: IgA 879 mg/dL (47-310); IgG 2083 mg/dL (600-1640); IgM 87 mg/dL (50-300)
[2022-10-26 12:54] LABS: Anti Nuclear Antibody Pattern Nuclear, Speckled; Anti Nuclear Antibody Screen POSITIVE (NEGATIVE)
== END 2022-10-18 09:08 | disposition home or self-care (01) ==
LOC: HO.LAB 09:07
PROVIDERS: Absent Provider Internal Medicine Hypertension Specialist; PCP Internal Medicine; Visit Provider Internal Medicine Medical Oncology
DX: M32.14 Glomerular disease in systemic lupus erythematosus (principal); E85.9 Amyloidosis, unspecified
CPT/HCPCS: 36415; 80053; 82784; 83520; 84165; 85025; 85610; 86038; 86039; 86160; 86334

== ENCOUNTER 2022-10-19 10:04 | Outpatient (REF) | payer MEDICARE, MEDICAID, SELFPAY ==
[2022-10-19 11:50] LABS: Creatinine Urine 45.44 mg/dL
[2022-10-19 12:15] LABS: Microalbum/Creatinine Ratio Ur 2451.5 ug/mg cr
[2022-10-24 12:27] LABS: PEU-Protein Creat Ratio Rand 3.489 (0.024-0.184); PEU-Rand. Prot/Creat Ratio 3489 mg/g creat (24-184); PEU-Random Ur. Gamma Globulin 13 %; PEU-Random Urine A1 Globulin 3 %; PEU-Random Urine A2 Globulin 6 %; PEU-Random Urine Albumin 67 %; PEU-Random Urine Beta Globulin 11 %; PEU-Random Urine Creatinine 47 mg/dL (20-275); PEU-Random Urine Protein 164 mg/dL (5-24)
== END 2022-10-19 10:05 | disposition home or self-care (01) ==
LOC: HO.LNP 10:04
PROVIDERS: Visit Provider Internal Medicine
DX: Z13.89 Encounter for screening for other disorder (principal)
CPT/HCPCS: 82043; 82570; 84156; 84166

== ENCOUNTER 2023-02-07 11:12 | Outpatient (REF) | payer MEDICARE, MEDICAID, SELFPAY ==
--- NOTE | ~2023-02-07 | CT_ITS ---
EXAMINATION: CT CHEST WITHOUT CONTRAST CLINICAL INFORMATION: Pulmonary nodule COMPARISON: Previous chest and right rib x-ray October [address] March 2013 TECHNIQUE: Multidetector volumetric CT imaging of the chest was done. Axial MIP volume rendering provided. Sagittal and coronal reformatted images were obtained. This CT examination was performed using dose optimization techniques as appropriate, variously including the following: *Automated exposure control *Adjustment of mA and/or kV according to patient size (this includes techniques or standardized protocols for targeted exams where dose is matched to indication/reason for exam; i.e. extremities or head) *Use of iterative reconstruction technique DLP: 138 mGy-cm FINDINGS: LUNGS: There are several new new small bilateral upper lobe nodules, largest a peripheral or subpleural anterior right apical nodule axial image 59 series 5. The previously identified more lateral right apical nodule axial image 69 series 6 and 2012 exam is no longer seen. New small clustered right middle lobe lateral segment nodules largest nodule measuring 2 to 3 mm axial image 253 series 5 for example. This may represent tree-in-bud appearance or airways disease. Similar changes seen in the peripheral or subpleural right lower lobe for example axial image 2 61 and 273 series 5 and anterior segment of the right upper lobe for example axial image 121 series 5. There is interval increase in density in the now solid left lower lobe peripheral or subpleural nodule measuring 7 x 14 mm axial image 323 series 5. Previously this appeared partially cavitary on March 2013 exam. There is adjacent pleural thickening that is unchanged. There are are adjacent clustered left lower lobe nodules in the posterior costophrenic sulcus for example axial image 338 series 5, largest measuring 3 mm. Appearances is suggestive of airways disease as well. There is a 6 mm peripheral or subpleural left lower lobe nodule adjacent to the diaphragmatic pleural surface axial image 344 series 5 that is stable. The previously identified and semisolid 5 mm peripheral or subpleural medial left lower lobe nodule axial image 407 series 6 is no longer seen. MEDIASTINUM: Diffuse mediastinal lymphadenopathy. Lymph nodes are upper normal in size. Normal heart size. No pericardial effusion. Visualized thyroid gland is normal. CORONARY ARTERY CALCIFICATION: Moderate PLEURA: There is no pleural effusion. No pleural mass or thickening. AXILLA: Bilateral axillary lymphadenopathy. Lymph nodes appear decreased in size from prior 2013 exam. There may be new surgical clips in the right lateral breast. UPPER ABDOMEN: Small calcification in the liver. OSSEOUS STRUCTURES: Degenerative changes of the spine. CT/CT chest wo IV con IMPRESSION: Waxing and waning appearance of pulmonary nodules compared to March 2013 exam. Areas of new clustered small peribronchial 2 to 3 mm nodules probably representing airways disease. Interval increase in density in the now solid peripheral or subpleural left lower lobe nodule measuring 7 x 14 mm that was previously cavitary. There is adjacent pleural thickening that is stable. Infectious, inflammatory and neoplastic processes should be considered. Short-term chest CT follow-up, tissue sampling or PET/CT scan should be considered. Upper normal-size mediastinal lymph nodes. Fleischner guidelines were followed.
== END 2023-02-07 11:13 | disposition home or self-care (01) ==
LOC: HO.CT 11:12
PROVIDERS: PCP Internal Medicine; Visit Provider Internal Medicine
DX: R91.1 Solitary pulmonary nodule (principal)
CPT/HCPCS: 71250

== ENCOUNTER 2023-03-10 10:02 | Outpatient (REF) | payer MEDICARE, MEDICAID, SELFPAY ==
[2023-03-10 12:46] LABS: Anion Gap 11 (12-20); Blood Urea Nitrogen 26 mg/dL (9-16); Carbon Dioxide 27 mmol/L (22-29); Chloride 106 mmol/L (96-108); Estimated Glomerular Filt Rate > 60; Potassium 4.2 mmol/L (3.3-5.1); Sodium 140 mmol/L (135-145)
[2023-03-10 13:39] LABS: Appearance Urine Clear; Color Urine Yellow; Glucose Urine UA Negative (Negative); Leukocyte Esterase Urine Moderate (2+) (Negative); Nitrite Urine Negative (Negative); PH 5.5 (5.0-9.0); Specific Gravity - Urine 1.015 (1.005-1.025); UMIC TRIGGER UA YES; Urine Blood Negative (Negative); Urine Ketones Negative (Negative); Urine Protein 300 (3+) mg/dL (Neg-Trace)
[2023-03-10 13:43] LABS: Bacteria Urine None Seen (None Seen); Hyaline Casts Urine 0-2 /LPF (0-2); RBC Urine 0-2 /HPF (0-2); WBC Urine 21-50 /HPF (0-5)
[2023-03-10 14:05] LABS: Creatinine Urine 114.78 mg/dL
[2023-03-10 14:18] LABS: Protein/Creatinine Ratio, Ur 3.09 (<0.2); Total Protein Urine Random 355 mg/dL (<12)
== END 2023-03-10 10:03 | disposition home or self-care (01) ==
LOC: HO.LAB 10:02
PROVIDERS: Visit Provider Internal Medicine Hypertension Specialist
DX: M32.14 Glomerular disease in systemic lupus erythematosus (principal)
CPT/HCPCS: 36415; 80051; 81001; 82310; 82565; 82570; 84156; 84520

== ENCOUNTER → 2023-04-28 11:00 | Outpatient (BNV) | payer MEDICARE, MEDICAID, SELFPAY | PROVIDERS: PCP Internal Medicine; Visit Provider Internal Medicine Medical Oncology | DX: E85.9 Amyloidosis, unspecified (principal) | CPT/HCPCS: 99203 ==

== ENCOUNTER 2023-07-10 13:21 | Outpatient (AMB) | payer MEDICARE, MEDICAID, SELFPAY ==
--- NOTE | 2023-07-10 13:23 | HO.NEPHOV_ITS ---
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 20% global sclerosis Mild interstitial fibrosis and tubular atrophy. 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 Lupus (systemic lupus erythematosus) Osteoarthritis Other and unspecified hyperlipidemia Surgical History History of breast lump/mass excision Hx of lymph node biopsy Hx of cholecystectomy Family History Mother Diabetes Arthritis Lupus Father Diabetes Sister Rheumatoid arthritis Social History Household Members: None Alcohol intake: never Patient Tobacco Use Status: Never used Tobacco service: No Current occupational status: retired Vital Signs 07/10/23 13:24 Height 5 ft 3 in Weight 178 lb BMI 31.5 BP 122/84 Blood Pressure Location Lt brachial Position Sitting Pulse 97 Pulse Source Pulse Oximeter Pulse Oximetry (%) 98 Oxygen Delivery Method Room Air Physical Exam Vital Signs: Last Vital Signs Pulse 97 07/10/23 13:24 BP 122/84 07/10/23 13:24 Pulse Ox 98 07/10/23 13:24 Oxygen Delivery Method Room Air 07/10/23 13:24 BMI result Body Mass Index 31.5 Const General: comfortable Nutritional Appearance: well nourished Orientation/consciousness: patient oriented x3 HEENT Head: No normal to inspection Mouth: moist mucous membranes Neck Neck: Yes supple and Yes no JVD Resp Auscultation: clear to auscultation bilaterally, no rales and rub present Cardio Jugular venous distension: no JVD Palpation: no palpable S3 and no palpable S4 Heart sounds: no rubs GI Palpation (GI): Soft to palpation and nontender Percussion: No Fluid wave present General: Yes no CVA tenderness Back/Spine/Pelvis Back: no CVA tenderness Skin General skin exam: no rashes or lesions noted Neuro General: patient oriented x3 Extrem Other: Tenderness along right malleoli General: Yes no pedal edema and No clubbing Assessment & Plan Assessment & Plan (1) Lupus (systemic lupus erythematosus): Code(s): M32.9 - Systemic lupus erythematosus, unspecified Qualifiers: Systemic lupus erythematosus organ involvement: glomerular disease Systemic lupus erythematosus type: unspecified Qualified Code(s): M32.14 - Glomerular disease in systemic lupus erythematosus Plan Renal function is stable Still with nephrotic range proteinuria Continue Lupus management per rheumatology No changes were made BP well controlled Continue max dose of Valsartan for renal protection Ordered xray of rt ankle at her request Orders: Orders Total Protein Urine Random Today M32.9 - Systemic lupus erythematosus, unspecified, S99.911A - Unspecified injury of right ankle, initial encounter Creatinine Urine Today M32.9 - Systemic lupus erythematosus, unspecified, S99.911A - Unspecified injury of right ankle, initial encounter Creatinine Today M32.9 - Systemic lupus erythematosus, unspecified, S99.911A - Unspecified injury of right ankle, initial encounter XR foot RT 2V Today M32.9 - Systemic lupus erythematosus, unspecified, S99.911A - Unspecified injury of right ankle, initial encounter Electrolytes Today M32.9 - Systemic lupus erythematosus, unspecified, S99.911A - Unspecified injury of right ankle, initial encounter Blood Urea Nitrogen Today M32.9 - Systemic lupus erythematosus, unspecified, S99.911A - Unspecified injury of right ankle, initial encounter Calcium Today M32.9 - Systemic lupus erythematosus, unspecified, S99.911A - Unspecified injury of right ankle, initial encounter Coding Level of Care Code Est Pt Level 4 (72431) Diagnoses Systemic lupus erythematosus with glomerular disease, unspecified SLE type M32.14 Systemic lupus erythematosus organ involvement: glomerular disease Systemic lupus erythematosus type: unspecified Results Reviewed Results Reviewed: October 2022 Kidney Biopsy revealed 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 20% global sclerosis Mild interstitial fibrosis and tubular atrophy. Nephrology Results: Hgb 12.9 g/dl (12.0-16.0) 04/28/23 WBC 8.7 X10*3/uL (4.8-10.8) 04/28/23 Plt Count 231 X10*3/uL (160-400) 04/28/23 Sodium 142 mmol/L (135-145) 04/28/23 Potassium 3.7 mmol/L (3.3-5.1) 04/28/23 Chloride 107 mmol/L (96-108) 04/28/23 Carbon Dioxide 30 mmol/L (22-29) H 04/28/23 BUN 18 mg/dL (9-16) H 04/28/23 Creatinine 0.84 mg/dL (0.5-1.4) 04/28/23 Calcium 9.0 mg/dL (8.4-10.2) 04/28/23 Urine Protein 300 (3+) mg/dL (Neg-Trace) H 03/10/23 Urine Creatinine 114.78 mg/dL 03/10/23 Protein/Creatinin Ratio 3.09 (<0.2) H 03/10/23
[2023-07-10 13:24] VITALS: BP 122/84; PULSE 97; O2SAT 98; BMI 31.5
== END 2023-07-10 13:43 | disposition home or self-care (01) ==
PROVIDERS: PCP Internal Medicine; Visit Provider Internal Medicine Hypertension Specialist
DX: M32.14 Glomerular disease in systemic lupus erythematosus (principal)
CPT/HCPCS: 99214

== ENCOUNTER 2023-07-10 13:21 | Outpatient (REF) | payer MEDICARE, SELFPAY ==
--- NOTE | ~2023-07-10 | XR_ITS ---
EXAMINATION: XR FOOT, RIGHT CLINICAL INFORMATION: Systemic lupus erythematosus. COMPARISON: None available. TECHNIQUE: AP, lateral, and oblique views of the right foot. FINDINGS: Bony alignment and mineralization are normal. No fracture, dislocation or right ankle joint effusion is seen. Boehler's angle is normal. There are small posterior and plantar calcaneal spurs. No abnormal bone erosion is seen. An intramedullary jelena and distal fixator screw are visualized applied to the distal right tibia, incompletely covered. No focal soft tissue swelling, gas or foreign body is seen. XR/XR foot RT 2V IMPRESSION: 1. No acute fracture, dislocation or right ankle joint effusion is seen. 2. There are small calcaneal spurs. 3. There is no abnormal bone erosion.
== END 2023-07-10 13:22 | disposition home or self-care (01) ==
LOC: HO.XRAY 13:21
PROVIDERS: PCP Internal Medicine; Visit Provider Internal Medicine Hypertension Specialist
DX: S99.911A Unspecified injury of right ankle, initial encounter (principal); M32.14 Glomerular disease in systemic lupus erythematosus; M32.9 Systemic lupus erythematosus, unspecified
CPT/HCPCS: 73620; 99212

== ENCOUNTER 2023-07-21 12:40 | Emergency (ER) | payer MEDICARE, MEDICAID, SELFPAY ==
--- NOTE | ~2023-07-21 | CT_ITS ---
EXAMINATION: CT ABDOMEN AND PELVIS WITHOUT CONTRAST CLINICAL INFORMATION: Left flank/back pain. Previous history of kidney stones. COMPARISON: CT chest without contrast 02/05/2023 TECHNIQUE: Multidetector volumetric imaging was performed from the superior aspect of the liver through the pubic symphysis. Sagittal and coronal reformatted images were obtained on the technologist's workstation. This CT examination was performed using dose optimization techniques as appropriate, variously including the following: *Automated exposure control *Adjustment of mA and/or kV according to patient size (this includes techniques or standardized protocols for targeted exams where dose is matched to indication/reason for exam; i.e. extremities or head) *Use of iterative reconstruction technique DLP: 514 mGy-cm FINDINGS: LUNG BASES: There is a 1 cm pleural-based nodule left lower lobe image 5/. . Previously it measured 6 mm LIVER, GALLBLADDER, AND BILIARY TREE: The liver is normal in size, shape, and attenuation. No focal hepatic lesion or biliary ductal dilatation is present. The gallbladder has been surgically removed. PANCREAS: Unremarkable. SPLEEN: Unremarkable. ADRENAL GLANDS: Unremarkable. KIDNEYS AND URETERS: The kidneys are normal in size, shape, and attenuation. No hydronephrosis, hydroureter, or calculi seen. No perinephric stranding. BLADDER: Unremarkable. GASTROINTESTINAL TRACT: There is diffuse colonic diverticuli, stool and gas seen without any distention or diverticulitis. The small bowel loops are normal caliber. Appendix is normal caliber. No inflammatory process, free air or free fluid seen. ABDOMINAL WALL: No significant hernia is appreciated. LYMPH NODES: Normal. VASCULAR: Unremarkable. PELVIC VISCERA: Unremarkable. OSSEOUS STRUCTURES: Mild degenerative disc changes with spondylosis L5-S1 disc level. No lytic or sclerotic process seen. CT/CT abdomen pelvis wo IV con IMPRESSION: 1. No acute intra-abdominal process seen. 2. Diffuse colonic diverticulosis without diverticulitis. 3. No radiopaque urolith or hydroureteronephrosis. Fleischner guidelines were followed.
--- NOTE | 2023-07-21 13:03 | ED_ITS ---
HPI - General Adult General Chief complaint: Extremity Injury, Lower Stated complaint: back pain Time Seen by Provider: 07/21/23 15:53 Source: patient Mode of arrival: ambulatory Limitations: no limitations History of Present Illness HPI narrative: 58-year-old female with history of kidney stones, chronic kidney disease, kidney stones, amyloidosis, lupus, and hypertension presents to ED for left flank pain left back pain worse on movement. Patient denies any recent trauma, urinary / bowel incontinence, nausea, vomiting, fever, chills, dysuria, or hematuria. Patient denies any IV drug user. Related Data Home Medications Medication Instructions Recorded Confirmed albuterol sulfate 90 mcg/actuation 2 puff inhalation Q4-6H PRN 04/10/20 04/28/23 aerosol inhaler (ProAir HFA) Shortness Of Breath allopurinol 100 mg tablet 100 mg PO DAILY 04/10/20 04/28/23 budesonide-formoterol HFA 160 2 puff inhalation BID 04/10/20 04/28/23 mcg-4.5 mcg/actuation aerosol inhaler (Symbicort) diltiazem HCl 240 mg 240 mg PO DAILY 04/10/20 04/28/23 capsule,extended release 24 hr hydralazine 100 mg tablet 100 mg PO BID 04/10/20 04/28/23 hydroxychloroquine 200 mg tablet 200 mg PO DAILY 04/10/20 04/28/23 (Plaquenil) quetiapine 25 mg tablet (Seroquel) 25 mg PO DAILY 04/10/20 04/28/23 tiotropium bromide 18 mcg capsule 1 cap inhalation DAILY 04/10/20 04/28/23 with inhalation device (Spiriva with HandiHaler) valsartan 320 mg tablet 320 mg PO DAILY 04/10/20 04/28/23 mirtazapine 15 mg tablet 5 mg PO BEDTIME 08/20/20 04/28/23 rosuvastatin 40 mg tablet 40 mg PO DAILY 08/20/20 04/28/23 acetaminophen 500 mg oral powder 1,000 mg PO Q6H PRN 07/10/23 packet (Tylenol Extra Strength) Previous Rx's Medication Instructions Recorded cyclobenzaprine 10 mg tablet 10 mg PO TID PRN muscle spasm #10 08/28/21 tabs sulfacetamide sodium 10 % eye 1 drp ophthalmic (eye) Q4H #15 mL 11/06/21 drops (Bleph-10) ondansetron 4 mg disintegrating 4 mg PO Q8H PRN nausea and 09/15/22 tablet vomiting #7 tabs tramadol 50 mg tablet 50 mg PO BID PRN pain #7 tabs 09/15/22 oxycodone 5 mg capsule 5 mg PO Q8H PRN pain 3 days #9 caps 07/21/23 prednisone 20 mg tablet 40 mg (2 x 20 mg) PO DAILY 5 days 07/21/23 #10 tabs Allergies Allergy/AdvReac Type Severity Reaction Status Date / Time aspirin [ASA] Allergy Intermediate RASH AND Verified 07/21/23 13:07 ITCHING ibuprofen Allergy Intermediate rash Verified 07/21/23 13:07 itching penicillin V Allergy Intermediate rash Verified 07/21/23 13:07 Review of Systems 2 Review of Systems: Left flank back pain. 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 Lupus (systemic lupus erythematosus) Osteoarthritis Other and unspecified hyperlipidemia Surgical History History of breast lump/mass excision Hx of lymph node biopsy Hx of cholecystectomy Family History Family History Mother Diabetes Arthritis Lupus Father Diabetes Sister Rheumatoid arthritis Social History Social History Household Members: None Alcohol intake: never Patient Tobacco Use Status: Never used Tobacco Advance Directives: No Advance Directives Information Provided: No service: No Current occupational status: retired Physical Exam ED Vital Signs: Vital Signs - 24 hr 07/21/23 13:05 Temperature 98.6 F Pulse Rate 106 H Respiratory Rate 18 Blood Pressure 178/111 H Pulse Oximetry 96 Oxygen Delivery Method Room Air BMI result Body Mass Index 32.3 Const General: cooperative, healthy appearing, comfortable, no acute distress, well developed, alert, awake and Physically active Orientation/consciousness: oriented to person, oriented to place, oriented to time and patient oriented x3 HENMT Head: Yes normal to inspection, Yes No palpable skull fracture present, Yes normocephalic, Yes atraumatic and No abrasion Eyes General: appearance normal, both eyes and all related structures Neck Neck: Yes normal visual inspection, Yes full ROM, Yes no lymphadenopathy, Yes no meningeal signs, Yes trachea midline, Yes supple, No anterior neck swelling and No tender Chest Chest palpation & inspection: normal inspection of the chest and normal palpation of entire chest wall Resp Effort & Inspection: normal respiratory effort and able to speak in complete sentences Auscultation: clear to auscultation bilaterally Cardio Jugular venous distension: no JVD Heart sounds: S1 normal heart sound present and S2 normal heart sound present GI Inspection: Yes normal to inspection Palpation (GI): Soft to palpation, not firm, nontender, no guarding and not rigid General: Yes CVA tenderness (left) Back/Spine/Pelvis Back: CVA tenderness (left) and back tenderness (lumbar spine. pain on range of motion.) Skin General skin exam: no rashes or lesions noted, elasticity normal and turgor normal Neuro General: oriented to person, oriented to place, oriented to time, patient oriented x3, gait normal, tone normal, moves all extremities, Normal light touch and pain sensation, no meningeal signs, no focal motor deficits, CN's II-XI intact bilaterally and normal sensation to monofilament Extrem General: Yes normal to inspection, Yes full ROM and Yes capillary refill normal Psych Appearance: grossly normal, well kempt and not disheveled Course Course Course Narrative: RME performed by Vivien Gandara PA-C. Patient is a 58 year old assigned female at presenting to the emergency department with left flank and back pain. Detailed physical exam and review of systems are deferred to the interlocking installer. Labs ordered. Patient placed back in the waiting room pending room availability and results. Medications Administered Discontinued Medications Generic Name Dose Route Start Last Admin Trade Name Freq PRN Reason Stop Dose Admin Acetaminophen 975 mg 07/21/23 17:13 07/21/23 17:24 Acetaminophen 325 Mg Tablet PO 07/21/23 17:14 975 mg ONCE ONE Administration Oxycodone HCl 5 mg 07/21/23 17:13 07/21/23 17:24 Oxycodone Hcl Immed Release 5 Mg Tablet PO 07/21/23 17:14 5 mg ONCE ONE Administration Prednisone 60 mg 07/21/23 17:13 07/21/23 17:24 Prednisone 20 Mg Tablet PO 07/21/23 17:14 60 mg ONCE ONE Administration Medical Decision Making Medical Decision Making [facility] Narrative: 58-year-old female history of CKD, lupus, amyloidosis, kidney stones and hypertension presents ED for left flank back pain that is worse on movement. Patient states Feels like spasm. Worse on movement. Patient denies any urinary symptoms or recent trauma. Labs were ordered UA negative for any infection. Due to history of kidney stones was sent for CT scan. CT scan shows lumbar radiculopathy. Differential Diagnosis Differential Diagnoses: The differential diagnosis associated with the presentation includes ( kidney stones, muscular back pain, flank pain, pyelonephritis, UTI) Admission/Observation Consideration of admission/observation: Escalation of care including admission/observation considered Lab Data [facility] Lab Attestation statement: I reviewed the patient's lab results. 07/21/23 13:24 07/21/23 13:24 Labs: Lab Results 07/21/23 07/21/23 Range/Units 13:24 16:09 WBC 8.6 (4.8-10.8) X10*3/uL RBC 4.05 L (4.20-5.50) X10*6/uL Hgb 12.1 (12.0-16.0) g/dl Hct 34.7 L (37.0-47.0) % MCV 85.7 (80.0-98.0) fL MCH 29.9 (27.0-33.0) pg MCHC 34.9 (31.0-35.0) g/dl RDW 13.9 (11.0-16.0) % Plt Count 282 (160-400) X10*3/uL MPV 10.9 (9.4-12.3) fL Immature Gran % (Auto) 0.3 (0.0-0.4) % Neut % (Auto) 71.3 (45-73) % Lymph % (Auto) 21.1 (20-40) % [place] % (Auto) 5.9 (2-11) % Eos % (Auto) 1.2 (0-4) % Baso % (Auto) 0.2 (0-2) % Lymph # (Auto) 1.8 (1.2-4.9) X10*3/uL [place] # (Auto) 0.5 (0.1-1.2) X10*3/uL Eos # (Auto) 0.1 (0.0-0.4) X10*3/uL Baso # (Auto) 0.0 (0.0-0.2) X10*3/uL Abs Immat Gran (auto) 0.03 (0.00-0.03) X10*3/uL Absolute Neuts (auto) 6.2 (2.0-8.3) x10*3/uL Absolute Nucleated RBC 0.000 (0.0-0.012) X10*3/uL Nucleated RBC % (auto) 0.0 (0.0-0.2) /100WBC Sodium 140 (135-145) mmol/L Potassium 4.2 (3.3-5.1) mmol/L Chloride 109 H (96-108) mmol/L Carbon Dioxide 24 (22-29) mmol/L Anion Gap 11 L (12-20) BUN 27 H (9-16) mg/dL Creatinine 0.85 (0.5-1.4) mg/dL Estim Creat Clear Calc 82.8 Estimated GFR > 60 Random Glucose 83 (60-115) mg/dL Calcium 9.4 (8.4-10.2) mg/dL Magnesium 2.2 (1.6-2.6) mg/dL Total Bilirubin 0.2 (0.0-1.0) mg/dL AST 15 (5-31) U/L ALT 12 (0-31) U/L Alkaline Phosphatase 62 (39-117) U/L Total Protein 8.6 H (6.5-8.0) g/dL Albumin 3.2 L (3.5-5.0) g/dL Urine Color Yellow Urine Appearance Clear Urine pH 5.5 (5.0-9.0) Ur Specific [place] 1.015 (1.005-1.025) Urine Protein 300 (3+) H (Neg-Trace) mg/dL Urine Glucose (UA) Negative (Negative) mg/dL Urine Ketones Negative (Negative) mg/dL Urine Blood Negative (Negative) Urine Nitrite Negative (Negative) Ur Leukocyte Esterase Negative (Negative) Urine RBC 0-2 (0-2) /HPF Urine WBC 0-5 (0-5) /HPF Ur Squamous Epith Cells 0-2 (0-2) /HPF Urine Bacteria None Seen (None Seen) Hyaline Casts 3-5 (0-2) /LPF COVID-19 (RADHA) Negative (Negative) COVID-19 Clin Com See Note Influenza Type A (ALBERTO) Negative (Negative) Influenza Type B (ALBERTO) Negative (Negative) Influenza A & B Note See Note Independent Interpretation I performed an independent interpretation of an: CT Scan External Record Review External record reviewed: Other (prior visits) Prescription Management I considered prescription management with: Pain Medication Discharge Plan Discharge Clinical Impression: Lumbar radiculopathy, Flank pain Patient Disposition: Home, Self-Care Instructions: Lumbar Radiculopathy (ED), Flank Pain (ED) Additional Instructions: return to the ED immediately for any urinary/ bowel incontinence, hematuria, dysuria, weakness paralysis of extremities, fever, chills, inability to walk, dizziness, weakness, abdominal pain, nausea, vomitting or any other concerning symptoms. Please follow-up with the primary care provider. Prescriptions: New oxycodone 5 mg capsule 5 mg PO Q8H PRN (Reason: pain) 3 Days Qty: 9 0RF Rx Instructions: Partial Fill upon patient request. prednisone 20 mg tablet 40 mg PO DAILY 5 Days Qty: 10 0RF No Action quetiapine [Seroquel] 25 mg Tablet 25 mg PO DAILY diltiazem HCl 240 mg capsule,extended release 24hr 240 mg PO DAILY allopurinol 100 mg Tablet 100 mg PO DAILY hydralazine 100 mg tablet 100 mg PO BID valsartan 320 mg tablet 320 mg PO DAILY hydroxychloroquine [Plaquenil] 200 mg Tablet 200 mg PO DAILY albuterol sulfate [ProAir HFA] 90 mcg/actuation Hfa Aerosol Inhaler 2 puff INHALATION Q4-6H PRN (Reason: Shortness Of Breath) tiotropium bromide [Spiriva with HandiHaler] 18 mcg Capsule, W/Inhalation Device 1 cap INHALATION DAILY budesonide-formoterol [Symbicort] 160-4.5 mcg/actuation HFA aerosol inhaler 2 puff INHALATION BID cyclobenzaprine 10 mg tablet 10 mg PO TID PRN (Reason: muscle spasm) Qty: 10 0RF sulfacetamide sodium [Bleph-10] 10 % drops 1 drp ophthalmic (eye) Q4H Qty: 15 0RF ondansetron 4 mg tablet,disintegrating 4 mg PO Q8H PRN (Reason: nausea and vomiting) Qty: 7 0RF tramadol 50 mg tablet 50 mg PO BID PRN (Reason: pain) Qty: 7 0RF rosuvastatin 40 mg tablet 40 mg PO DAILY mirtazapine 15 mg tablet 5 mg PO BEDTIME Tylenol Extra Strength 500 mg powder in packet 1,000 mg PO Q6H PRN Stand Alone Forms: Work/School Release Interventions: ED Discharge Assessment Last Done: 07/21/23 18:40 Discharge Date/Time: 07/21/23 18:40 Print Language: Faroese
[2023-07-21 13:05] VITALS: BP 178/111; PULSE 106; RESP 18; TEMP 37; O2SAT 96; BMI 32.3
[2023-07-21 13:31] LABS: MANUAL DIFF FLAG NO
[2023-07-21 13:44] LABS: Basophils Percent Auto 0.2 % (0-2); Eosinophils Absolute Auto 0.1 X10*3/uL (0.0-0.4); Eosinophils Percent Auto 1.2 % (0-4); Hematocrit 34.7 % (37.0-47.0); Hemoglobin 12.1 g/dl (12.0-16.0); Imm Gran Abs Auto 0.03 X10*3/uL (0.00-0.03); Imm Gran Pct Auto 0.3 % (0.0-0.4); Lymphocytes Absolute Auto 1.8 X10*3/uL (1.2-4.9); Lymphocytes Percent Auto 21.1 % (20-40); Mean Corpuscular HGB Conc 34.9 g/dl (31.0-35.0); Mean Corpuscular Hemoglobin 29.9 pg (27.0-33.0); Mean Corpuscular Volume 85.7 fL (80.0-98.0); Mean Platelet Volume 10.9 fL (9.4-12.3); Monocytes Absolute Auto 0.5 X10*3/uL (0.1-1.2); Monocytes Percent Auto 5.9 % (2-11); Neutrophils Absolute Auto 6.2 x10*3/uL (2.0-8.3); Neutrophils Percent Auto 71.3 % (45-73); Platelet Count 282 X10*3/uL (160-400); Red Blood Count 4.05 X10*6/uL (4.20-5.50); Red Cell Distribution Width 13.9 % (11.0-16.0); White Blood Count 8.6 X10*3/uL (4.8-10.8)
[2023-07-21 13:50] LABS: Alanine Aminotransferase 12 U/L (0-31); Albumin Level 3.2 g/dL (3.5-5.0); Alkaline Phosphatase 62 U/L (39-117); Anion Gap 11 (12-20); Aspartate Amino Transferase 15 U/L (5-31); Bilirubin Total 0.2 mg/dL (0.0-1.0); Blood Urea Nitrogen 27 mg/dL (9-16); Calcium 9.4 mg/dL (8.4-10.2); Carbon Dioxide 24 mmol/L (22-29); Chloride 109 mmol/L (96-108); Creatinine Clr Calc Pharmacy 82.8; Estimated Glomerular Filt Rate > 60; Glucose Random 83 mg/dL (60-115); Magnesium 2.2 mg/dL (1.6-2.6); Potassium 4.2 mmol/L (3.3-5.1); Sodium 140 mmol/L (135-145); Total Protein 8.6 g/dL (6.5-8.0)
[2023-07-21 13:53] LABS: COVID-19 Test Negative (Negative); IDNOW Serial# 08D9AD1C
[2023-07-21 13:59] LABS: IDNOW Serial# 152EDE1D; Influenza A Negative (Negative); Influenza B2 Negative (Negative)
[2023-07-21 16:20] LABS: Appearance Urine Clear; Color Urine Yellow; Glucose Urine UA Negative (Negative); Leukocyte Esterase Urine Negative (Negative); Nitrite Urine Negative (Negative); PH 5.5 (5.0-9.0); Specific Gravity - Urine 1.015 (1.005-1.025); UMIC TRIGGER UACC YES; Urine Blood Negative (Negative); Urine Ketones Negative (Negative); Urine Protein 300 (3+) mg/dL (Neg-Trace)
[2023-07-21 16:25] LABS: Bacteria Urine None Seen (None Seen); RBC Urine 0-2 /HPF (0-2); Squamous Epithelial Cell Urine 0-2 /HPF (0-2); WBC Urine 0-5 /HPF (0-5)
[2023-07-21] MEDS: Acetaminophen 325 MG TABLET 975 MG PO (17:24)
[2023-07-21] MEDS: oxyCODONE HCl Immed Release 5 MG TABLET PO (17:24)
[2023-07-21] MEDS: predniSONE 20 MG TABLET 60 MG PO (17:24)
--- NOTE | 2023-07-21 18:53 | PC.NURSE ---
pt left black and whit case containing air pods in exam room- pt contact via phone item at medical front desk coordinator
== END 2023-07-21 18:40 | disposition home or self-care (01) ==
PROVIDERS: Physician Assistant Medical; Emergency Provider Emergency Medicine Emergency Medical Services; PCP Internal Medicine
DX: M54.16 Radiculopathy, lumbar region (principal); R10.9 Unspecified abdominal pain; I10 Essential (primary) hypertension; M32.9 Systemic lupus erythematosus, unspecified; Z79.52 Long term (current) use of systemic steroids; Z11.52 Encounter for screening for COVID-19
CPT/HCPCS: 74176; 80053; 81001; 83735; 85025; 87502; 87635; 99284

== ENCOUNTER 2023-08-15 09:35 | Outpatient (REF) | payer MEDICARE, SELFPAY ==
--- NOTE | ~2023-08-15 | MM_ITS ---
EXAMINATION: MM SCREENING DIGITAL BREAST TOMOSYNTHESIS, BILATERAL CLINICAL INFORMATION: Screening. Asymptomatic. The patient is status post left breast surgery for benign disease. COMPARISON: Mammography: This study is compared with prior exams dating back to 2019. TECHNIQUE: Digital breast tomosynthesis is performed in both the craniocaudal and mediolateral oblique views along with computer-aided detection (CAD). Synthesized 2D images are generated from the tomosynthesis. FINDINGS: There are scattered areas of fibroglandular density (ACR BI-RADS breast composition Category b). There are no significant masses, abnormal calcifications, or other abnormalities. There are minor architectural changes in the upper outer quadrant of the left breast. There are a few, benign calcifications in association with a biopsy tissue marker in the superior aspect of the right breast and benign calcifications in the left breast. MM/MM tomosynthesis screening BI IMPRESSION: No mammographic evidence of malignancy. ASSESSMENT: BI-RADS BI-RADS 2 - Benign Findings RECOMMENDATION: Routine annual mammography screening. 1 year F/U This examination should not preclude the clinical evaluation of a suspicious palpable abnormality. This patient's information was entered into a reminder system with a target due date for their next mammogram.
== END 2023-08-15 09:36 | disposition home or self-care (01) ==
LOC: HO.MAMMO 09:35
PROVIDERS: PCP Internal Medicine; Visit Provider Internal Medicine
DX: Z12.31 Encounter for screening mammogram for malignant neoplasm of breast (principal)
CPT/HCPCS: 77063; 77067

== ENCOUNTER → 2023-08-15 10:15 | Outpatient (BNV) | payer MEDICARE, SELFPAY | PROVIDERS: PCP Internal Medicine; Visit Provider Radiology Diagnostic Radiology | DX: Z12.31 Encounter for screening mammogram for malignant neoplasm of breast (principal) | CPT/HCPCS: 77063; 77067 ==

== ENCOUNTER 2023-08-17 09:12 | Outpatient (REF) | payer MEDICARE, SELFPAY ==
[2023-08-17 10:12] LABS: MANUAL DIFF FLAG NO
[2023-08-17 10:46] LABS: Basophils Percent Auto 0.1 % (0-2); Eosinophils Absolute Auto 0.1 X10*3/uL (0.0-0.4); Eosinophils Percent Auto 1.4 % (0-4); Hematocrit 36.8 % (37.0-47.0); Hemoglobin 12.9 g/dl (12.0-16.0); Imm Gran Abs Auto 0.03 X10*3/uL (0.00-0.03); Imm Gran Pct Auto 0.4 % (0.0-0.4); Lymphocytes Absolute Auto 1.6 X10*3/uL (1.2-4.9); Lymphocytes Percent Auto 18.5 % (20-40); Mean Corpuscular HGB Conc 35.1 g/dl (31.0-35.0); Mean Corpuscular Volume 85.6 fL (80.0-98.0); Mean Platelet Volume 11.3 fL (9.4-12.3); Monocytes Absolute Auto 0.6 X10*3/uL (0.1-1.2); Monocytes Percent Auto 6.9 % (2-11); Neutrophils Absolute Auto 6.1 x10*3/uL (2.0-8.3); Neutrophils Percent Auto 72.7 % (45-73); Platelet Count 256 X10*3/uL (160-400); Red Cell Distribution Width 14.3 % (11.0-16.0); White Blood Count 8.4 X10*3/uL (4.8-10.8)
[2023-08-17 11:39] LABS: Erythrocyte Sedimentation Rate 74 MM/HR (0-20)
[2023-08-19 05:39] LABS: Complement C3 120 mg/dL (83-193)
[2023-08-21 15:08] LABS: Cyclic Citrullinated Peptide <16 UNITS
[2023-08-21 20:03] LABS: Anti DNA DS Antibody 1 IU/mL; Antibody to SS-A Antigen 6.2 POS AI (<1.0 NEG); Antibody to SS-B Antigen <1.0 NEG AI (<1.0 NEG)
== END 2023-08-17 09:13 | disposition home or self-care (01) ==
LOC: HO.LAB 09:12
PROVIDERS: PCP Internal Medicine; Referring Provider Internal Medicine; Visit Provider Hospitalist
DX: R91.1 Solitary pulmonary nodule (principal); M32.14 Glomerular disease in systemic lupus erythematosus
CPT/HCPCS: 36415; 85025; 85652; 86160; 86200; 86225; 86235; 99202

== ENCOUNTER 2023-08-17 09:12 | Outpatient (AMB) | payer MEDICARE, SELFPAY ==
--- NOTE | 2023-08-17 09:21 | MHC.OFFVIS ---
Intake Vital Signs 08/17/23 09:25 Height 5 ft 2 in Weight 180 lb BMI 32.9 BP 128/78 Blood Pressure Location Lt brachial Position Sitting Pulse 90 Pulse Source Pulse Oximeter Pulse Oximetry (%) 98 Oxygen Delivery Method Room Air Intake Visit Reasons: Abnormal CT scan Bag Machine Adjuster Required: No Allergies aspirin [ASA] Allergy (Intermediate, Verified 08/17/23 09:28) RASH AND ITCHING ibuprofen Allergy (Intermediate, Verified 08/17/23 09:28) rash itching penicillin V Allergy (Intermediate, Verified 08/17/23 09:28) rash HPI HPI Comments History of Present Illness Details 08/17/2023 this is a pulmonary evaluation. The patient is a 58-year-old woman with a known history of lupus known to have pulmonary nodules. Apparently back in January of [address] chest to follow-up nodules and was found to have a left lower lobe nodular density measuring more than a cm in size. Prior to that back in 2012 also did look at a CT scan where this area only demonstrated some degree of scarring and cystic changes. The patient ultimately developed back pain and was admitted to the hospital with that and underwent a CT scan of the abdomen in early July 2023 which I personally reviewed demonstrating that the nodular density still about a cm plus in size in the left lower lobe. It is irregular in appearance. The patient also complains of pleuritic chest discomfort. Moderate severity. She does have a history of lupus therefore pleuritis is in the differential. She had been followed by Rheumatology here but now she is set up to follow-up with Rheumatology at [facility] she has been on Plaquenil for that. The patient does state having some visual changes at time. I did recommend to mention that to her fire technician. If visual changes worsen she went to stop the Plaquenil. Based on the fact the patient has this increasing size pulmonary nodule I do believe the best option is to perform a PET scan to better address the metabolic activity of the nodule. If the nodule demonstrates hypermetabolic activity then I did recommend a biopsy of the nodule the meantime the patient will also undergo blood work to assess the inflammatory changes. 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 Left breast mass Osteoarthritis HTN (hypertension) Surgical History History of breast lump/mass excision Hx of lymph node biopsy Hx of cholecystectomy Family History Mother Diabetes Arthritis Lupus Father Diabetes Sister Rheumatoid arthritis Social History Household Members: None Alcohol intake: never Patient Tobacco Use Status: Never used Tobacco service: No Current occupational status: retired Review of Systems Const Denies fever(s) Eyes Reports change in vision ENT Reports no additional complaints Card Denies palpitations Resp Reports cough, Reports pain on inspiration and Reports pain with cough GI Reports no additional complaints Musc Reports as per HPI Skin/Breast Denies rash Endo Denies palpitations Jeremy/Lymph Denies lymphadenopathy Physical Exam Vital Signs: Last Vital Signs Pulse 90 08/17/23 09:25 BP 128/78 08/17/23 09:25 Pulse Ox 98 08/17/23 09:25 Oxygen Delivery Method Room Air 08/17/23 09:25 BMI result Body Mass Index 32.9 Const General: comfortable Nutritional Appearance: well nourished Orientation/consciousness: patient oriented x3 HEENT Head: No normal to inspection Mouth: moist mucous membranes Neck Neck: Yes supple and Yes no JVD Resp Auscultation: no rales, diminished lung sounds and rub present Cardio Jugular venous distension: no JVD Palpation: no palpable S3 and no palpable S4 Heart sounds: no rubs GI Palpation (GI): Soft to palpation and nontender Percussion: No Fluid wave present General: Yes no CVA tenderness Back/Spine/Pelvis Back: no CVA tenderness Skin General skin exam: no rashes or lesions noted Neuro General: patient oriented x3 Extrem Other: Tenderness along right malleoli General: Yes no pedal edema and No clubbing Assessment & Plan Assessment & Plan (1) Pulmonary nodule: Code(s): R91.1 - Solitary pulmonary nodule (2) Lupus (systemic lupus erythematosus): Code(s): M32.9 - Systemic lupus erythematosus, unspecified Qualifiers: Systemic lupus erythematosus type: unspecified Systemic lupus erythematosus organ involvement: glomerular disease Qualified Code(s): M32.14 - Glomerular disease in systemic lupus erythematosus Plan PET scan, if hypermetabolic will require a biopsy Bloodwork F/U after the PET scan Orders: Orders PET CT fusion skull to thigh Today R91.1 - Solitary pulmonary nodule Anti DNA DS Antibody Today R91.1 - Solitary pulmonary nodule Complement C4 Today R91.1 - Solitary pulmonary nodule Sjogren's Antibodies Today R91.1 - Solitary pulmonary nodule Cyclic Citrullinated Peptide Today R91.1 - Solitary pulmonary nodule Complement C3 Today R91.1 - Solitary pulmonary nodule Erythrocyte Sedimentation Rate Today R91.1 - Solitary pulmonary nodule Complete Blood Count Auto Diff Today R91.1 - Solitary pulmonary nodule Coding Level of Care Code New Pt Level 4 (44968) Diagnoses Pulmonary nodule R91.1 Systemic lupus erythematosus with glomerular disease, unspecified SLE type M32.14 Systemic lupus erythematosus type: unspecified Systemic lupus erythematosus organ involvement: glomerular disease Time Spent (min) 37
[2023-08-17 09:25] VITALS: BP 128/78; PULSE 90; O2SAT 98; BMI 32.9
== END 2023-08-17 10:05 | disposition home or self-care (01) ==
PROVIDERS: PCP Internal Medicine; Referring Provider Internal Medicine; Visit Provider Hospitalist
DX: R91.1 Solitary pulmonary nodule (principal); M32.14 Glomerular disease in systemic lupus erythematosus
CPT/HCPCS: 99204; 99214

== ENCOUNTER 2023-09-12 09:15 | Outpatient (REF) | payer MEDICARE, SELFPAY ==
--- NOTE | ~2023-09-12 | PE_ITS ---
EXAMINATION: FLUORINE-18 FDG PET/CT SCAN CLINICAL INFORMATION: Initial treatment management. Left lower lobar pulmonary nodule. TECHNIQUE: 53 minutes following the intravenous administration of 15.4 mCi of fluorine 18 FDG, images from the base of skull to mid-thigh were obtained using a combined PET/CT scanner with CT scan based attenuation correction. No intravenous contrast was administered. Transverse, coronal, sagittal, and volume reconstruction projections were obtained. The patient's blood glucose as determined by a finger stick, was 99 mg/dL immediately prior to injection. The radiotracer was injected intravenously through the left antecubital superficial vein, without any complications. Total CT exam dose-length product 772.97 mGy-cm. * These CT images were obtained using dose optimization techniques as appropriate, variously including the following: Automated exposure control * Adjustment of mA and/or kV according to patient size (this includes techniques or standardized protocols for targeted exams where dose is matched to indication/reason for exam; i.e. extremities or head) * Use of iterative reconstruction technique COMPARISON: CT scan of the chest done on 02/07/2023. FINDINGS: SUV max REFERENCE: Blood: 4.1 (66/223). Liver: 4.4 (96/223). HEAD AND NECK: Asymmetric increased tracer avidity associated with subtle soft tissue fullness is noted at the left oropharynx with SUV max of 6.7 (25/223), may represent secondary to head tilt/asymmetric positioning however, direct visualization and clinical correlation as appropriate is recommended for further clarification. Lobulated prominent tracer avid soft tissue is also noted within the roof of the nasopharynx with SUV max of 6.0 (14/223), likely represent hyperplastic lymphoid tissue/enlarged adenoid. Please correlate clinically and/or with a follow-up CT scan of the soft tissue neck with intravenous contrast. There are no tracer avid abnormal enlarged cervical lymphadenopathy present on either side. No large intracranial hemorrhage, acute territorial infarct or significant shift of midline structures. CHEST: Ports and Devices: None Lungs: No abnormal radiotracer uptake. Specifically, previous CT detected pleural-based somewhat linear pleuroparenchymal irregular soft tissue thickening at left lung base posterolaterally shows no tracer avidity. Pleura: Persistent stable nonspecific focal pleural thickening and overlying linear pleural parenchymal opacity at left lung base as described above. No evidence of any pleural effusion or tracer avid pleural disease. Lymph Nodes: No tracer-avid mediastinal, hilar or internal mammary or axillary lymphadenopathy. Mediastinum: There is no significant pericardial effusion/thickening. Breasts/Chest Wall: No abnormal radiotracer uptake. ABDOMEN/PELVIS: Liver/Biliary System: No focal tracer-avid liver lesion. The gallbladder is surgically absent. Pancreas: Normal.No evidence of pancreatic ductal dilatation. Spleen: No abnormal radiotracer uptake. No evidence of splenomegaly. Adrenal Glands: No abnormal radiotracer uptake. Kidneys: No hydronephrosis, hydroureter or renal calculi bilaterally. Bowel: There is no significant bowel dilatation to suggest obstruction. Colonic diverticulosis involving the descending and sigmoid colon without any CT features of superimposed acute diverticulitis. Small sliding hiatal hernia. Lymph Nodes: No tracer avid retroperitoneal, mesenteric or pelvic and/or groin lymphadenopathy. Pelvic Organs: The urinary bladder is underdistended. MUSCULOSKELETAL: Multilevel degenerative spondylosis. No suspicious tracer avid osseous disease. VASCULAR: Calcific atherosclerotic disease of the aorta including coronary artery calcifications. No evidence of aneurysm. THE SITE(S) OF MOST INTENSE FDG AVIDITY AND SUV MAX: Asymmetric tracer avidity at left-sided oropharynx associated with soft tissue fullness with SUV max of 6.7. PET/PET CT fusion skull to thigh IMPRESSION: Comparison is made to most recent prior CT of the chest done on 02/07/2023: 1. The index pleural-based linear irregular soft tissue thickening/opacity seen at left lung base laterally on the most recent prior CT scan of the chest done on 02/07/2023 is not tracer avid. Please note that some primary lung malignancies such as adenocarcinoma in situ, well-differentiated adenocarcinoma including mucinous adenocarcinoma, minimally invasive adenocarcinoma, and low-grade carcinoids may show minimal or no FDG avidity. 2. No evidence of tracer avid mediastinal, hilar or axillary or supraclavicular lymphadenopathy or suspicious extrathoracic disease to suspect metastasis. 3. Incidental note is made of asymmetric soft tissue fullness associated with tracer avidity involving the left-sided oropharynx with SUV max of 6.7 and prominent lobulated soft tissue associated with tracer avidity within the roof of the nasopharynx. The findings may represent normal variation including hyperplastic lymphoid tissue. However, clinical correlation as well as direct visualization and/or CT scan of the soft tissue neck with intravenous contrast as appropriate may be considered for further clarification. 4. Note is also made of small sliding hiatal hernia, colonic diverticulosis and multilevel degenerative spondylosis and atherosclerotic aortic disease including coronary artery calcifications.
== END 2023-09-12 09:16 | disposition home or self-care (01) ==
LOC: HO.PET 09:15
PROVIDERS: PCP Internal Medicine; Visit Provider Hospitalist
DX: Z13.89 Encounter for screening for other disorder (principal)

== ENCOUNTER 2023-10-30 09:28 | Outpatient (AMB) | payer MEDICARE, SELFPAY ==
--- NOTE | 2023-10-30 09:31 | MHC.OFFVIS ---
Vital Signs 10/30/23 09:32 Height 5 ft 2 in Weight 182 lb BMI 33.3 Respiration 93 H Pulse 93 Pulse Source Pulse Oximeter Pulse Oximetry (%) 97 Oxygen Delivery Method Room Air Intake Visit Reasons: PET Scan Follow Up Installation Drafter Required: No Allergies aspirin [ASA] Allergy (Intermediate, Verified 10/30/23 09:34) RASH AND ITCHING ibuprofen Allergy (Intermediate, Verified 10/30/23 09:34) rash itching penicillin V Allergy (Intermediate, Verified 10/30/23 09:34) rash HPI Comments Details: The patient is a 58-year-old woman with a known history of lupus known to have pulmonary nodules. Apparently back in January of [address] chest to follow-up nodules and was found to have a left lower lobe nodular density measuring more than a cm in size. Prior to that back in 2012 also did look at a CT scan where this area only demonstrated some degree of scarring and cystic changes. The patient ultimately developed back pain and was admitted to the hospital with that and underwent a CT scan of the abdomen in early July 2023 which I personally reviewed demonstrating that the nodular density still about a 1 cm plus in size in the left lower lobe. It is irregular in appearance. The patient also complains of pleuritic chest discomfort. Moderate severity. She does have a history of lupus therefore pleuritis is in the differential. She had been followed by Rheumatology here but now she is set up to follow-up with Rheumatology at [facility] she has been on Plaquenil for that. The patient does state having some visual changes at time. I did recommend to mention that to her filter press tender. If visual changes worsen she went to stop the Plaquenil. Based on the fact the patient has this increasing size pulmonary nodule I do believe the best option is to perform a PET scan to better address the metabolic activity of the nodule. If the nodule demonstrates hypermetabolic activity then I did recommend a biopsy of the nodule the meantime the patient will also undergo blood work to assess the inflammatory changes. 10/30/2023 the patient is here for a pulmonary follow-up visit. Overall the patient has been doing okay. She did have a PET scan to follow-up with the pulmonary nodule in the left lower lobe measuring about 1 cm. I personally reviewed the PET scan with the patient. The nodular density did not have any FDG activity which is reassuring. Although she did have some FDG activity around the larynx in the nasopharynx. The recommendation was to have direct visualization of the area. The patient does have a sore throat that comes and goes. She also appears to have a degree of Sjogren's. Will go ahead and refer her to ENT for laryngoscopy. In the meantime she does have significant daytime drowsiness. Her [place] score is elevated 12/24. She is taking a sleep aid. She does have documented snoring and apneic episodes. She does wake up with headaches. The patient needs to have a sleep study this time. Will request a home sleep study. We also reviewed her blood work. Her sedimentation rate is indeed elevated. Her Sjogren's antibodies were also positive suggesting the possibility of a mixed connective tissue disorder with lupus and also Sjogren's. Currently her left-sided pleuritic discomfort is better. Will follow-up in 3-4 months after his sleep study. 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 Left breast mass Osteoarthritis HTN (hypertension) Surgical History History of breast lump/mass excision Hx of lymph node biopsy Hx of cholecystectomy Family History Mother Diabetes Arthritis Lupus Father Diabetes Sister Rheumatoid arthritis Social History Household Members: None Alcohol intake: never Patient Tobacco Use Status: Never used Tobacco service: No Current occupational status: retired Review of Systems Const Reports daytime sleepiness, Reports difficulty sleeping, Denies fever(s), Reports headache(s) and Reports stops breathing during sleep Eyes Reports change in vision ENT Reports no additional complaints and Reports headache(s) Card Denies palpitations Resp Reports cough, Denies pain on inspiration and Denies pain with cough GI Reports dyspepsia and Reports heartburn Musc Reports as per HPI Skin/Breast Denies rash Neuro Reports headache(s) Endo Denies palpitations Jeremy/Lymph Denies lymphadenopathy Physical Exam Vital Signs: Last Vital Signs Pulse 93 10/30/23 09:32 Resp 93 H 10/30/23 09:32 Pulse Ox 97 10/30/23 09:32 Oxygen Delivery Method Room Air 10/30/23 09:32 BMI result Body Mass Index 33.3 Const General: comfortable Nutritional Appearance: well nourished Orientation/consciousness: patient oriented x3 HEENT Head: No normal to inspection Mouth: moist mucous membranes Neck Neck: Yes supple and Yes no JVD Resp Effort & Inspection: normal respiratory effort Auscultation: clear to auscultation bilaterally, no rales and No rub present Cardio Jugular venous distension: no JVD Palpation: no palpable S3 and no palpable S4 Heart sounds: no rubs GI Palpation (GI): Soft to palpation and nontender Percussion: No Fluid wave present General: Yes no CVA tenderness Back/Spine/Pelvis Back: no CVA tenderness Skin General skin exam: no rashes or lesions noted Neuro General: patient oriented x3 Extrem Other: Tenderness along right malleoli General: Yes no pedal edema and No clubbing Results Reviewed Results Reviewed: [place] [id number] PET Report Signed Patient: Yelena Mckinney MR#: [id number] : 1965 Acct:[id number] Age/Sex: 58 / F ADM Date: 09/12/23 Loc: HO.PET Attending Dr: Ulices Huddleston MD Ordering Physician: Ulices Huddleston MD Date of Service: 09/12/23 Procedure(s): PET CT fusion skull to thigh Accession Number(s): [id number] cc: Alberta Toney MD; Ulices Huddleston MD~ EXAMINATION: FLUORINE-18 FDG PET/CT SCAN CLINICAL INFORMATION: Initial treatment management. Left lower lobar pulmonary nodule. TECHNIQUE: 53 minutes following the intravenous administration of 15.4 mCi of fluorine 18 FDG, images from the base of skull to mid-thigh were obtained using a combined PET/CT scanner with CT scan based attenuation correction. No intravenous contrast was administered. Transverse, coronal, sagittal, and volume reconstruction projections were obtained. The patient's blood glucose as determined by a finger stick, was 99 mg/dL immediately prior to injection. The radiotracer was injected intravenously through the left antecubital superficial vein, without any complications. Total CT exam dose-length product 772.97 mGy-cm. * These CT images were obtained using dose optimization techniques as appropriate, variously including the following: Automated exposure control * Adjustment of mA and/or kV according to patient size (this includes techniques or standardized protocols for targeted exams where dose is matched to indication/reason for exam; i.e. extremities or head) * Use of iterative reconstruction technique COMPARISON: CT scan of the chest done on 02/07/2023. FINDINGS: SUV max REFERENCE: Blood: 4.1 (66/223). Liver: 4.4 (96/223). HEAD AND NECK: Asymmetric increased tracer avidity associated with subtle soft tissue fullness is noted at the left oropharynx with SUV max of 6.7 (25/223), may represent secondary to head tilt/asymmetric positioning however, direct visualization and clinical correlation as appropriate is recommended for further clarification. Lobulated prominent tracer avid soft tissue is also noted within the roof of the nasopharynx with SUV max of 6.0 (14/223), likely represent hyperplastic lymphoid tissue/enlarged adenoid. Please correlate clinically and/or with a follow-up CT scan of the soft tissue neck with intravenous contrast. There are no tracer avid abnormal enlarged cervical lymphadenopathy present on either side. No large intracranial hemorrhage, acute territorial infarct or significant shift of midline structures. CHEST: Ports and Devices: None Lungs: No abnormal radiotracer uptake. Specifically, previous CT detected pleural-based somewhat linear pleuroparenchymal irregular soft tissue thickening at left lung base posterolaterally shows no tracer avidity. Pleura: Persistent stable nonspecific focal pleural thickening and overlying linear pleural parenchymal opacity at left lung base as described above. No evidence of any pleural effusion or tracer avid pleural disease. Lymph Nodes: No tracer-avid mediastinal, hilar or internal mammary or axillary lymphadenopathy. Mediastinum: There is no significant pericardial effusion/thickening. Breasts/Chest Wall: No abnormal radiotracer uptake. ABDOMEN/PELVIS: Liver/Biliary System: No focal tracer-avid liver lesion. The gallbladder is surgically absent. Pancreas: Normal.No evidence of pancreatic ductal dilatation. Spleen: No abnormal radiotracer uptake. No evidence of splenomegaly. Adrenal Glands: No abnormal radiotracer uptake. Kidneys: No hydronephrosis, hydroureter or renal calculi bilaterally. Bowel: There is no significant bowel dilatation to suggest obstruction. Colonic diverticulosis involving the descending and sigmoid colon without any CT features of superimposed acute diverticulitis. Small sliding hiatal hernia. Lymph Nodes: No tracer avid retroperitoneal, mesenteric or pelvic and/or groin lymphadenopathy. Pelvic Organs: The urinary bladder is underdistended. MUSCULOSKELETAL: Multilevel degenerative spondylosis. No suspicious tracer avid osseous disease. VASCULAR: Calcific atherosclerotic disease of the aorta including coronary artery calcifications. No evidence of aneurysm. THE SITE(S) OF MOST INTENSE FDG AVIDITY AND SUV MAX: Asymmetric tracer avidity at left-sided oropharynx associated with soft tissue fullness with SUV max of 6.7. PET/PET CT fusion skull to thigh IMPRESSION: Comparison is made to most recent prior CT of the chest done on 02/07/2023: 1. The index pleural-based linear irregular soft tissue thickening/opacity seen at left lung base laterally on the most recent prior CT scan of the chest done on 02/07/2023 is not tracer avid. Please note that some primary lung malignancies such as adenocarcinoma in situ, well-differentiated adenocarcinoma including mucinous adenocarcinoma, minimally invasive adenocarcinoma, and low-grade carcinoids may show minimal or no FDG avidity. 2. No evidence of tracer avid mediastinal, hilar or axillary or supraclavicular lymphadenopathy or suspicious extrathoracic disease to suspect metastasis. 3. Incidental note is made of asymmetric soft tissue fullness associated with tracer avidity involving the left-sided oropharynx with SUV max of 6.7 and prominent lobulated soft tissue associated with tracer avidity within the roof of the nasopharynx. The findings may represent normal variation including hyperplastic lymphoid tissue. However, clinical correlation as well as direct visualization and/or CT scan of the soft tissue neck with intravenous contrast as appropriate may be considered for further clarification. 4. Note is also made of small sliding hiatal hernia, colonic diverticulosis and multilevel degenerative spondylosis and atherosclerotic aortic disease including coronary artery calcifications. Dictated By: Adi Post MD Signed By: <Electronically signed by Adi Post MD in OV> 09/14/23 0922 DD/ 1100 TD/TT: Crop Supervisor: JESSICA Assessment & Plan Assessment & Plan (1) Pulmonary nodule: Code(s): R91.1 - Solitary pulmonary nodule Category: Medical (2) Lupus (systemic lupus erythematosus): Code(s): M32.9 - Systemic lupus erythematosus, unspecified Category: Medical Qualifiers: Systemic lupus erythematosus organ involvement: glomerular disease Systemic lupus erythematosus type: unspecified Qualified Code(s): M32.14 - Glomerular disease in systemic lupus erythematosus (3) JUANITA (obstructive sleep apnea): Code(s): G47.33 - Obstructive sleep apnea (adult) (pediatric) Category: Medical (4) Sjogren's disease: Code(s): M35.00 - Sjogren syndrome, unspecified Category: Medical Qualifiers: Sjogren organ or system involvement: unspecified organ involvement Qualified Code(s): M35.00 - Sjogren syndrome, unspecified (5) Laryngitis: Comment: with abnormal PET Code(s): J04.0 - Acute laryngitis Category: Medical Plan Home sleep study repeat CT chest in 6-8 months reflux diet Consider GI eval if continue symptomatic ENT referral for the findings on the PET F/U 3 months Orders: Orders RT home sleep study Today G47.33 - Obstructive sleep apnea (adult) (pediatric) CT chest wo IV con 06/24/24 R91.1 - Solitary pulmonary nodule Coding Level of Care Code Est Pt Level 4 (30448) Diagnoses Pulmonary nodule R91.1 Systemic lupus erythematosus with glomerular disease, unspecified SLE type M32.14 Systemic lupus erythematosus organ involvement: glomerular disease Systemic lupus erythematosus type: unspecified JUANITA (obstructive sleep apnea) G47.33 Sjogren's syndrome, with unspecified organ involvement M35.00 Sjogren organ or system involvement: unspecified organ involvement Laryngitis J04.0
[2023-10-30 09:32] VITALS: PULSE 93; RESP 93; O2SAT 97; BMI 33.3
== END 2023-10-30 09:51 | disposition home or self-care (01) ==
PROVIDERS: PCP Internal Medicine; Visit Provider Hospitalist
DX: R91.1 Solitary pulmonary nodule (principal); M32.14 Glomerular disease in systemic lupus erythematosus; G47.33 Obstructive sleep apnea (adult) (pediatric); M35.00 Sjogren syndrome, unspecified; J04.0 Acute laryngitis
CPT/HCPCS: 99214

== ENCOUNTER → 2023-10-30 09:28 | Outpatient (BNVA) | payer MEDICARE, SELFPAY | PROVIDERS: PCP Internal Medicine; Visit Provider Hospitalist | DX: R91.1 Solitary pulmonary nodule (principal); M32.14 Glomerular disease in systemic lupus erythematosus; M35.00 Sjogren syndrome, unspecified; G47.33 Obstructive sleep apnea (adult) (pediatric); J04.0 Acute laryngitis | CPT/HCPCS: 99212 ==

== ENCOUNTER 2023-11-01 10:42 | Outpatient (REF) | payer MEDICARE, SELFPAY ==
[2023-11-01 11:14] LABS: MANUAL DIFF FLAG NO
[2023-11-01 12:31] LABS: Basophils Percent Auto 0.4 % (0-2); Eosinophils Absolute Auto 0.1 X10*3/uL (0.0-0.4); Eosinophils Percent Auto 1.3 % (0-4); Hematocrit 37.9 % (37.0-47.0); Hemoglobin 13.2 g/dl (12.0-16.0); Imm Gran Abs Auto 0.02 X10*3/uL (0.00-0.03); Imm Gran Pct Auto 0.2 % (0.0-0.4); Lymphocytes Absolute Auto 1.6 X10*3/uL (1.2-4.9); Lymphocytes Percent Auto 19.3 % (20-40); Mean Corpuscular HGB Conc 34.8 g/dl (31.0-35.0); Mean Corpuscular Hemoglobin 30.1 pg (27.0-33.0); Mean Corpuscular Volume 86.5 fL (80.0-98.0); Mean Platelet Volume 11.8 fL (9.4-12.3); Monocytes Absolute Auto 0.6 X10*3/uL (0.1-1.2); Monocytes Percent Auto 7.7 % (2-11); Neutrophils Absolute Auto 5.8 x10*3/uL (2.0-8.3); Neutrophils Percent Auto 71.1 % (45-73); Platelet Count 239 X10*3/uL (160-400); Red Blood Count 4.38 X10*6/uL (4.20-5.50); White Blood Count 8.2 X10*3/uL (4.8-10.8)
[2023-11-01 12:59] LABS: Alanine Aminotransferase 14 U/L (0-31); Albumin Level 3.1 g/dL (3.5-5.0); Alkaline Phosphatase 56 U/L (39-117); Anion Gap 13 (12-20); Aspartate Amino Transferase 17 U/L (5-31); Bilirubin Total 0.3 mg/dL (0.0-1.0); Blood Urea Nitrogen 23 mg/dL (9-16); Calcium 9.1 mg/dL (8.4-10.2); Carbon Dioxide 28 mmol/L (22-29); Chloride 106 mmol/L (96-108); Cholesterol 265 mg/dL (<200); Estimated Glomerular Filt Rate > 60; Glucose Random 82 mg/dL (60-115); HDL Cholesterol 43 mg/dL (>40); LDL Cholesterol Calculated 171 mg/dL (<100); Potassium 3.9 mmol/L (3.3-5.1); Sodium 143 mmol/L (135-145); Total Protein 7.6 g/dL (6.5-8.0); Triglycerides 257 mg/dL (<150)
== END 2023-11-01 10:43 | disposition home or self-care (01) ==
LOC: HO.LAB 10:42
PROVIDERS: PCP Internal Medicine; Visit Provider Internal Medicine
DX: D63.1 Anemia in chronic kidney disease (principal); E78.2 Mixed hyperlipidemia; M32.14 Glomerular disease in systemic lupus erythematosus; S93.431A Sprain of tibiofibular ligament of right ankle, initial encounter; X58.XXXA Exposure to other specified factors, initial encounter; Y93.9 Activity, unspecified; Y92.9 Unspecified place or not applicable; Y99.9 Unspecified external cause status
CPT/HCPCS: 36415; 80053; 80061; 85025

== ENCOUNTER 2023-11-16 15:56 | Outpatient (AMB) | payer MEDICARE, MEDICAID, SELFPAY ==
[2023-11-16 15:58] VITALS: BP 152/108; PULSE 105; O2SAT 95; BMI 34.4
--- NOTE | 2023-11-16 15:58 | HO.NEPHOV ---
Vital Signs 11/16/23 15:58 Height 5 ft 2 in Weight 188 lb BMI 34.4 BP 152/108 H Blood Pressure Location Lt brachial Position Sitting Pulse 105 H Pulse Source Pulse Oximeter Pulse Oximetry (%) 95 Oxygen Delivery Method Room Air Intake Visit Reasons: R/S 11/14/2023/ Confirmed Sprayer Automatic Spray Machine Required: No Accompanied by: Self / Same As Patient Allergies aspirin [ASA] Allergy (Intermediate, Verified 11/16/23 15:59) RASH AND ITCHING ibuprofen Allergy (Intermediate, Verified 11/16/23 15:59) rash itching penicillin V Allergy (Intermediate, Verified 11/16/23 15:59) rash Medication List - Last Reconciled 11/16/23 by Alex Calvo MD albuterol sulfate 90 mcg/actuation (ProAir HFA) 2 puffs inhalation Q4-6H PRN budesonide-formoterol 160-4.5 mcg/actuation (Symbicort) 2 puffs inhalation BID chlorthalidone 50 mg PO DAILY diclofenac sodium 75 mg PO BID diltiazem HCl CD 240 mg PO DAILY ezetimibe 10 mg PO DAILY metoprolol succinate ER 100 mg PO DAILY mirtazapine 15 mg PO BEDTIME ondansetron 4 mg PO Q8H PRN permethrin 5% 1 appl topical ONCE rosuvastatin 40 mg PO DAILY sertraline 100 mg PO DAILY telmisartan-hydrochlorothiazid 80-25 mg 1 tab PO DAILY HPI Comments Details: 58 yr old woman with SLE and Nephrotic range proteinuria with essentially normal renal function She was treated with Cytoxan/Prednisone more than 10 years ago and has been in remission Recent creatinine is 0.84 and urine pro: cr was about 3.2 gm Seen by Rheumatology and started on Plaquenil Not on Prednisone at this time Underwent repeat kidney biopsy in November 2022 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 20% global sclerosis Mild interstitial fibrosis and tubular atrophy. Recently had a fall and twisted her right ankle 11/16/23 Recently had a course of Prednisone c/o left sided chest pain when she coughs. Not related to exertion. 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 Left breast mass Osteoarthritis HTN (hypertension) Surgical History History of breast lump/mass excision Hx of lymph node biopsy Hx of cholecystectomy Family History Mother Diabetes Arthritis Lupus Father Diabetes Sister Rheumatoid arthritis Social History Household Members: None Alcohol intake: never Patient Tobacco Use Status: Never used Tobacco service: No Current occupational status: retired Physical Exam Vital Signs: Last Vital Signs Pulse 105 H 11/16/23 15:58 BP 152/108 H 11/16/23 15:58 Pulse Ox 95 11/16/23 15:58 Oxygen Delivery Method Room Air 11/16/23 15:58 BMI result Body Mass Index 34.4 Const General: comfortable Nutritional Appearance: well nourished Orientation/consciousness: patient oriented x3 HEENT Head: No normal to inspection Mouth: moist mucous membranes Neck Neck: Yes supple and Yes no JVD Resp Auscultation: clear to auscultation bilaterally, no rales and rub present Cardio Jugular venous distension: no JVD Palpation: no palpable S3 and no palpable S4 Heart sounds: no rubs GI Palpation (GI): Soft to palpation and nontender Percussion: No Fluid wave present General: Yes no CVA tenderness Back/Spine/Pelvis Back: no CVA tenderness Skin General skin exam: no rashes or lesions noted Neuro General: patient oriented x3 Extrem Other: Tenderness along right malleoli General: Yes no pedal edema and No clubbing Results Reviewed Nephrology Results: Hgb 13.2 g/dl (12.0-16.0) 11/01/23 WBC 8.2 X10*3/uL (4.8-10.8) 11/01/23 Plt Count 239 X10*3/uL (160-400) 11/01/23 Sodium 143 mmol/L (135-145) 11/01/23 Potassium 3.9 mmol/L (3.3-5.1) 11/01/23 Chloride 106 mmol/L (96-108) 11/01/23 Carbon Dioxide 28 mmol/L (22-29) 11/01/23 BUN 23 mg/dL (9-16) H 11/01/23 Creatinine 0.92 mg/dL (0.5-1.4) 11/01/23 Calcium 9.1 mg/dL (8.4-10.2) 11/01/23 Urine Protein 300 (3+) mg/dL (Neg-Trace) H 07/21/23 Assessment & Plan Assessment & Plan (1) Lupus (systemic lupus erythematosus): Code(s): M32.9 - Systemic lupus erythematosus, unspecified Category: Medical Qualifiers: Systemic lupus erythematosus type: unspecified Systemic lupus erythematosus organ involvement: glomerular disease Qualified Code(s): M32.14 - Glomerular disease in systemic lupus erythematosus (2) Essential hypertension: Code(s): I10 - Essential (primary) hypertension Category: Medical Plan Renal function is stable Still with nephrotic range proteinuria Continue Lupus management per rheumatology BP sub optimal Stop CHlorthalidone Start Aldactazide 25-25 one a day ( In addition to Telmisartan HCT) Check labs in 2 weeks Continue max dose of Telmisartan for renal protection Orders: Orders Basic Metabolic Panel Today I10 - Essential (primary) hypertension, M32.14 - Glomerular disease in systemic lupus erythematosus Medications: New spironolacton-hydrochlorothiaz 25-25 mg 1 tab PO DAILY 90 tabs 1RF Coding Level of Care Code Est Pt Level 4 (00511) Diagnoses Systemic lupus erythematosus with glomerular disease, unspecified SLE type M32.14 Systemic lupus erythematosus type: unspecified Systemic lupus erythematosus organ involvement: glomerular disease Essential hypertension I10
== END 2023-11-16 16:34 | disposition home or self-care (01) ==
PROVIDERS: PCP Internal Medicine; Visit Provider Internal Medicine Hypertension Specialist
DX: M32.14 Glomerular disease in systemic lupus erythematosus (principal); I10 Essential (primary) hypertension
CPT/HCPCS: 99214

== ENCOUNTER → 2023-11-16 15:56 | Outpatient (BNVA) | payer MEDICARE, SELFPAY | PROVIDERS: PCP Internal Medicine; Visit Provider Internal Medicine Hypertension Specialist | DX: M32.14 Glomerular disease in systemic lupus erythematosus (principal); I10 Essential (primary) hypertension | CPT/HCPCS: 99212 ==

== ENCOUNTER 2023-11-21 08:53 | Outpatient (REF) | payer MEDICARE, SELFPAY ==
--- NOTE | ~2023-11-21 | XR_ITS ---
EXAMINATION: XR LUMBOSACRAL SPINE CLINICAL INFORMATION: Pain mid and lower thoracic spine. COMPARISON: 05/10/2021. TECHNIQUE: 5 views of the lumbosacral spine. FINDINGS: Surgical clips right upper quadrant and left lower quadrant redemonstrated. A 5 mm rounded calcification redemonstrated in the left lower quadrant, just to the left of the L4 vertebral body. Mild S-shaped scoliosis of the imaged lower thoracic and lumbar spine. Bones are diffusely demineralized. Lumbar vertebral body heights are preserved. Degenerative changes in the imaged lower thoracic spine. Facet arthritis in the lower lumbar spine. Moderate lumbar spondylosis with loss of disc space height at L4-L5 and L5-S1. XR/XR lumbar spine 2-3V IMPRESSION: Moderate lumbar spondylosis with loss of disc space height at L4-L5 and L5-S1.
== END 2023-11-21 08:54 | disposition home or self-care (01) ==
LOC: HO.XRAY 08:53
PROVIDERS: PCP Internal Medicine; Visit Provider Internal Medicine
DX: M54.50 Low back pain, unspecified (principal)
CPT/HCPCS: 72100

== ENCOUNTER 2023-12-02 07:35 | Emergency (ER) | payer MEDICARE, MEDICAID, SELFPAY ==
--- NOTE | 2023-12-02 | ECG_ITS ---
Test Reason : TACHY,BACK PAIN Blood Pressure : / mmHG Vent. Rate : 109 BPM Atrial Rate : 109 BPM P-R Int : 140 ms QRS Dur : 082 ms QT Int : 330 ms P-R-T Axes : 044 -72 015 degrees QTc Int : 444 ms Sinus tachycardia Left axis deviation Abnormal ECG When compared with ECG of 15-SEP-2022 10:35, No significant changes seen Referred By: Generic ED Physician Electronically Signed By:LALO HANLEY
[2023-12-02 07:38] VITALS: BP 174/121; PULSE 118; RESP 20; TEMP 36.8; O2SAT 97; BMI 32.9
--- NOTE | 2023-12-02 07:53 | ED.BACK ---
HPI - Back Pain/Injury General Chief Complaint: Back Pain/Injury Stated Complaint: back pain Time Seen by Provider: 12/02/23 07:48 Source: patient Mode of arrival: ambulatory Limitations: no limitations History of Present Illness ED Provider: Dr. Jayden Fairbanks HPI Narrative: 58-year-old female with history of kidney stones, chronic kidney disease, kidney stones, amyloidosis, lupus, and hypertension who presents emergency department for evaluation of bilateral flank pain radiating to both hips x1 week. The patient does not recount any injury. She states the pain came on gradually but is been constant since onset. She describes the pain is a hard, pushing sensation in her lower back. She did see her PCP and states she was prescribed a medication that made her tachycardic and she believes that she should not take this medication secondary to her kidney disease. She can not tell me the name of the medicine home medications search did not reveal a new prescription. Patient also had lumbar spine plain films done on 11/21/2023-the reading is pending but on my interpretation of these films I do not see any acute compression fracture, she does have arthritic changes. Patient had a subjective fever last night but denied chills, chest pain, shortness of breath, nausea, vomiting. She states she did notice increased pain in her back when she urinated but no dysuria. She states that her urine was cloudy. Related Data Home Medications ?Medication ?Instructions ?Recorded ?Confirmed albuterol sulfate 90 mcg/actuation 2 puff inhalation Q4-6H PRN 04/10/20 11/16/23 aerosol inhaler (ProAir HFA) Shortness Of Breath budesonide-formoterol HFA 160 2 puff inhalation BID 04/10/20 11/16/23 mcg-4.5 mcg/actuation aerosol inhaler (Symbicort) diltiazem HCl 240 mg 240 mg PO DAILY 04/10/20 11/16/23 capsule,extended release 24 hr rosuvastatin 40 mg tablet 40 mg PO DAILY 08/20/20 11/16/23 telmisartan 80 1 tab PO DAILY 08/17/23 11/16/23 mg-hydrochlorothiazide 25 mg tablet diclofenac sodium 75 mg 75 mg PO BID 11/16/23 11/16/23 tablet,delayed release ezetimibe 10 mg tablet 10 mg PO DAILY 11/16/23 11/16/23 metoprolol succinate 100 mg 100 mg PO DAILY 11/16/23 11/16/23 tablet,extended release 24 hr mirtazapine 15 mg tablet 15 mg PO BEDTIME 11/16/23 11/16/23 permethrin 5 % topical cream 1 appl topical ONCE 11/16/23 11/16/23 sertraline 100 mg tablet 100 mg PO DAILY 11/16/23 11/16/23 Previous Rx's ?Medication ?Instructions ?Recorded ondansetron 4 mg disintegrating 4 mg PO Q8H PRN nausea and 09/15/22 tablet vomiting #7 tabs spironolactone 25 1 tab PO DAILY #90 tabs 11/16/23 mg-hydrochlorothiazide 25 mg tablet oxycodone 5 mg tablet 5 mg PO Q6H PRN pain #10 tabs 12/02/23 Allergies Allergy/AdvReac Type Severity Reaction Status Date / Time aspirin [ASA] Allergy Intermediate RASH AND Verified 12/02/23 07:38 ITCHING ibuprofen Allergy Intermediate rash Verified 12/02/23 07:38 itching penicillin V Allergy Intermediate rash Verified 12/02/23 07:38 Review of Systems Review of Systems: Yes all other systems are reviewed and are negative [facility] Past Medical History [facility] Narrative: Social history: Patient denies tobacco, alcohol and drug use. 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 Left breast mass Osteoarthritis HTN (hypertension) Surgical History History of breast lump/mass excision Hx of lymph node biopsy Hx of cholecystectomy Family History Family History Mother Diabetes Arthritis Lupus Father Diabetes Sister Rheumatoid arthritis Social History Social History Household Members: None Alcohol intake: never Patient Tobacco Use Status: Never used Tobacco Advance Directives: No Advance Directives Information Provided: Yes service: No Current occupational status: retired Physical Exam Vital Signs: Vital Signs: Last Vital Signs Temp 98.9 F 12/02/23 08:36 Pulse 103 H 12/02/23 08:36 Resp 18 12/02/23 08:36 BP 152/112 H 12/02/23 08:36 Pulse Ox 94 12/02/23 08:36 O2 Del Method Room Air 12/02/23 08:36 BMI result Body Mass Index 32.9 Vital signs revealed an elevated blood pressure of 174/121, elevated heart rate of 118. Exam: General: Awake, alert in no distress Head: Normocephalic, atraumatic EENT: PERRL, Lids normal, sclera normal, conjunctiva normal, nose normal , ears normal, throat without erythema or exudates Neck: Supple, no adenopathy Lung: breath sounds symmetric, no wheezing, rales or rhonchi Chest: symmetric movement, nontender Heart: regular rate and rhythm, normal S1, S2 no murmurs or rubs Abdomen: soft, non-tender, nondistended, normal bowel sounds Back: Tenderness palpation of her vertebrae diffusely, no point tenderness, bilateral paraspinal muscle tenderness with no spasm in the lumbar sacral area, negative straight leg raises bilaterally Extremities: no deformities, moves all extremities symmetrically Neuro: Awake, alert, oriented, normal speech, cranial nerves intact, moves all extremities symmetrically Psych: Pleasant, cooperative Medical Decision Making Medical Decision Making MDM Narrative: 58-year-old female with history of kidney stones, chronic kidney disease, kidney stones, amyloidosis, lupus, and hypertension who presents emergency department for evaluation of bilateral flank pain radiating to both hips x1 week, no reported injury, pain is worse with movement, patient took Tylenol with no relief. She did see her PCP and was prescribed a medication but does not know the name of this medicine, took 1 pill but stop secondary to tachycardic. Patient reported cloudy urine but no dysuria. Vital signs revealed an elevated blood pressure. Exam did reveal diffuse lumbar vertebral tenderness with no point tenderness, tenderness with the paraspinal muscles in lumbar area bilaterally with negative straight leg raises normal neurologic exam. Differential diagnosis: ?Includes but is not limited to musculoskeletal pain, vertebral compression fracture, degenerative disc disease, degenerative arthritis, urinary tract infection, renal colic, ureteral stone Following evaluation was ordered: EKG Course: 09:23 Patient's EKG consistent with sinus tachycardia with no acute abnormalities. My interpretation of the patient's lumbar x-rays done on 11/20/2023 was that there was no acute compression fracture or findings to explain her back pain. My interpretation patient's laboratory evaluation is as follows: Urinalysis was positive for protein and for blood. Microscopic revealed 0-2 RBCs, 0-5 WBCs, 3-5 squamous cells with no bacteria. No evidence for infection based on this result, elevated protein is related to her known kidney disease. This time I suspect that the patient's pain is due to musculoskeletal pain. The patient was advised to continue taking Tylenol and she was prescribed oxycodone 5 mg, 1 pill every 6 hours as needed for pain dispense 10 pills. She was given printed and verbal instructions and discharged home. Patient's blood pressure was elevated but she did not take her morning antihypertensive medications. Therefore the patient was given metoprolol ER 100 mg orally and diltiazem ER 240 mg orally. Admission/Observation Consideration of admission/observation: Escalation of care including admission/observation considered Lab Data MDM Lab Attestation statement: I reviewed the patient's lab results. Labs: Lab Results 12/02/23 Range/Units 08:30 Urine Color Yellow Urine Appearance Clear Urine pH 5.5 (5.0-9.0) Ur Specific [place] >= 1.030 H (1.005-1.025) Urine Protein 300 (3+) H (Neg-Trace) mg/dL Urine Glucose (UA) Negative (Negative) mg/dL Urine Ketones Negative (Negative) mg/dL Urine Blood Moderate (2+) H (Negative) Urine Nitrite Negative (Negative) Ur Leukocyte Esterase Negative (Negative) Urine RBC 0-2 (0-2) /HPF Urine WBC 0-5 (0-5) /HPF Ur Squamous Epith Cells 3-5 (0-2) /HPF Urine Bacteria None Seen (None Seen) Hyaline Casts 11-20 (0-2) /LPF Independent Interpretation I performed an independent interpretation of an: EKG and Plain X-Ray Interpretation: My interpretation patient's 12 EKG done at 00:44 hours is as follows: Sinus tachycardia with a rate of 109, normal CO interval, QRS duration QTC interval, no ST segment elevation, no ST segment depression, Q-waves in lead 3 and AVF, no significant T-wave abnormalities, no PACs, no PVCs. Compared to EKG dated 09/15/2022, the Q-waves are old, tachycardia is new. My interpretation of the patient's lumbar spine x-rays done on 11/21/2023 no lumbar sacral compression fractures noted by me, arthritic changes with no significant finding to explain her pain. Radiology reading is pending Independent Historian Clinical information obtained from an independent historian. History obtained from or confirmed by: Other (Daughter) Prescription Management I considered prescription management with: Pain Medication Chronic Conditions Patient?s care impacted by: Diabetes and Hypertension Discharge Plan Discharge Clinical Impression: Essential (primary) hypertension Acute lumbar back pain Qualifiers: Back pain laterality: bilateral Sciatica presence: without sciatica Qualified Code(s): M54.50 - Low back pain, unspecified Patient Disposition: Home, Self-Care Instructions: Acute Low Back Pain (ED) Additional Instructions: Your urine was negative for an infection. Your x-rays from 11/21/2023 were reviewed by me. I do not see any new findings to explain your pain. You do have some arthritis of your back but this is common as we get older. Take Tylenol (acetaminophen) 500 mg pills, 2 pills every 6 hours as needed for pain. For pain not relieved by Tylenol take oxycodone 5 mg pills, 1 pill every 6 hours as needed for pain. Do not drive or work while taking this medication since they can cause sleepiness. Oxycodone is a narcotic medication that can be addicting. If you are concerned about addiction you can ask the pharmacist for less pills or do not get this prescription filled. Apply a heating pad on low for 15 minutes 4 to 6 times a day to the areas of your back that hurt. Do this for 1 week and hopefully this will improve your pain Continue taking your other medications as prescribed by your providers Follow-up with your doctor in 2 days. Please return to the emergency department if your symptoms get worse or if you develop any symptoms that are concerning to you. Prescriptions: New oxycodone 5 mg tablet 5 mg PO Q6H PRN (Reason: pain) Qty: 10 0RF Rx Instructions: Patient may request partial refill; Partial Fill upon patient request. No Action diltiazem HCl 240 mg capsule,extended release 24hr 240 mg PO DAILY albuterol sulfate [ProAir HFA] 90 mcg/actuation Hfa Aerosol Inhaler 2 puff INHALATION Q4-6H PRN (Reason: Shortness Of Breath) budesonide-formoterol [Symbicort] 160-4.5 mcg/actuation HFA aerosol inhaler 2 puff INHALATION BID ondansetron 4 mg tablet,disintegrating 4 mg PO Q8H PRN (Reason: nausea and vomiting) Qty: 7 0RF rosuvastatin 40 mg tablet 40 mg PO DAILY mirtazapine 15 mg tablet 15 mg PO BEDTIME telmisartan-hydrochlorothiazid 80-25 mg tablet 1 tab PO DAILY permethrin 5 % cream 1 appl topical ONCE sertraline 100 mg tablet 100 mg PO DAILY metoprolol succinate 100 mg tablet extended release 24 hr 100 mg PO DAILY ezetimibe 10 mg tablet 10 mg PO DAILY diclofenac sodium 75 mg tablet,delayed release (DR/EC) 75 mg PO BID spironolacton-hydrochlorothiaz 25-25 mg tablet 1 tab PO DAILY Qty: 90 1RF Print Language: Luxembourgish
[2023-12-02 08:35] LABS: Appearance Urine Clear; Color Urine Yellow; Glucose Urine UA Negative (Negative); Leukocyte Esterase Urine Negative (Negative); Nitrite Urine Negative (Negative); PH 5.5 (5.0-9.0); Specific Gravity - Urine >= 1.030 (1.005-1.025); UMIC TRIGGER UACC YES; Urine Blood Moderate (2+) (Negative); Urine Ketones Negative (Negative); Urine Protein 300 (3+) mg/dL (Neg-Trace)
[2023-12-02 08:36] VITALS: BP 152/112; PULSE 103; RESP 18; TEMP 37.2; O2SAT 94
[2023-12-02 08:53] LABS: Bacteria Urine None Seen (None Seen); RBC Urine 0-2 /HPF (0-2); WBC Urine 0-5 /HPF (0-5)
[2023-12-02 10:01] VITALS: BP 152/112; PULSE 103
[2023-12-02] MEDS: dilTIAZem HCL CD 240 MG CAP.ER.DEG PO (10:01)
[2023-12-02] MEDS: Metoprolol Succinate ER 100 MG TAB.ER.24H PO (10:01)
[2023-12-02 10:03] VITALS: BP 162/109; PULSE 109; RESP 16; O2SAT 97
[2023-12-02 10:07] VITALS: BP 162/109; PULSE 109; RESP 16; TEMP -17.7; TEMP 0; O2SAT 97
== END 2023-12-02 10:08 | disposition home or self-care (01) ==
PROVIDERS: Emergency Provider Emergency Medicine Emergency Medical Services
DX: I10 Essential (primary) hypertension (principal); M54.50 Low back pain, unspecified; R00.0 Tachycardia, unspecified; E78.5 Hyperlipidemia, unspecified; L93.0 Discoid lupus erythematosus; Z79.52 Long term (current) use of systemic steroids; Z79.02 Long term (current) use of antithrombotics/antiplatelets; Z79.899 Other long term (current) drug therapy
CPT/HCPCS: 81001; 93005; 99283; 99284

== ENCOUNTER → 2023-12-02 07:44 | Outpatient (BNV) | payer MEDICARE, MEDICAID, SELFPAY | PROVIDERS: Emergency Provider Emergency Medicine Emergency Medical Services; Visit Provider Internal Medicine | DX: R00.0 Tachycardia, unspecified (principal); R94.31 Abnormal electrocardiogram [ECG] [EKG] | CPT/HCPCS: 93010 ==

== ENCOUNTER → 2023-12-06 09:41 | Outpatient (REF) | payer MEDICARE, MEDICAID, SELFPAY | LOC: HO.SL 09:41 | PROVIDERS: PCP Internal Medicine; Visit Provider Hospitalist | DX: G47.33 Obstructive sleep apnea (adult) (pediatric) (principal) | CPT/HCPCS: 95806 ==

== ENCOUNTER → 2023-12-06 09:57 | Outpatient (BNV) | payer MEDICARE, MEDICAID, SELFPAY | PROVIDERS: PCP Internal Medicine; Visit Provider Internal Medicine | DX: G47.33 Obstructive sleep apnea (adult) (pediatric) (principal) | CPT/HCPCS: 95806 ==

== ENCOUNTER 2023-12-11 11:59 | Outpatient (AMB) | payer MEDICARE, MEDICAID, SELFPAY ==
--- NOTE | 2023-12-11 12:01 | HO.NEPHOV ---
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: No Accompanied by: Self / Same As Patient Allergies aspirin [ASA] Allergy (Intermediate, Verified 12/11/23 12:04) RASH AND ITCHING ibuprofen Allergy (Intermediate, Verified 12/11/23 12:04) rash itching penicillin V Allergy (Intermediate, Verified 12/11/23 12:04) rash oxycodone Allergy (Unknown, Verified 12/11/23 12:07) Rash Medication List - Last Reconciled 12/11/23 by Alex Calvo MD acetaminophen (Tylenol Extra Strength) 500 mg PO Q6H PRN albuterol sulfate 90 mcg/actuation (ProAir HFA) 2 puffs inhalation Q4-6H PRN budesonide-formoterol 160-4.5 mcg/actuation (Symbicort) 2 puffs inhalation BID diclofenac sodium 75 mg PO BID diltiazem HCl CD 240 mg PO DAILY ezetimibe 10 mg PO DAILY metoprolol succinate ER 100 mg PO DAILY mirtazapine 15 mg PO BEDTIME ondansetron 4 mg PO Q8H PRN permethrin 5% 1 appl topical ONCE prednisone 5 mg PO DIRECTED rosuvastatin 40 mg PO DAILY sertraline 100 mg PO DAILY spironolacton-hydrochlorothiaz 25-25 mg 1 tab PO DAILY telmisartan-hydrochlorothiazid 80-25 mg 1 tab PO DAILY HPI Comments Details: 58 yr old woman with SLE and Nephrotic range proteinuria with essentially normal renal function She was treated with Cytoxan/Prednisone more than 10 years ago and has been in remission Recent creatinine is 0.84 and urine pro: cr was about 3.2 gm Seen by Rheumatology and started on Plaquenil Not on Prednisone at this time Underwent repeat kidney biopsy in November 2022 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 20% global sclerosis Mild interstitial fibrosis and tubular atrophy. Recently had a fall and twisted her right ankle 11/16/23 Recently had a course of Prednisone c/o left sided chest pain when she coughs. Not related to exertion. 12/11/23 Last week she was in the ER for upper chest pain and back pain. She was diagnosed with arthritis and sent home. She continues to have sharp pains when she coughs. No shortness of breath. No hemoptysis. 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 Left breast mass Osteoarthritis HTN (hypertension) Surgical History History of breast lump/mass excision Hx of lymph node biopsy Hx of cholecystectomy Family History Mother Diabetes Arthritis Lupus Father Diabetes Sister Rheumatoid arthritis Social History Household Members: None Alcohol intake: never Patient Tobacco Use Status: Never used Tobacco service: No Current occupational status: retired Review of Systems Const Denies fever(s) and Denies weight loss Resp Denies hemoptysis GI Denies abdominal pain, Denies diarrhea and Denies nausea Musc Denies back pain Neuro Denies focal weakness Physical Exam Vital Signs: Last Vital Signs Pulse 109 H 12/11/23 12:02 BP 122/98 H 12/11/23 12:02 Pulse Ox 97 12/11/23 12:02 Oxygen Delivery Method Room Air 12/11/23 12:02 BMI result Body Mass Index 33.3 Const General: comfortable; No acute distress Orientation/consciousness: patient oriented x3 Eyes General: appearance normal, both eyes and all related structures Visual Roa: normal visual roa by confrontation Neck Neck: Yes supple and Yes no JVD Resp Effort & Inspection: normal respiratory effort and respiratory effort not decreased Auscultation: rhonchi Cardio Palpation: no palpable S3 and no palpable S4 Heart sounds: no rubs GI Inspection: Yes normal to inspection Palpation (GI): Soft to palpation Percussion: Yes normal to percussion Auscultation: normal bowel sounds General: Yes no CVA tenderness Back/Spine/Pelvis Back: no CVA tenderness Skin General skin exam: no petechiae and no purpura Neuro General: patient oriented x3 and no focal motor deficits Extrem General: No clubbing and No edema Results Reviewed Nephrology Results: Hgb 13.2 g/dl (12.0-16.0) 11/01/23 WBC 8.2 X10*3/uL (4.8-10.8) 11/01/23 Plt Count 239 X10*3/uL (160-400) 11/01/23 Sodium 143 mmol/L (135-145) 11/01/23 Potassium 3.9 mmol/L (3.3-5.1) 11/01/23 Chloride 106 mmol/L (96-108) 11/01/23 Carbon Dioxide 28 mmol/L (22-29) 11/01/23 BUN 23 mg/dL (9-16) H 11/01/23 Creatinine 0.92 mg/dL (0.5-1.4) 11/01/23 Calcium 9.1 mg/dL (8.4-10.2) 11/01/23 Urine Protein 300 (3+) mg/dL (Neg-Trace) H 12/02/23 Assessment & Plan Assessment & Plan (1) Lupus (systemic lupus erythematosus): Code(s): M32.9 - Systemic lupus erythematosus, unspecified Category: Medical Qualifiers: Systemic lupus erythematosus organ involvement: glomerular disease Systemic lupus erythematosus type: unspecified Qualified Code(s): M32.14 - Glomerular disease in systemic lupus erythematosus (2) Essential hypertension: Code(s): I10 - Essential (primary) hypertension Category: Medical Plan Renal function is stable Still with nephrotic range proteinuria Continue Lupus management per rheumatology BP better controlled after stopping CHlorthalidone Keep Aldactazide 25-25 one a day ( In addition to Telmisartan HCT) Continue max dose of Telmisartan for renal protection Faye continues to have nonspecific sharp pains in her upper chest when she coughs. Differential diagnosis would include pleurisy. I will give her a short course of prednisone to see if any improvement. Medications: New prednisone two tabs a day for two days and then one tab a day 5 mg PO DIRECTED 7 tabs 0RF Coding Level of Care Code Est Pt Level 4 (47992) Diagnoses Systemic lupus erythematosus with glomerular disease, unspecified SLE type M32.14 Systemic lupus erythematosus organ involvement: glomerular disease Systemic lupus erythematosus type: unspecified Essential hypertension I10
[2023-12-11 12:02] VITALS: BP 122/98; PULSE 109; O2SAT 97; BMI 33.3
== END 2023-12-11 12:18 | disposition home or self-care (01) ==
PROVIDERS: PCP Internal Medicine; Visit Provider Internal Medicine Hypertension Specialist
DX: M32.14 Glomerular disease in systemic lupus erythematosus (principal); I10 Essential (primary) hypertension
CPT/HCPCS: 99214

== ENCOUNTER → 2023-12-11 11:59 | Outpatient (BNVA) | payer MEDICARE, SELFPAY | PROVIDERS: PCP Internal Medicine; Visit Provider Internal Medicine Hypertension Specialist | DX: M32.14 Glomerular disease in systemic lupus erythematosus (principal); I10 Essential (primary) hypertension | CPT/HCPCS: 99212 ==

== ENCOUNTER 2024-01-09 09:08 | Outpatient (AMB) | payer MEDICARE, MEDICAID, SELFPAY ==
[2024-01-09 09:36] VITALS: BP 154/92; PULSE 101; O2SAT 96; BMI 33.8
--- NOTE | 2024-01-09 09:36 | HO.NEPHOV_ITS ---
Vital Signs 01/09/24 09:36 01/09/24 09:58 Height 5 ft 2 in Weight 185 lb BMI 33.8 BP 154/92 H 140/90 H Blood Pressure Location Rt brachial Rt brachial Position Sitting Sitting Pulse 101 H Pulse Source Pulse Oximeter Pulse Oximetry (%) 96 Oxygen Delivery Method Room Air Intake Visit Reasons: 1 mon follow up/ Conf Cushion Former Required: No Accompanied by: Self / Same As Patient Allergies aspirin [ASA] Allergy (Intermediate, Verified 01/09/24 09:38) RASH AND ITCHING ibuprofen Allergy (Intermediate, Verified 01/09/24 09:38) rash itching penicillin V Allergy (Intermediate, Verified 01/09/24 09:38) rash oxycodone Allergy (Unknown, Verified 01/09/24 09:38) Rash HPI Comments Details: 58 yr old woman with SLE and Nephrotic range proteinuria with essentially normal renal function She was treated with Cytoxan/Prednisone more than 10 years ago and has been in remission Recent creatinine is 0.84 and urine pro: cr was about 3.2 gm Seen by Rheumatology and started on Plaquenil Not on Prednisone at this time Underwent repeat kidney biopsy in November 2022 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 20% global sclerosis Mild interstitial fibrosis and tubular atrophy. Recently had a fall and twisted her right ankle 11/16/23 Recently had a course of Prednisone c/o left sided chest pain when she coughs. Not related to exertion. 12/11/23 Last week she was in the ER for upper chest pain and back pain. She was diagnosed with arthritis and sent home. She continues to have sharp pains when she coughs. No shortness of breath. No hemoptysis. 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 systemic steroid user Left breast mass Osteoarthritis HTN (hypertension) Surgical History History of breast lump/mass excision Hx of lymph node biopsy Hx of cholecystectomy Family History Mother Diabetes Arthritis Lupus Father Diabetes Sister Rheumatoid arthritis Social History Household Members: None Alcohol intake: never Patient Tobacco Use Status: Never used Tobacco service: No Current occupational status: retired Physical Exam Vital Signs: Last Vital Signs Pulse 101 H 01/09/24 09:36 BP 154/92 H 01/09/24 09:36 Pulse Ox 96 01/09/24 09:36 Oxygen Delivery Method Room Air 01/09/24 09:36 BMI result Body Mass Index 33.8 Const General: comfortable; No acute distress Orientation/consciousness: patient oriented x3 Eyes General: appearance normal, both eyes and all related structures Visual Roa: normal visual roa by confrontation Neck Neck: Yes supple and Yes no JVD Resp Effort & Inspection: normal respiratory effort and respiratory effort not decreased Auscultation: rhonchi Cardio Palpation: no palpable S3 and no palpable S4 Heart sounds: no rubs GI Inspection: Yes normal to inspection Palpation (GI): Soft to palpation Percussion: Yes normal to percussion Auscultation: normal bowel sounds General: Yes no CVA tenderness Back/Spine/Pelvis Back: no CVA tenderness Skin General skin exam: no petechiae and no purpura Neuro General: patient oriented x3 and no focal motor deficits Extrem General: No clubbing and No edema Results Reviewed Nephrology Results: Hgb 13.2 g/dl (12.0-16.0) 11/01/23 WBC 8.2 X10*3/uL (4.8-10.8) 11/01/23 Plt Count 239 X10*3/uL (160-400) 11/01/23 Sodium 143 mmol/L (135-145) 11/01/23 Potassium 3.9 mmol/L (3.3-5.1) 11/01/23 Chloride 106 mmol/L (96-108) 11/01/23 Carbon Dioxide 28 mmol/L (22-29) 11/01/23 BUN 23 mg/dL (9-16) H 11/01/23 Creatinine 0.92 mg/dL (0.5-1.4) 11/01/23 Calcium 9.1 mg/dL (8.4-10.2) 11/01/23 Urine Protein 300 (3+) mg/dL (Neg-Trace) H 12/02/23 Assessment & Plan Assessment & Plan (1) Lupus (systemic lupus erythematosus): Code(s): M32.9 - Systemic lupus erythematosus, unspecified Category: Medical Qualifiers: Systemic lupus erythematosus organ involvement: glomerular disease Systemic lupus erythematosus type: unspecified Qualified Code(s): M32.14 - Glomerular disease in systemic lupus erythematosus (2) Essential hypertension: Code(s): I10 - Essential (primary) hypertension Category: Medical Plan Renal function is stable Still with nephrotic range proteinuria Continue Lupus management per rheumatology BP as been controlled after stopping CHlorthalidone Keep Aldactazide 25-25 one a day ( In addition to Telmisartan HCT) Sub optimal today because she has not taken her meds today . ( She was mary lopez and forgot to take them!) Discussed complaince Continue max dose of Telmisartan for renal protection Faye continues to have nonspecific sharp pains in her upper chest when she coughs. Responded wto a short course of prednisone and has recurred again. Encouraged to follow up with PCP Needs f/u with Rhem for Lupus Orders: Orders Comprehensive Met. Panel 3 Months - Glomerular disease in systemic lupus erythematosus Complete Blood Count Auto Diff 3 Months - Glomerular disease in systemic lupus erythematosus Total Protein Urine Random 3 Months 14 - Glomerular disease in systemic lupus erythematosus Creatinine Urine 3 Months .14 - Glomerular disease in systemic lupus erythematosus Coding Level of Care Code Est Pt Level 3 (66695) Diagnoses Systemic lupus erythematosus with glomerular disease, unspecified SLE type M32.14 Systemic lupus erythematosus organ involvement: glomerular disease Systemic lupus erythematosus type: unspecified Essential hypertension I10
[2024-01-09 09:58] VITALS: BP 140/90
== END 2024-01-09 09:55 | disposition home or self-care (01) ==
PROVIDERS: PCP Internal Medicine; Visit Provider Internal Medicine Hypertension Specialist
DX: M32.14 Glomerular disease in systemic lupus erythematosus (principal); I10 Essential (primary) hypertension
CPT/HCPCS: 99213

== ENCOUNTER → 2024-01-09 09:08 | Outpatient (BNVA) | payer MEDICARE, SELFPAY | PROVIDERS: PCP Internal Medicine; Visit Provider Internal Medicine Hypertension Specialist | DX: M32.14 Glomerular disease in systemic lupus erythematosus (principal); I10 Essential (primary) hypertension | CPT/HCPCS: 99212 ==

== ENCOUNTER 2024-01-11 07:24 | Emergency (ER) | payer MEDICARE, SELFPAY ==
[2024-01-11 07:33] VITALS: BP 174/97; PULSE 101; RESP 18; TEMP 36.8; O2SAT 97; BMI 26.6
--- NOTE | 2024-01-11 07:54 | ED_ITS ---
HPI - Neck Pain/Injury General Chief Complaint: Neck Pain/Injury Stated Complaint: Neck pain radiating to L ear Time Seen by Provider: 01/11/24 07:54 Source: patient Mode of arrival: ambulatory Limitations: no limitations History of Present Illness ED Provider: Audra Keys PA-C HPI Narrative: 58-year-old female with a history of Sjogren's disease, JUANITA, lupus, IBS, HTN, HLD who presents to the ER for evaluation of right-sided neck pain for the last 3 days. Patient states she woke up with right-sided neck pain that radiates to her upper back. It is worse with movement of the head to the right. She had some tingling in her hand this morning that has since resolved. She reports this is chronic and occurs every morning. She denies any current pain in her right upper extremity. No weakness. She has been taking Tylenol with minimal relief in the pain. MD complaint: neck pain Onset (ago): day(s) Place: home Radiation: right lateral Severity: moderate and constant Quality: sharp, aching and spasming Duration: constant Relieving factors: remaining still Exacerbating factors: movement of neck Associated symptoms: other (Radiation of the pain to the right ear) Treatments prior to arrival: acetaminophen Related Data Home Medications ?Medication ?Instructions ?Recorded ?Confirmed albuterol sulfate 90 mcg/actuation 2 puff inhalation Q4-6H PRN 04/10/20 12/11/23 aerosol inhaler (ProAir HFA) Shortness Of Breath budesonide-formoterol HFA 160 2 puff inhalation BID 04/10/20 12/11/23 mcg-4.5 mcg/actuation aerosol inhaler (Symbicort) diltiazem HCl 240 mg 240 mg PO DAILY 04/10/20 12/11/23 capsule,extended release 24 hr rosuvastatin 40 mg tablet 40 mg PO DAILY 08/20/20 12/11/23 telmisartan 80 1 tab PO DAILY 08/17/23 12/11/23 mg-hydrochlorothiazide 25 mg tablet diclofenac sodium 75 mg 75 mg PO BID 11/16/23 12/11/23 tablet,delayed release ezetimibe 10 mg tablet 10 mg PO DAILY 11/16/23 12/11/23 metoprolol succinate 100 mg 100 mg PO DAILY 11/16/23 12/11/23 tablet,extended release 24 hr mirtazapine 15 mg tablet 15 mg PO BEDTIME 11/16/23 12/11/23 permethrin 5 % topical cream 1 appl topical ONCE 11/16/23 12/11/23 sertraline 100 mg tablet 100 mg PO DAILY 11/16/23 12/11/23 acetaminophen 500 mg oral powder 500 mg PO Q6H PRN 12/11/23 12/11/23 packet (Tylenol Extra Strength) Previous Rx's ?Medication ?Instructions ?Recorded ondansetron 4 mg disintegrating 4 mg PO Q8H PRN nausea and 09/15/22 tablet vomiting #7 tabs spironolactone 25 1 tab PO DAILY #90 tabs 11/16/23 mg-hydrochlorothiazide 25 mg tablet lidocaine 5 % topical patch 1 patch topical DAILY #15 ea 01/11/24 methocarbamol 750 mg tablet 750 mg PO Q8H PRN muscle spasm #14 01/11/24 tabs Allergies Allergy/AdvReac Type Severity Reaction Status Date / Time aspirin [ASA] Allergy Intermediate RASH AND Verified 01/11/24 07:37 ITCHING ibuprofen Allergy Intermediate rash Verified 01/11/24 07:37 itching penicillin V Allergy Intermediate rash Verified 01/11/24 07:37 oxycodone Allergy Unknown Rash Verified 01/11/24 07:37 Review of Systems Review of Systems: Yes all other systems are reviewed and are negative FOR[facility]LY [facility], [facility] Past Medical History Medical History (Updated 01/11/24 @ 08:07 by ALYCE Cast) Sjogren's disease Pulmonary nodule Pulmonary nodule 1 cm or greater in diameter Lupus (systemic lupus erythematosus) Other and unspecified hyperlipidemia Essential hypertension IBS (irritable bowel syndrome) correction systemic steroid user Left breast mass Osteoarthritis HTN (hypertension) Surgical History History of breast lump/mass excision Hx of lymph node biopsy Hx of cholecystectomy Family History Family History Mother Diabetes Arthritis Lupus Father Diabetes Sister Rheumatoid arthritis Social History Social History Household Members: None Alcohol intake: never Patient Tobacco Use Status: Never used Tobacco Advance Directives: No Advance Directives Information Provided: Yes Do you have a plan to hurt others: No Plan service: No Current occupational status: retired Physical Exam Vital Signs: Vital Signs: Last Vital Signs Temp 98.8 F 01/11/24 08:21 Pulse 98 01/11/24 08:21 Resp 16 01/11/24 08:21 BP 139/102 H 01/11/24 08:21 Pulse Ox 95 01/11/24 08:21 O2 Del Method Room Air 01/11/24 08:21 BMI result Body Mass Index 26.6 Appearance: Alert. Oriented X3. No acute distress. Head: normocephalic, atraumatic. Eyes: Pupils equal, round and reactive to light. ENT: Pharynx normal. No tonsillar swelling or exudate. Normal tympanic membranes bilaterally. No mastoid tenderness Neck: Normal inspection. No C-spine tenderness, no step-off deformity. There is soft tissue tenderness of the upper trapezius and of the occiput and palpable spasm of the upper back CVS: Normal heart rate and rhythm. Pulses normal. Respiratory: No respiratory distress. Breath sounds normal. Skin: Skin warm and dry. Normal skin color. Normal skin turgor. No rashes. Extremities: No lower extremity edema. No joint swelling. Neuro/psych: Oriented X 3. No motor deficit. No sensory deficit. CN II-XII intact. Normal speech and cognition. Strength is equal and symmetrical throughout Medical Decision Making Medical Decision Making MDM Narrative: 58-year-old female presents to the ER for evaluation of right-sided neck pain for the last couple of days. No trauma. She has soft tissue tenderness and palpable spasm on examination. No role for emergent imaging today. She has history of CKD and can not take NSAIDs. Will continue Tylenol and add a muscle relaxer and Lidoderm patches. We discussed range of motion, using cool or warm compresses, gentle massage and following up with PCP. She is stable for discharge home with outpatient follow-up. Patient agrees with plan all questions were answered Differential Diagnosis Differential Diagnoses: The differential diagnosis associated with the presentation includes Cervical radiculopathy, spondylosis, muscle spasm, muscle strain, low clinical suspicion for meningitis, cervical fracture or subluxation Independent Historian Clinical information obtained from an independent historian. History obtained from or confirmed by: Friend External Record Review External record reviewed: Prior outpatient radiology Tests considered The following testing was considered but not selected: Considered x-ray of the cervical spine however not emergently needed today, exam is most consistent with muscle strain and spasm Prescription Management I considered prescription management with: Pain Medication Chronic Conditions Patient?s care impacted by: Hypertension and Other (Lupus and Sjogren's,) Critical Care Time Critical Care Time Critical Care Time: No Discharge Plan Discharge Clinical Impression: Strain of neck muscle Qualifiers: Encounter type: initial encounter Qualified Code(s): S16.1XXA - Strain of muscle, fascia and tendon at neck level, initial encounter Patient Disposition: Home, Self-Care Instructions: Cervical Strain (DC) Additional Instructions: Your pain is most likely due to muscle strain and spasm. Work on gentle range of motion of your head and neck, along with gentle massage. Use ice several times per day for 20 minutes at a time for the next 48 hours and then change to heat. Take medications as prescribed to help with pain and discomfort. Follow up with your Primary Care Doctor this week. You may benefit from physical therapy. If you develop new or worsening symptoms call 911 or come back to the ER for further evaluation. Prescriptions: New lidocaine 5 % adhesive patch,medicated 1 patch topical DAILY Qty: 15 0RF Rx Instructions: leave on most painful area for up to 12 hrs methocarbamol 750 mg tablet 750 mg PO Q8H PRN (Reason: muscle spasm) Qty: 14 0RF No Action diltiazem HCl 240 mg capsule,extended release 24hr 240 mg PO DAILY albuterol sulfate [ProAir HFA] 90 mcg/actuation Hfa Aerosol Inhaler 2 puff INHALATION Q4-6H PRN (Reason: Shortness Of Breath) budesonide-formoterol [Symbicort] 160-4.5 mcg/actuation HFA aerosol inhaler 2 puff INHALATION BID ondansetron 4 mg tablet,disintegrating 4 mg PO Q8H PRN (Reason: nausea and vomiting) Qty: 7 0RF rosuvastatin 40 mg tablet 40 mg PO DAILY mirtazapine 15 mg tablet 15 mg PO BEDTIME telmisartan-hydrochlorothiazid 80-25 mg tablet 1 tab PO DAILY permethrin 5 % cream 1 appl topical ONCE sertraline 100 mg tablet 100 mg PO DAILY metoprolol succinate 100 mg tablet extended release 24 hr 100 mg PO DAILY ezetimibe 10 mg tablet 10 mg PO DAILY diclofenac sodium 75 mg tablet,delayed release (DR/EC) 75 mg PO BID spironolacton-hydrochlorothiaz 25-25 mg tablet 1 tab PO DAILY Qty: 90 1RF Tylenol Extra Strength 500 mg powder in packet 500 mg PO Q6H PRN Referrals: Alberta Toney MD [Primary Care Provider] - Print Language: Czech
[2024-01-11 08:21] VITALS: BP 139/102; PULSE 98; RESP 16; TEMP 37.1; O2SAT 95
[2024-01-11 08:32] VITALS: BP 157/97
[2024-01-11] MEDS: methocarbamoL 750 MG TABLET PO (08:33)
[2024-01-11] MEDS: Lidocaine 4 % Patch ADH..PATCH 1 PATCH TRANSDERMA (08:33)
[2024-01-11 08:43] VITALS: BP 157/97; PULSE 98; RESP 16; TEMP 37.1; O2SAT 95
== END 2024-01-11 08:44 | disposition home or self-care (01) ==
PROVIDERS: Emergency Provider Emergency Medicine; PCP Internal Medicine
DX: S16.1XXA Strain of muscle, fascia and tendon at neck level, initial encounter (principal); M54.2 Cervicalgia; H92.02 Otalgia, left ear; X58.XXXA Exposure to other specified factors, initial encounter; Y93.89 Activity, other specified; Y92.89 Other specified places as the place of occurrence of the external cause; Y99.8 Other external cause status; Z79.899 Other long term (current) drug therapy
CPT/HCPCS: 99283

== ENCOUNTER 2024-02-05 10:39 | Outpatient (AMB) | payer MEDICARE, MEDICAID, SELFPAY ==
[2024-02-05 10:59] VITALS: PULSE 87; O2SAT 97; BMI 34.2
--- NOTE | 2024-02-05 10:59 | A.OFFVIS_ITS ---
Vital Signs 02/05/24 10:59 Height 5 ft 2 in Weight 187 lb BMI 34.2 Pulse 87 Pulse Source Pulse Oximeter Pulse Oximetry (%) 97 Oxygen Delivery Method Room Air Intake Visit Reasons: Pulmonary nodule/Sleep Study Follow Up Allergies aspirin [ASA] Allergy (Intermediate, Verified 02/05/24 11:01) RASH AND ITCHING ibuprofen Allergy (Intermediate, Verified 02/05/24 11:01) rash itching penicillin V Allergy (Intermediate, Verified 02/05/24 11:01) rash oxycodone Allergy (Unknown, Verified 02/05/24 11:01) Rash HPI Comments Details: The patient is a 58-year-old woman with a known history of lupus known to have pulmonary nodules. Apparently back in January of [address] chest to follow-up nodules and was found to have a left lower lobe nodular density measuring more than a cm in size. Prior to that back in 2012 also did look at a CT scan where this area only demonstrated some degree of scarring and cystic changes. The patient ultimately developed back pain and was admitted to the hospital with that and underwent a CT scan of the abdomen in early July 2023 which I personally reviewed demonstrating that the nodular density still about a 1 cm plus in size in the left lower lobe. It is irregular in appearance. The patient also complains of pleuritic chest discomfort. Moderate severity. She does have a history of lupus therefore pleuritis is in the differential. She had been followed by Rheumatology here but now she is set up to follow-up with Rheumatology at [facility] she has been on Plaquenil for that. The patient does state having some visual changes at time. I did recommend to mention that to her site leasing agent. If visual changes worsen she went to stop the Plaquenil. Based on the fact the patient has this increasing size pulmonary nodule I do believe the best option is to perform a PET scan to better address the metabolic activity of the nodule. If the nodule demonstrates hypermetabolic activity then I did recommend a biopsy of the nodule the meantime the patient will also undergo blood work to assess the inflammatory changes. 10/30/2023 the patient is here for a pulmonary follow-up visit. Overall the patient has been doing okay. She did have a PET scan to follow-up with the pulmonary nodule in the left lower lobe measuring about 1 cm. I personally reviewed the PET scan with the patient. The nodular density did not have any FDG activity which is reassuring. Although she did have some FDG activity around the larynx in the nasopharynx. The recommendation was to have direct visualization of the area. The patient does have a sore throat that comes and goes. She also appears to have a degree of Sjogren's. Will go ahead and refer her to ENT for laryngoscopy. In the meantime she does have significant daytime drowsiness. Her [place]vale score is elevated 12/24. She is taking a sleep aid. She does have documented snoring and apneic episodes. She does wake up with headaches. The patient needs to have a sleep study this time. Will request a home sleep study. We also reviewed her blood work. Her sedimentation rate is indeed elevated. Her Sjogren's antibodies were also positive suggesting the possibility of a mixed connective tissue disorder with lupus and also Sjogren's. Currently her left-sided pleuritic discomfort is better. Will follow-up in 3- 4 months after his sleep study. 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 Left breast mass Osteoarthritis HTN (hypertension) Surgical History History of breast lump/mass excision Hx of lymph node biopsy Hx of cholecystectomy Family History Mother Diabetes Arthritis Lupus Father Diabetes Sister Rheumatoid arthritis Social History Household Members: None Alcohol intake: never Patient Tobacco Use Status: Never used Tobacco service: No Current occupational status: retired Review of Systems Const Reports daytime sleepiness, Reports difficulty sleeping, Denies fever(s), Reports headache(s) and Reports stops breathing during sleep Eyes Reports change in vision ENT Reports no additional complaints, Reports headache(s), Reports post nasal drip, Reports sinus pain and Reports sinus pressure Card Denies palpitations Resp Reports chest congestion, Reports cough, Denies pain on inspiration and Denies pain with cough GI Reports dyspepsia and Reports heartburn Musc Reports as per HPI Skin/Breast Denies rash Neuro Reports headache(s) Endo Denies palpitations Jeremy/Lymph Denies lymphadenopathy Physical Exam Vital Signs: Last Vital Signs Pulse 87 02/05/24 10:59 Pulse Ox 97 02/05/24 10:59 Oxygen Delivery Method Room Air 02/05/24 10:59 BMI result Body Mass Index 34.2 Const General: comfortable Nutritional Appearance: well nourished Orientation/consciousness: patient oriented x3 HEENT Head: No normal to inspection Mouth: moist mucous membranes Neck Neck: Yes supple and Yes no JVD Chest Chest palpation & inspection: normal inspection of the chest Resp Effort & Inspection: normal respiratory effort Auscultation: clear to auscultation bilaterally, no rales and No rub present Cardio Jugular venous distension: no JVD Palpation: no palpable S3 and no palpable S4 Heart sounds: no rubs GI Palpation (GI): Soft to palpation and nontender Percussion: No Fluid wave present General: Yes no CVA tenderness Back/Spine/Pelvis Back: no CVA tenderness Skin General skin exam: no rashes or lesions noted Neuro General: patient oriented x3 Extrem Other: Tenderness along right malleoli General: Yes no pedal edema and No clubbing Assessment & Plan Assessment & Plan (1) Sinusitis: Code(s): J32.9 - Chronic sinusitis, unspecified Category: Medical Qualifiers: Sinusitis location: unspecified location Chronicity: subacute Qualified Code(s): J01.90 - Acute sinusitis, unspecified (2) Pulmonary nodule: Code(s): R91.1 - Solitary pulmonary nodule Category: Medical (3) Lupus (systemic lupus erythematosus): Code(s): M32.9 - Systemic lupus erythematosus, unspecified Category: Medical Qualifiers: Systemic lupus erythematosus organ involvement: glomerular disease Systemic lupus erythematosus type: unspecified Qualified Code(s): M32.14 - Glomerular disease in systemic lupus erythematosus (4) JUANITA (obstructive sleep apnea): Code(s): G47.33 - Obstructive sleep apnea (adult) (pediatric) Category: Medical (5) Sjogren's disease: Code(s): M35.00 - Sjogren syndrome, unspecified Category: Medical Qualifiers: Sjogren organ or system involvement: unspecified organ involvement Qualified Code(s): M35.00 - Sjogren syndrome, unspecified Plan start fluticasone nasal spray start doxycycline for sinusitis Home sleep study, mild JUANITA. Positional therapy repeat CT chest in 2024 reflux diet ENT referral for the findings on the PET F/U 3 months Orders: Referrals Ear/Nose/Throat Referral J04.0 - Acute laryngitis, R94.8 - Abnormal results of function studies of other organs and systems Medications: New doxycycline monohydrate 100 mg PO BID 14 days 28 tabs 0RF fluticasone propionate 50 mcg/actuation 2 sprays intranasal DAILY 30 days 15.8 mL 11RF J31.0 - Chronic rhinitis Coding Level of Care Code Est Pt Level 4 (77705) Diagnoses Subacute sinusitis, unspecified location J01.90 Sinusitis location: unspecified location Chronicity: subacute Pulmonary nodule R91.1 Systemic lupus erythematosus with glomerular disease, unspecified SLE type M32.14 Systemic lupus erythematosus organ involvement: glomerular disease Systemic lupus erythematosus type: unspecified JUANITA (obstructive sleep apnea) G47.33 Sjogren's syndrome, with unspecified organ involvement M35.00 Sjogren organ or system involvement: unspecified organ involvement Time Spent (min) 17
== END 2024-02-05 11:24 | disposition home or self-care (01) ==
PROVIDERS: PCP Internal Medicine; Visit Provider Hospitalist
DX: J01.90 Acute sinusitis, unspecified (principal); R91.1 Solitary pulmonary nodule; M32.14 Glomerular disease in systemic lupus erythematosus; G47.33 Obstructive sleep apnea (adult) (pediatric); M35.00 Sjogren syndrome, unspecified
CPT/HCPCS: 99214

== ENCOUNTER → 2024-02-05 10:39 | Outpatient (BNVA) | payer MEDICARE, SELFPAY | PROVIDERS: PCP Internal Medicine; Visit Provider Hospitalist | DX: J01.90 Acute sinusitis, unspecified (principal); R91.1 Solitary pulmonary nodule; M32.14 Glomerular disease in systemic lupus erythematosus; G47.33 Obstructive sleep apnea (adult) (pediatric); M35.00 Sjogren syndrome, unspecified | CPT/HCPCS: 99212 ==

== ENCOUNTER → 2024-02-13 14:03 | Outpatient (RCR) | payer MEDICARE, MEDICAID, SELFPAY ==
[2020-04-10 15:08] VITALS: BP 180/91; PULSE 99; RESP 18; TEMP 36.7; O2SAT 100
--- NOTE | 2020-04-10 15:08 | P.PNHO_ITS ---
Medical Summary - Medical Summary Chief complaint: follow-up for: Amyloidosis of the left breast. Medical Summary: DIAGNOSIS: Amyloidosis of left breast. CURRENT THERAPY: Status post lumpectomy in August of 2018. Interval History Interval history: This is a pleasant 54 year-old lady, Here for a follow-up visit. She has been doing quite well. She tells me, sometimes she notices tenderness at her lumpectomy site. She has not felt a lump. She denies fatigue. No Fever. She denies CP nor SOB. No abd pain, n/V, ht burn nor indigestion. Bowels are working, no gross blood in it. Apetite is good, she is losing wt intentially. She is in good spirits. rest of the ROS is unremarkable. Previous History; She was noted to have an abnormal mammogram, in April 272017. This revealed: Incompletely characterized left breast upper-outer quadrant neocalcifications and left axillary lymph node. BI-RADS 0: Incomplete - Need Additional Imaging Evaluation Additional left CC and MLO spot compression-magnification views, together with ultrasound as indicated. May 18, she had Stereotactic biopsy which revealed: Breast, left, stereotactic biopsy: Benign breast tissue with focus of sclerosing adenosis and periductal and perivascular hyalinization with associated microcalcifications (see note). Note: Benign breast tissue is present with periductal, perivascular and focal stromal hyalinization with associated microcalcifications and focal giant cell reaction. Focal periductal lymphoplasmacytic infiltrates are also noted. Congo red special stain is ordered to rule out amyloid. Result of Congo Red special stain Congo red stain is positive for amyloid. Review of Systems - Constitutional Reports weight loss, Denies fatigue, Denies fever(s), Denies lack of energy - Eyes Denies blurry vision - ENT Reports system reviewed and no additional complaints, except as documented - Cardiovascular Denies chest pain at rest, Denies chest pain with activity - Gastrointestinal Denies abdominal pain, Denies bloating, Denies feeling full early - Genitourinary Denies abnormal periods - Musculoskeletal Reports muscle weakness - Integumentary/Breasts Skin/Breast: Denies bleeding lesions - Neurologic Reports system reviewed and no additional complaints, except as documented - Psychiatric Denies abnormal sleep pattern, Denies anxiety [facility] Medical History: Medical History (Last Updated 04/10/20 @ 15:19 by Hali Pierson RN) HTN (hypertension) Hyperlipidemia 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 Lupus (systemic lupus erythematosus) Osteoarthritis Home Medications and Allergies Home Medications Medication Instructions Recorded Confirmed Type albuterol sulfate [ProAir HFA] 2 puff INHALATION Q4-6H PRN 04/10/20 04/10/20 History allopurinol 100 mg PO DAILY 04/10/20 04/10/20 History atorvastatin 80 mg PO DAILY 04/10/20 04/10/20 History budesonide-formoterol [Symbicort] 2 puff INHALATION BID 04/10/20 04/10/20 History diltiazem HCl 240 mg PO DAILY 04/10/20 04/10/20 History duloxetine 60 mg PO DAILY 04/10/20 04/10/20 History furosemide [Lasix] 20 mg PO DAILY 04/10/20 04/10/20 History hydralazine 100 mg PO BID 04/10/20 04/10/20 History hydroxychloroquine [Plaquenil] 200 mg PO DAILY 04/10/20 04/10/20 History olopatadine 0.2 drp OPHTHALMIC (EYE) BID 04/10/20 04/10/20 History prednisone 20 mg PO DAILY 04/10/20 04/10/20 History quetiapine [Seroquel] 25 mg PO DAILY 04/10/20 04/10/20 History tiotropium bromide [Spiriva with 1 cap INHALATION DAILY 04/10/20 04/10/20 History HandiHaler] valsartan 320 mg PO DAILY 04/10/20 04/10/20 History Allergies Allergy/AdvReac Type Severity Reaction Status Date / Time aspirin [ASA] Allergy Intermediate RASH AND Unverified 03/05/20 16:01 ITCHING acetaminophen [Percocet] Allergy Unknown Verified 05/19/14 00:00 ibuprofen Allergy Unknown Verified 11/07/19 00:00 oxycodone [Percocet] Allergy Unknown Verified 05/19/14 00:00 penicillin V Allergy Unknown Verified 05/19/14 00:00 Exam - Constitutional Present: no acute distress - Routine HEENT Exam Head: Present: normal inspection ENT: Present: mucous membranes moist - Routine Neck Exam Present: full ROM - Routine Respiratory Exam Present: CTAB - Routine Cardiovascular Exam Cardiovascular: Present: RRR, S1, S2 - Routine Abdominal Exam Present: soft, nontender - Routine Neurological Exam Present: alert, oriented X3 - Detailed Neurological Exam: Coma Scale Eye Opening: Spontaneous (4) Verbal Response: Oriented (5) Progress Note: A/P (1) Amyloidosis Status: Acute Assessment and plan: This is a pleasant 54 year-old lady, with history of SLE. She has been on immunosuppressive therapy for years. Most recently she has been on Prednisone. Currently on 20 mg. In March of 2018, She had an abnormal mammogram, which showed microcalc ifications. Stereotactic biopsy revealed Amyloidosis. She had reexcision to obtain negative margins, by Dr. Choi, in August of 2018. l checked her SIEP to look for a monoclonal spike. This came back negative. Checked beta 2 Macroglobulin level: It is 2.8. I reassured her that she does not have any systemic evidence for MGUS. That can sometimes be associated with amyloidosis. She does not have any symptoms suggestive of the disease, nor any residual disease. She had a mammogram this month which revealed: BI-RADS 3: Probably Benign Diagnostic left mammography with magnification views in 6 months. PLAN: She will go for a repeat mammogram of the left breast, in 6 month. I will continue to monitor her, SIEP. She will return in 6 months for a follow up visit. Thank you, CC: Dr. Alberta Toney. Dr. Vince Esparza. - Time Spent With Patient Total time spent is greater than 50% in coordination of care (as documented) at patient's floor/unit and/or counseling patient: 25 - 35 minutes
[2020-04-10 15:09] VITALS: BMI 29.7
== END | disposition home or self-care (01) ==
LOC: HO.ONC 04-10 14:46
PROVIDERS: PCP Internal Medicine; Visit Provider Internal Medicine Medical Oncology
DX: Z86.39 Personal history of other endocrine, nutritional and metabolic disease (principal); M32.9 Systemic lupus erythematosus, unspecified; Z79.52 Long term (current) use of systemic steroids; Z79.899 Other long term (current) drug therapy
CPT/HCPCS: 99214

== ENCOUNTER 2024-08-07 11:47 | Outpatient (REF) | payer MEDICARE, MEDICAID, SELFPAY ==
--- OUTSIDE RECORDS SUMMARY | 2024-08-07 12:25 | XMS_ITS ---
Author Organization Elvis Dash III, MD Address [address] [place] [address] [address] [place] [address] Care Team Providers Care Hospice Office Coordinator Name Role Phone Alberta Toney MD Primary Care Provider Elvis [facility]res [facility] [phone] REASON FOR VISIT Follow up Medications Medication [...] Date Provider Diagnosis Elvis Dash III, MD [address] [place] [address] [place] [address] 01/10/2024 Elvis Dash Plan Of Treatment No Information Progress Notes * Yelena LUONGDOB:1965 (59 yo F)Acc No.[id number]:01/10/2024 Progress Notes Patient:?Yelena LUONG Provider:?Elvis Dash MD :1965???Age:58 Y???Sex:Female D ate:01/10/2024 Address:[address] [place], [place] [address], [id number] Pcp:Alberta Toney MD Subjective: * Chief Complaints: * ???1. Follow up. * HPI: ???COVID-19 Screening:?Questions?Have you had any new onset fever, chills, cough, congestion, sore throat, shortness of breath, muscle aches??No ?Have you been exposed to the virus within the last 10 days??No ?Have you travelled internationally in the last 10 days??No ?Have you been exposed to COVID-19 in the past??No * ROS:?General/Constitutional:?pain?only normal aches and pains.?Chills?denies.?Fatigue?admits.?Fever?denies.?ENT:?Decreased hearing?denies.?Respiratory:?Cough?denies.?Cardiovascular:?Chest pain with exertion?denies.?Dyspnea on exertion?denies.?Shortness of breath?denies.?Gastrointestinal:?Constipation?denies.?Decreased appetite?denies.?Diarrhea?denies.?Heartburn?denies.?Nausea?denies.?Rectal bleeding?denies.?Vomiting?denies.?Hematology:?bruising?denies.?petechiae?denies.?Swollen glands?none have been noted.?Genitourinary:?Frequent urination?denies.?Musculoskeletal:?Muscle aches?denies.?Painful joints?denies.?Sciatica?denies.?Weakness?denies.?Skin:?Itching?denies.?Rash?denies.?Skin lesion(s)?denies.?Neurologic:?Difficulty speaking?denies.?Dizziness?denies.?Headache?denies.?Low back pain?denies.?Psychiatric:?Depressed mood?denies.? * Medical History:? * Medications:?Taking Lisinopr il 10 MG Tablet 1 tablet Orally Once [...] CAPSULE TWICE A DAY Oral Objective: * Vitals:? * Examination: ???General Examination: ?GENERAL APPEARANCE:?pleasant, well nourished, well developed, in no acute distress, calm and relaxed.?HEAD:?atraumatic, normocephalic.?EYES:?eomi, perrla, anicteric, conjugate.?EARS:?normal.?NOSE:?septum intact.?ORAL CAVITY:?normal, unremarkable.?NECK/THYROID:?no jugular venous distention, no carotid bruit, thyroid normal.?LYMPH NODES:?no enlarged lymph nodes,spleen normal.?SKIN:?no suspicious lesions, anicteric.?HEART:?no clicks, gallops, murmurs, or rubs, regular rhythm, S1, S2 normal, no s3, or vascular bruits.?LUNGS:?clear to auscultation .?BREASTS:??no masses palpable bilaterally.?ABDOMEN:?bowel sounds normal, no ascites, no organomegaly, no mass.?RECTAL EXAM:?not examined.?MUSCULOSKELETAL:?extremities unremarkable, no clubbing, cyanosis or edema.?PERIPHERAL PULSES:?normal.?NEUROLOGIC:?alert and oriented, cranial nerves 2-12 grossly intact, deep tendon reflexes 2+ symmetrical, motor strength normal upper and lower extremities, sensory exam intact.?PSYCH:?alert, oriented.? Assessment: Plan: * Treatment: * Images: * The named appointment provid er may or may not be the originator of this progress note, and it is not deemed complete until electronically signed by the appointment provider. Sign off status: Pending * Provider:?Elvis Dash MD Date:?12/18 Generated for Nayana vora/Amrit/Nicitting on:?08/07/2024 12:24 PM EST History and Physical Notes * HPI (History [...]
--- OUTSIDE RECORDS SUMMARY | 2024-08-07 12:25 | XMS_ITS | Patient Health Record ---
Author Organization Elvis Dash III, MD Address [address] [place] [address] [place] [address] Care Team Providers Care Catalyst Impregnator Name Role Phone Alberta Toney MD Primary Care Provider Elvis Cortes [facility] [phone] Allergies Allergen (clinical drug ingredient) Drug/Non Drug Allergy documented on EMR Reaction Allergy Type Onset Date Status acetaminophen / oxycodone Percocet Unknown Drug Allergy Active aspirin Aspirin Stomach Pain, Itchi Drug Allergy Active Reason For Referral No Information Medications Medication SIG (Take, Route, Frequency, Duration) Notes Start Date End Date Status predniSONE 5 MG 1 tablet with food o r milk Orally Twice a day Active Loperamide HCl 2 MG TAKE 2 CAPSULES BY MOUTH NOW THEN 1 AFTER EACH LOOSE BOWEL MOVEMENT Oral Active dilTIAZem HCl ER Coated Bead s 240 MG Oral Active Prochlorperazine Maleate 10 MG TAKE 1 TABLET BY MOUTH TWICE A DAY FOR VOMITING Oral Active Spiriva HandiHaler 18 MCG 1 capsule Inha lation Once a day Active Sertraline HCl 100 MG TAKE 1 TABLET BY M OUTH EVERY DAY Oral Active ProAir HFA 108 (90 Base) MCG/ACT 2 puffs as needed Inhalation Once a day Active Allopurinol 100 MG TAKE 1 TABLET BY ALLAN TH EVERY DAY Oral Active Omeprazole 20 MG 1 capsule Orally Twi ce a day Active Minocycline HCl 100 MG TAKE ONE CAPSULE TWICE A DAY Oral Active Loratadine 10 MG 1 tablet Orally Once a day Active hydrALAZINE HCl 100 MG 1 tablet Orally T hree times day Active Citalopram Hydrobromide 40 MG 0.5 tablet Orally Once a day Active Lisinopril 10 MG 1 tablet Orally Once a day Active Cardizem CD 240 MG 1 capsule Orally Onc e a day Active Plaquenil 200 MG 1 tablet with food o r milk Orally Twice a day Active Albuterol Sulfate (2.5 MG/3ML) 0.083% 3 ml Inhalation Twice times a day Active Calcium Carbonate-Vitamin D 600-400 MG-UNIT TAKE 1 TABLET BY MOUTH TWICE A DAY WITH FOOD Oral Active Doxepin HCl 10 MG 1 capsule at bedtime Orally Once a day Active Social History Tobacco Use: Social History Observation Description Date Details (start date - stop date) Never Smoker NA - NA Sex Assigned At : Social History Observation Description Sex Assigned At Female Tobacco Use/Smoking Question Answer Notes Patient is a nonsmoker Additional Findings: Tobacco Non-User Aggressive non-smoker Problems Problem Type SNOMED Code ICD Code Onset Dates Problem Status W/U Status Risk Notes Problem Hyperlipidemia (51784456) Hyperlipidemia (272.4) Active confirmed No recent lipid profile is available at this time. Problem Hyperlipidemia (07363340) Hyperlipidemia (E78.5) Active confirmed Problem 563833468 Obesity (E66.9) Active confirmed She has lost 14 pounds since her last visit. She will be observed carefully. Problem 106103994 Unspecified asthma, uncomplicated (J45.909) Active confirmed She was breathing comfortably today. No wheezing was detected. She has been compliant with her treatments. Problem 675870893 Gastro-esophagea l reflux disease without esophagitis (K21.9) Active confirmed Her reflux is well-control led at the current time with [id number] nter medications. 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 The BUN was 12 on the last visit. She is asymptomatic . Problem 84135789 Essential hypertension (I10) Active confirmed Her blood pressure today is 132/90 I made no change in her regimen. I recommended weight loss in sodium restriction. Problem 39598295 Other and unspecified hyperlipidemia (E78.5) Active confirmed I have recommended weight loss in a diet restricted in fat calories in sodium. Problem 67336936 Depressive disorder, not elsewhere classified (F32.9) Active confirmed Her depression was present today but was mild. She is conducting all of the activities of daily life without impairment and has no intention of harming herself. Problem 141867732 Anxiety state (F41.1) Active confirmed There his been no change in this problem. She remains under care. Problem 64735849 Lymphadenopathy (R59.1) Active confirmed No adenopathy was encountered today. Problem 62471013 Systemic lupus erythematosus (M32.9) Active confirmed She is not currently receiving steroids at her lupus has been quiet. Problem 7293181 Helicobacter pylori infection (A04.8) Active confirmed Problem 657046368 Chronic migraine without aura with status migrainosus, not intractable (G43.701) Active confirmed She has occasional migraines but they have become less frequent. Problem 97006170 Amyloidosis, unspecified type (E85.9) Active confirmed She was referred back to hematology for evaluation, management and follow-up. Vital Signs Heart Rate 68 /min 01/23/2024 Temperature 97.3 degrees Fahrenheit 01/23/2024 Blood pressure diastolic 101 mm Hg 01/23/2024 Height 62 in 01/23/2024 Blood pressure systolic 155 mm Hg 01/23/2024 Weight 186 lbs 01/23/2024 BMI 34.02 kg/m2 01/23/2024 Encounters Encounter Location Date Provider Diagnosis Elvis Dash III, MD [address] [place] [address] [place] [address] 01/23/2024 Elvis Dash Lymphadenopathy R59. 1 ; [...] loss in sodium restriction. Plan Of Treatment Pending Test Test Name Order Date PROFILE, RANDOM (COMPREHENSIVE METABOLIC ) 09/22/2021 PROFILE, RANDOM (COMPREHENSIVE METABOLIC ) 01/23/2024 PROFILE, RANDOM (COMPREHENSIVE METABOLIC ) 07/25/2018 PROFILE, RANDOM (COMPREHENSIVE METABOLIC ) 06/21/2023 PROFILE, RANDOM (COMPREHENSIVE METABOLIC ) 07/12/2021 PROFILE, RANDOM (COMPREHENSIVE METABOLIC ) 02/27/2023 PROFILE, RANDOM (COMPREHENSIVE METABOLIC ) 10/23/2018 PROFILE, RANDOM (COMPREHENSIVE METABOLIC ) 10/13/2022 LDH 01/23/2024 LDH 06/21/2023 LDH 02/27/2023 CBC w DIFF 09/22/2021 CBC w DIFF 07/25/2018 CBC w DIFF 07/12/2021 CBC w DIFF 10/23/2018 CBC w DIFF 10/13/2022 CBC w DIFF 02/27/2023 SED RATE (ESR) 02/27/2023 SED RATE (ESR) 01/23/2024 SED RATE (ESR) 06/21/2023 IMMUNOFIXATION PANEL, SERUM (IEP) 2018 IMMUNOFIXATION PANEL, SERUM (IEP) 2022 PROTEIN ELECTROPHORESIS, SERUM 3 PROTEIN ELECTROPHORESIS, SERUM 2 PROTEIN ELECTROPHORESIS, SERUM 9 PROTEIN ELECTROPHORESIS, SERUM 9 BETA-2 MICROGLOBULIN, SERUM 02/27/2023 FREE KAPPA LAMBDA, SERUM K/L RATIO 10/23 FREE KAPPA LAMBDA, SERUM K/L RATIO 07/25 KAPPA LAMBDA SER 10/23/2018 KAPPA LAMBDA SER 07/25/2018 PROTEIN ELECTROPHORESIS, RANDOM URINE CBC WITH AUTO DIFF 06/21/2023 CBC WITH AUTO DIFF 01/23/2024 Beta-2 Microglobulin, Serum 06/21/2023 CA 27.29 07/12/2021 Insurance Providers Payer Name Payer Address Payer Phone Subscriber Number Group Number Insured Name Patient Relationship to Insured Coverage Start Date Coverage End Date [employer]vantage [address] [address] [place] [address] [id number] Yelena Mckinney Self - patient is the insured MEDICAID [address] [place] [id number] [phone] [id number] Yelena Mckinney Self - patient is the insured MEDICARE NGS [address] [place] [address] [phone] [id number] Yelena Mckinney Self - patient is the insured Medical (General) History Medical History History ICD Code chronic lymphadenopathy systemic lupus erythematosus hypertension migraine headaches hyperlipidemia GERD asthma depression anxiety cholelithiasis 2012 H. 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
--- OUTSIDE RECORDS SUMMARY | 2024-08-07 12:25 | XMS_ITS | Clinical Summary ---
Author Organization [facility] Address [address] [place] [address] Phone Care Team Providers Care Area Director Of Home Health Sales Name Role Phone Unavailable Primary Care Provider Unavailabl e Allergies Active Allergy Reactions Criticality Noted Date Comments Aspirin Other (see comments) 07/19/2021 Hydralazine Other (see comments) 07/11/2019 Oxycodone-Acetaminophen Other (see comments) Medications budesonide-form oterol (SYMBICORT) 160-4.5 MCG/ACT inhaler Inhale 2 puffs 2 (two) times a day Active dilTIAZem (TIAZAC) 240 MG 24 hr capsule Take 1 capsule by mouth 1 (one) time each day 01/31/2011 Active fluticasone (Flovent Diskus) 100 MCG/BLIST diskus inhaler Activ e hydroxychloroqu ine (PLAQUENIL) 200 MG tablet Take 1 tablet by mouth 2 (two) times a day Active loratadine (CLARITIN) 10 MG tablet Take 1 tablet by mouth 1 (one) time each day Active QUEtiapine (SEROquel) 50 MG tablet Take 1 tablet by mouth 1 (one) time each day Active rosuvastatin (CRESTOR) 40 MG tablet Take 40 mg by mouth 1 (one) time each day 09/24/2020 Active Cholecalciferol (Vitamin D3) 2400 UNIT/ML liquid 1 capsule Active sertraline (ZOLOFT) 100 MG tablet Take 1 tablet by mouth 1 (one) time each day Active omeprazole (PriLOSEC) [address] capsule 1 capsule Active Loperamide HCl 2 MG/15ML solution TAKE 2 CAPSULES BY MOUTH NOW THEN 1 AFTER EACH LOOSE BOWEL MOVEMENT Active allopurinol (ZYLOPRIM) 100 MG tablet Take 1 tablet by mouth 1 (one) time each day Active citalopram (CeleXA) 40 MG tablet 1 (one) time each day Active albuterol (2.5 MG/3ML) 0.083% nebulizer solution 3 ml Active telmisartan-hyd roCHLOROthiazid e (MICARDIS HCT) 80-25 MG per tablet 11/16/2022 Active Active Problems Problem Noted Date Diagnosed Date 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 Anxiety state 07/29/2021 Asthma without status asthmaticus 07/29/2021 Cholelithiasis without obstruction 07/29/2021 Chronic migraine without aura with status migrai nosus 07/29/2021 Depressive disorder 07/29/2021 Essential hypertension 07/29/2021 Gastro-esophageal reflux disease without esophag itis 07/29/2021 Hyperlipidemia 07/29/2021 Infection caused by Helicobacter pylori 07/29/19 Lymphadenopathy 07/29/2021 Obesity 07/29/2021 Systemic lupus erythematosus 07/29/2021 Anemia of chronic disease 10/14/2020 Chronic kidney disease stage 3 10/14/2020 Hypertensive chronic kidney disease, unspecified, with chronic kidney disease stage I through stage IV, or unspecified 10/14/2020 Resolved Problems Problem Noted Date Diagnosed Date Resolved Date 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 07/29/2021 11/21/2022 Family History Medical History Relation Comments Hypertension Father Diabetes Mother Hypertension Mother Relation Status Comments Father Unknown Mother Social History Tobacco Use Types Packs/Day Years Used Date Smoking Tobacco: Former Alcohol Use Standard Drinks/Week Comments No 0 (1 standard drink = 0.6 oz pur e alcohol) Comments Unknown Sex and Gender Information Value Date Recorded Sex Assigned at Not on file Legal Sex Female 4:40 PM EST Gender Identity Not on file Sexual Orientation Not on file Last Filed Vital Signs Vital Sign Reading Time Taken Comments Blood Pressure 130/70 05/25/2023 1:56 PM EST Pulse 91 05/25/2023 1:56 PM EST Temperature - - Respiratory Rate - - Oxygen Saturation 98% 03/06/2023 3:12 PM EDT Inhaled Oxygen Concentration - - Weight 81.6 kg (180 lb) 05/25/2023 1:56 PM EST Height 157.5 cm (5' 2 ) 03/06/2023 3:12 PM EDT Body Mass Index 32.92 03/06/2023 3:12 PM EDT Plan of Treatment Health Maintenance Due Date Last Done Comments Breast Cancer Screening 1965 Pneumococcal Vaccine: Pediat rics (0 to 5 Years) and At-Risk Patients (6 to 64 Years) (1 of 2 - PCV) 1972 Hepatitis B Vaccine (1 of 3 - 19+ 3-dose series) 07/01 Colorectal Cancer Screening: Annual FOBT 2015 Colorectal Cancer Screening: Colonoscopy 2015 Colorectal Cancer Screening: Sigmoidoscopy 2015 Influenza Vaccine (#1) 2024 Insurance [place]
--- OUTSIDE RECORDS SUMMARY | 2024-08-07 12:25 | XMS_ITS ---
Author Organization Elvis Dash III, MD Address [address] [place] [address] Care Team Providers Care Flat Sheet Maker Name Role Phone Alberta Toney MD Primary Care Provider Elvis Cortes [facility] [phone] Allergies Allergen (clinical drug ingredient) Drug/Non Drug [...] Date Provider Diagnosis Elvis Dash III, MD [address] [place] [address] [place] [address] 07/25/2024 Elvis Dash Lymphadenopathy R59. 1 Assessments [...] Notes * Yelena LUONGDOB:1965 (59 yo F)Acc No.[id number]:07/25/2024 Progress Notes Patient:?Yelena LUONG Provider:?Elvis Dash MD :1965???Age:59 Y???Sex:Female D ate:07/25/2024 Address:[address] [place], [place] [address] Pcp:Alberta Toney MD Subjective: * Chief Complaints: * ???1. Follow up. * HPI: ???COVID-19 Screening:?Questions?Have you had any new onset fever, chills, cough, congestion, sore throat, shortness of breath, muscle aches??No * ROS:?General/Constitutional:?pain?only normal aches and pains.?Chills?denies.?Fatigue?admits.?Fever?denies.?ENT:?Decreased hearing?denies.?Respiratory:?Cough?denies.?Cardiovascular:?Chest pain with exertion?denies.?Dyspnea on exertion?denies.?Shortness of breath?denies.?Gastrointestinal:?Constipation?denies.?Decreased appetite?denies.?Diarrhea?denies.?Heartburn?denies.?Nausea?denies.?Rectal bleeding?denies.?Vomiting?denies.?Hematology:?bruising?denies.?petechiae?denies.?Swollen glands?none have been noted.?Genitourinary:?Frequent urination?denies.?Musculoskeletal:?Muscle aches?denies.?Painful joints?denies.?Sciatica?denies.?Weakness?denies.?Skin:?Itching?denies.?Rash?denies.?Skin lesion(s)?denies.?Neurologic:?Difficulty speaking?denies.?Dizziness?denies.?Headache?denies.?Low back pain?denies.?Psychiatric:?Depressed mood?denies.? * Medical History:?Chronic lym phadenopathy, Systemic lupus erythematosus, Hypertension, Migraine headaches, Hyperlipidemia, GERD, Asthma, Depression, Anxiety, Cholelithiasis, 2013 H. pylori infection, Membranous nephropathy, Rapidly progressive glomerulonephritis. * Surgical History:?lymph node biopsy 2010, kidney biopsy 2005, cholecystectomy 2005, mass removal from left breast 08/2018. * Hospitalization/Major Diagno stic Procedure:?HTN and lung infection 06/2018. * Family History:?Father: mack sorensen 82 yrs, adult onset diabetes mellitus, colon cancer, hypertension.?Mother: alive 75 yrs, adult onset diabetes mellitus, Lupus.?Paternal Grand Father: cancer.?Paternal Grand Mother: cancer.?Maternal Grand Father: cancer.?Maternal Grand Mother: cancer.?Maternal aunt: breast cancer.?3 brother(s) , 2 sister(s) . 2 daughter(s) - healthy. .? One of her sisters has rheumatoid arthritis. * Social History:?Tobacco Use:?Tobacco Use/Smoking?Patient is a?nonsmoker ?Additional Findings: Tobacco Non-User?Aggressive non-smoker ???She was in [place]. Her [facility] is [facility] [phone]. She lives with her daughter but has a significant other. 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 * Medications:?Taking Lisinopr il 10 MG Tablet [...] reviewed and reconciled with the patient * Allergies:?Aspirin: Stomach Pain, Itchi - Allergy, Percocet. Objective: * Vitals:? * Examination: ???General Examination: [...] lower extremities, sensory exam intact.?PSYCH:?alert, oriented.? Assessment: * Assessment: 1.?Lymphadenopathy - R59.1?? ?Notes :No adenopathy was encountered today.??? Plan: * Treatment: * Images: * The named appointment provid er may or may not be the originator of this progress note, and it is not deemed complete until electronically signed by the appointment provider. Sign off status: Pending * Provider:?Elvis Dash MD Date:?11/2024 Generated for Nayana vora/Amrit/Ivettsmitting on:?08/07/2024 12:25 PM EST History and Physical Notes * [...]
--- OUTSIDE RECORDS SUMMARY | 2024-08-07 12:25 | XMS_ITS ---
Author Organization Elvis Dash III, MD Address [address] [place] [address] [address] [place] [address] Care Team Providers Care Facility Manager Histology Name Role Phone Alberta Toney MD Primary Care Provider Elvis Cortes [phone] Allergies Allergen (clinical drug ingredient) Drug/Non Drug [...] Date Provider Diagnosis Elvis Dash III, MD [address] [place] [address] [place] [address] 01/23/2024 Elvis Dash Lymphadenopathy R59. 1 ; [...] 6 Months, Reason: OV Progress Notes * CHERISE YelenaDOB:1965 (58 yo F)Acc No.[id number]:01/23/2024 Progress Notes Patient:?Yelena Mckinney Provider:?Elvis Dash MD :1965???Age:58 Y???Sex:Female D ate:01/23/2024 Address:[address] [place], [id number] Pcp:Alberta Toney MD Subjective: * Chief Complaints: * ???LymphadenopathyAsthmaDepr essionGERDHyperlipidemiaLupus * HPI: ???COVID-19 Screening:? She returns to the office after 6 months for follow-up of lymphadenopathy. She has had some enlarged lymph nodes in her neck and submental area. On examination today no enlarged lymph nodes could be found. Her spleen was normal. She has had no fever or pain or sweats. Observation was continued. ?Questions?Have you experienced fever, chills, cough, sore throat, shortness of breath, difficulty breathing, muscle aches, loss of taste or smell??No ?Have you been exposed to the virus within the last 10 days??No ?Have you travelled internationally in the last 10 days??No ?Have you been exposed to COVID-19 in the past??No * ROS:?General/Constitutional:?pain?only normal aches and pains.?Chills?denies.?Fatigue?admits.?Fever?denies.?ENT:?Decreased hearing?denies.?Respiratory:?Cough?denies.?Cardiovascular:?Chest pain with exertion?denies.?Dyspnea on exertion?denies.?Shortness of breath?denies.?Gastrointestinal:?Constipation?denies.?Decreased appetite?denies.?Diarrhea?denies.?Heartburn?denies.?Nausea?denies.?Rectal bleeding?denies.?Vomiting?denies.?Hematology:?bruising?denies.?petechiae?denies.?Swollen glands?none have been noted.?Genitourinary:?Frequent urination?at night.?Musculoskeletal:?Muscle aches?denies.?Painful joints?denies.?Sciatica?denies.?Weakness?denies.?Skin:?Itching?denies.?Rash?denies.?Skin lesion(s)?denies.?Neurologic:?Difficulty speaking?denies.?Dizziness?denies.?Headache?denies.?Low back pain?denies.?Psychiatric:?Depressed mood?denies.? * Medical History:? * Surgical History:?lymph node biopsy 2011kidney biopsy 2006cholecystectomy 2006mass removal from left breast 08/2018 * Hospitalization/Major Diagno stic Procedure:?HTN and lung infection 06/2018 * Family History:?Father: alisantosh e 82 yrs, adult onset diabetes mellitus, colon [...] Findings: Tobacco Non-User?Aggressive non-smoker ???She was in [place]. Her daughter is [facility] [phone]. She lives with her daughter but has a significant other. 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 * Medications:?TakingLisinopri l 10 MG Tablet 1 tablet Orally Once [...] patient * Allergies:?Aspirin: Stomach Pain, Itchi - AllergyPercocetno[Allergies Verified] Objective: * Vitals:?Ht: 62, Wt: 186, BMI :34.02, BP: 155/101, HR: 68, Temp: 97.3, Wt-k.37. * Examination: ???General Examination: ?GENERAL APPEARANCE:?pleasant, well nourished, well developed, in no acute distress, calm and relaxed , obese , woman.?HEAD:?atraumatic, normocephalic.?EYES:?eomi, perrla, anicteric, conjugate.?EARS:?normal.?NOSE:?septum intact.?ORAL CAVITY:?normal, unremarkable.?NECK/THYROID:?no jugular venous distention, no carotid bruit, thyroid normal.?LYMPH NODES:?no enlarged lymph nodes,spleen normal.?SKIN:?no suspicious lesions, anicteric.?HEART:?no clicks, gallops, murmurs, or rubs, regular rhythm, S1, S2 normal, no s3, or vascular bruits.?LUNGS:?clear to auscultation .?BREASTS:?not examined.?ABDOMEN:?bowel sounds normal, no ascites, no organomegaly, no mass , centripital obesity.?RECTAL EXAM:?not examined.?MUSCULOSKELETAL:?extremities unremarkable, no clubbing, cyanosis or edema.?PERIPHERAL PULSES:?normal.?NEUROLOGIC:?alert and oriented, cranial nerves 2-12 grossly intact, deep tendon reflexes 2+ symmetrical, motor strength normal upper and lower extremities, sensory exam intact.?PSYCH:?alert, oriented.? Assessment: * Assessment: 1.?Lymphadenopathy - R59.1 ( Primary), No adenopathy was encountered today.?2.?Systemic lupus erythematosus - M32.9, She is not currently receiving steroids at her lupus has been quiet. 3.?Hyperlipidemia - E78.5?4.?Obesity - E66.9, She has lost 14 pounds since her last visit. She will be observed carefully.?5.?Essential hypertension - I10, Her blood pressure today is 132/90 I made no change in her regimen. I recommended weight loss in sodium restriction.? Plan: * Treatment: * Procedure Codes:? * Preventive Medicine:? ??Counseling:?Care goal follow-up plan:?Counseling for abnormal BMI given?Yes ?Above Normal BMI Follow-up?Dietary management education, guidance, and counseling, Dietary needs education, Exercise promotion: strength training, Exercise promotion: stretching, Feeding regime, Giving encouragement to exercise, Lifestyle education regarding diet, Nutrition / feeding management, Nutrition therapy, Prescribed activity/exercise education, Prescribed diet education, Prescribed dietary intake, Special diet education, Weight monitoring , Intervention, Order not done: Medical or Other reason not done * Follow Up:?6 Months (Reason: OV) * Images: * Sign off status: Completed true * Provider:?Elvis Dash MD Date:?11/2023 Generated for Nayana vora/Amrit/Nicitting on:?08/07/2024 12:24 PM EST History and Physical Notes * HPI (History of Present Illness) Category Sub-Category Detail Notes COVID-19 Screening Questions Have you had any new onset fever, chills, cough, congestion, sore throat, shortness of breath, muscle aches?: No Have you been exposed to the virus with n the last 10 days?: No Have you travelled internationally in [facility] last 10 days?: No Have you been [...]
== END 2024-08-07 11:48 | disposition home or self-care (01) ==
LOC: HO.LAB 11:47
PROVIDERS: PCP Internal Medicine; Visit Provider Internal Medicine
DX: Z13.89 Encounter for screening for other disorder (principal)

== ENCOUNTER 2024-08-09 08:20 | Outpatient (REF) | payer MEDICARE, MEDICAID, SELFPAY ==
[2024-08-09 08:33] LABS: MANUAL DIFF FLAG NO
--- OUTSIDE RECORDS SUMMARY | 2024-08-09 08:35 | XMS_ITS ---
Author Organization Elvis Dash III, MD Address [address] [place] [address] [address] [place] [address] Care Team Providers Care School Child Care Attendant Name Role Phone Alberta Toney MD Primary Care Provider Elvis Cortes [phone] Allergies Allergen (clinical drug ingredient) Drug/Non Drug [...] Date Provider Diagnosis Elvis Dash III, MD [address] [place] [address] [place] [address] 01/23/2024 Elvis Dash Lymphadenopathy R59. 1 ; [...] Notes * CHERISE YelenaDOB:1965 (58 yo F)Acc No.[id number]:01/23/2024 Progress Notes Patient:?Yelena Mckinney Provider:?Elvis Dash MD :1965???Age:58 Y???Sex:Female D ate:01/23/2024 Address:[address] [place], [id number] Pcp:Alberta Toney MD Subjective: * Chief Complaints: [...] Findings: Tobacco Non-User?Aggressive non-smoker ???She was in [place]. Her [facility] is [facility] [phone]. She lives with her daughter but has a significant other. 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 * Medications:?TakingLisinopri l 10 MG Tablet 1 [...] Dash MD Date:?11/2023 Generated for Nayana vora/Amrit/Nicitting on:?08/09/2024 08:35 AM EST History and Physical Notes * HPI (History of Present Illness) Category Sub-Category Detail Notes COVID-19 Screening Questions Have you had any new onset fever, chills, cough, congestion, sore throat, shortness of breath, muscle aches?: No Have you been exposed to the virus with n the last 10 days?: No Have you travelled internationally in [facility] last 10 days?: No Have you [...]
--- OUTSIDE RECORDS SUMMARY | 2024-08-09 08:35 | XMS_ITS ---
Author Organization Elvis Dash III, MD Address [address] [place] [address] Care Team Providers Care Psychiatrist Name Role Phone Alberta Toney MD Primary Care Provider Elvis Cortes [facility] [phone] Allergies Allergen (clinical drug ingredient) Drug/Non Drug [...] Date Provider Diagnosis Elvis Dash III, MD [address] [place] [address] [place] [address] 07/25/2024 Elvis Dash Lymphadenopathy R59. 1 Assessments [...] Notes * Yelena LUONGDOB:1965 (59 yo F)Acc No.[id number]:07/25/2024 Progress Notes Patient:?Yelena LUONG Provider:?Elvis Dash MD :1965???Age:59 Y???Sex:Female D ate:07/25/2024 Address:[address] [place], [place] [address] Pcp:Alberta Toney MD Subjective: * Chief Complaints: [...] Findings: Tobacco Non-User?Aggressive non-smoker ???She was in [place]. Her daughter is [facility] [phone]. She lives with her daughter but has a significant other. 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 * Medications:?Taking Lisinopr il 10 MG Tablet [...] Dash MD Date:?11/2024 Generated for Nayana vora/Amrit/Ivettsmitting on:?08/09/2024 08:35 AM EST History and Physical [...]
--- OUTSIDE RECORDS SUMMARY | 2024-08-09 08:35 | XMS_ITS ---
Author Organization Elvis Dash III, MD Address [address] [place] [address] [address] [place] [address] Care Team Providers Care Dry Mill Worker Name Role Phone Alberta Toney MD Primary Care Provider Elvis Cortes [facility] [phone] REASON FOR VISIT Follow up Medications Medication [...] Date Provider Diagnosis Elvis Dash III, MD [address] [place] [address] [place] [address] 01/10/2024 Elvis Dash Plan Of Treatment No Information Progress Notes * Yelena LUONGDOB:1965 (59 yo F)Acc No.[id number]:01/10/2024 Progress Notes Patient:?Yelena LUONG Provider:?Elvis Dash MD :1965???Age:58 Y???Sex:Female D ate:01/10/2024 Address:[address] [place], [place] [address], [id number] Pcp:Alberta Toney MD Subjective: * Chief Complaints: [...] Dash MD Date:?12/18 Generated for Nayana vora/Amrit/Nicitting on:?08/09/2024 08:34 AM EST History and Physical Notes * [...]
--- OUTSIDE RECORDS SUMMARY | 2024-08-09 08:35 | XMS_ITS | Clinical Summary ---
Author Organization [facility] Address [address] [place] [address] Phone Care Team Providers Care Melt Helper Name Role Phone Unavailable Primary Care Provider [...]
--- OUTSIDE RECORDS SUMMARY | 2024-08-09 08:35 | XMS_ITS | Patient Health Record ---
Author Organization Elvis Dash III, MD Address [address] [place] [address] [place] [address] Care Team Providers Care Construction Technician Name Role Phone Alberta Toney MD Primary Care Provider Elvis Cortes [facility] [phone] Allergies Allergen (clinical drug ingredient) Drug/Non Drug [...] Status W/U Status Risk Notes Problem Hyperlipidemia (06338387) Hyperlipidemia (272.4) Active confirmed No recent lipid profile is available at this time. Problem Hyperlipidemia (46530148) Hyperlipidemia (E78.5) Active confirmed Problem 436966642 Obesity (E66.9) Active confirmed She has lost 14 pounds since her last visit. She will be observed carefully. Problem 775250558 Unspecified asthma, uncomplicated (J45.909) Active confirmed She was breathing comfortably today. No wheezing was detected. She has been compliant with her treatments. Problem 162440404 Gastro-esophagea l reflux disease without esophagitis (K21.9) Active confirmed Her reflux is well-control led at the current time with cugm-doy-fdi nter medications. 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 The BUN was 12 on the last visit. She is asymptomatic . Problem 39086785 Essential hypertension (I10) Active confirmed Her blood pressure today is 132/90 I made no change in her regimen. I recommended weight loss in sodium restriction. Problem 14621759 Other and unspecified hyperlipidemia (E78.5) Active confirmed I have recommended weight loss in a diet restricted in fat calories in sodium. Problem 91717461 Depressive disorder, not elsewhere classified (F32.9) Active confirmed Her depression was present today but was mild. She is conducting all of the activities of daily life without impairment and has no intention of harming herself. Problem 840939123 Anxiety state (F41.1) Active confirmed There his been no change in this problem. She remains under care. Problem 80617913 Lymphadenopathy (R59.1) Active confirmed No adenopathy was encountered today. Problem 25674144 Systemic lupus erythematosus (M32.9) Active confirmed She is not currently receiving steroids at her lupus has been quiet. Problem 8299645 Helicobacter pylori infection (A04.8) Active confirmed Problem 972713794 Chronic migraine without aura with status migrainosus, not intractable (G43.701) Active confirmed She has occasional migraines but they have become less frequent. Problem 32278696 Amyloidosis, unspecified type (E85.9) Active confirmed She [...] Date Provider Diagnosis Elvis Dash III, MD [address] [place] [address] [place] [address] 01/23/2024 Elvis Dash Lymphadenopathy R59. 1 ; [...] Date [employer] Medicare Advantage [address] [address] [place] [address] [id number] Yelena Mckinney Self - patient is the insured MEDICAID [address] [place] [id number] [phone] [id number] Yelena Mckinney Self - patient is the insured MEDICARE NGS [address] [place] [address] [phone] [id number] Yelena Mckinney Self - patient is the [...]
[2024-08-09 09:22] LABS: Basophils Percent Auto 0.4 % (0-2); Eosinophils Absolute Auto 0.1 X10*3/uL (0.0-0.4); Eosinophils Percent Auto 1.9 % (0-4); Hematocrit 37.9 % (37.0-47.0); Hemoglobin 13.7 g/dl (12.0-16.0); Imm Gran Abs Auto 0.02 X10*3/uL (0.00-0.03); Imm Gran Pct Auto 0.3 % (0.0-0.4); Lymphocytes Absolute Auto 1.9 X10*3/uL (1.2-4.9); Lymphocytes Percent Auto 26.8 % (20-40); Mean Corpuscular HGB Conc 36.1 g/dl (31.0-35.0); Mean Corpuscular Hemoglobin 30.4 pg (27.0-33.0); Mean Corpuscular Volume 84.2 fL (80.0-98.0); Mean Platelet Volume 11.4 fL (9.4-12.3); Monocytes Absolute Auto 0.7 X10*3/uL (0.1-1.2); Monocytes Percent Auto 10.5 % (2-11); Neutrophils Absolute Auto 4.2 x10*3/uL (2.0-8.3); Neutrophils Percent Auto 60.1 % (45-73); Platelet Count 248 X10*3/uL (160-400); Red Cell Distribution Width 14.4 % (11.0-16.0); White Blood Count 6.9 X10*3/uL (4.8-10.8)
[2024-08-09 09:53] LABS: Alanine Aminotransferase 15 U/L (0-31); Albumin Level 3.4 g/dL (3.5-5.0); Alkaline Phosphatase 58 U/L (39-117); Anion Gap 11 (12-20); Aspartate Amino Transferase 20 U/L (5-31); Bilirubin Total 0.5 mg/dL (0.0-1.0); Blood Urea Nitrogen 22 mg/dL (9-16); Calcium 9.5 mg/dL (8.4-10.2); Carbon Dioxide 23 mmol/L (22-29); Chloride 110 mmol/L (96-108); Cholesterol 252 mg/dL (<200); Estimated Glomerular Filt Rate 49; Glucose Random 101 mg/dL (60-115); HDL Cholesterol 38 mg/dL (>40); LDL Cholesterol Calculated 174 mg/dL (<100); Potassium 4.3 mmol/L (3.3-5.1); Sodium 140 mmol/L (135-145); Total Protein 8.6 g/dL (6.5-8.0); Triglycerides 204 mg/dL (<150)
[2024-08-09 10:06] LABS: Creatinine Urine 154.79 mg/dL
[2024-08-09 10:23] LABS: Protein/Creatinine Ratio, Ur 2.99 (<0.2); Total Protein Urine Random 463 mg/dL (<12)
== END 2024-08-09 08:21 | disposition home or self-care (01) ==
LOC: HO.LAB 08:20
PROVIDERS: PCP Internal Medicine; Visit Provider Internal Medicine
DX: E78.2 Mixed hyperlipidemia (principal); L24.9 Irritant contact dermatitis, unspecified cause; D63.1 Anemia in chronic kidney disease; M16.11 Unilateral primary osteoarthritis, right hip; N04.9 Nephrotic syndrome with unspecified morphologic changes
CPT/HCPCS: 36415; 80053; 80061; 82570; 84156; 85025

== ENCOUNTER 2024-09-30 14:19 | Outpatient (REF) | payer MEDICARE, SELFPAY ==
--- OUTSIDE RECORDS SUMMARY | 2024-09-30 16:42 | XMS_ITS ---
Author Organization Elvis Dash III, MD Address [address] [place] [address] [address] [place] [address] Care Team Providers Care Operations Tech Name Role Phone Alberta Toney MD Primary Care Provider Elvis Cortes [facility] [phone] REASON FOR VISIT Follow up Medications Medication [...] Provider Diagnosis Elvis Dash III, MD [address] [place] [address] [place] [phone] 01/10/2024 Elvis Dash Plan Of Treatment No Information Progress Notes * Yelena LUONGDOB:1965 (59 yo F)Acc No.[id number]:01/10/2024 Progress Notes Patient:?Yelena LUONG Provider:?Elvis Dash MD :1965???Age:58 Y???Sex:Female D ate:01/10/2024 Address:[address] [place], [place] [address], [id number] Pcp:Alberta Toney MD Subjective: * Chief Complaints: [...] Dash MD Date:?12/18 Generated for Nayana vora/Amrit/Nicitting on:?09/30/2024 04:42 PM EDT History and Physical Notes * [...]
--- OUTSIDE RECORDS SUMMARY | 2024-09-30 16:42 | XMS_ITS ---
Author Organization Elvis Dash III, MD Address [address] [place] [address] [address] [place] [address] Care Team Providers Care Card Seller Name Role Phone Alberta Toney MD Primary Care Provider Elvis Cortes [phone] Allergies Allergen (clinical drug ingredient) Drug/Non Drug [...] Date Provider Diagnosis Elvis Dash III, MD [address] [place] [address] [place] [address] 01/23/2024 Elvis Dash Lymphadenopathy R59. 1 ; [...] Notes * CHERISE YelenaDOB:1965 (58 yo F)Acc No.[id number]:01/23/2024 Progress Notes Patient:?Yelena Mckinney Provider:?Elvis Dash MD :1965???Age:58 Y???Sex:Female D ate:01/23/2024 Address:[address] [place], [id number] Pcp:Alberta Toney MD Subjective: * Chief Complaints: [...] Findings: Tobacco Non-User?Aggressive non-smoker ???She was in [place]. Her [facility] is [facility] [phone]. She lives with her daughter but has a significant other. 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 * Medications:?TakingLisinopri l 10 MG Tablet 1 [...] Dash MD Date:?11/2023 Generated for Nayana vora/Amrit/Nicitting on:?09/30/2024 04:42 PM EDT History and Physical Notes * HPI (History of Present Illness) Category Sub-Category Detail Notes COVID-19 Screening Questions Have you had any new onset fever, chills, cough, congestion, sore throat, shortness of breath, muscle aches?: No Have you been exposed to the virus with n the last 10 days?: No Have you travelled internationally in last 10 days?: No Have you been [...]
--- OUTSIDE RECORDS SUMMARY | 2024-09-30 16:43 | XMS_ITS | Patient Health Record ---
Author Organization Elvis Dash III, MD Address [address] [place] [address] [place] [address] Care Team Providers Care Lumpia Wrapper Maker Name Role Phone Alberta Toney MD Primary Care Provider Elvis [facility] [phone] Allergies Allergen (clinical drug ingredient) Drug/Non Drug [...] Status W/U Status Risk Notes Problem Hyperlipidemia (62159903) Hyperlipidemia (272.4) Active confirmed No recent lipid profile is available at this time. Problem Hyperlipidemia (69747342) Hyperlipidemia (E78.5) Active confirmed Problem 365453617 Obesity (E66.9) Active confirmed She has lost 14 pounds since her last visit. She will be observed carefully. Problem 656509965 Unspecified asthma, uncomplicated (J45.909) Active confirmed She was breathing comfortably today. No wheezing was detected. She has been compliant with her treatments. Problem 601853446 Gastro-esophagea l reflux disease without esophagitis (K21.9) Active confirmed Her reflux is well-control led at the current time with [id number] nter medications. 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 The BUN was 12 on the last visit. She is asymptomatic . Problem 18450750 Essential hypertension (I10) Active confirmed Her blood pressure today is 132/90 I made no change in her regimen. I recommended weight loss in sodium restriction. Problem 30028174 Other and unspecified hyperlipidemia (E78.5) Active confirmed I have recommended weight loss in a diet restricted in fat calories in sodium. Problem 09798857 Depressive disorder, not elsewhere classified (F32.9) Active confirmed Her depression was present today but was mild. She is conducting all of the activities of daily life without impairment and has no intention of harming herself. Problem 607745093 Anxiety state (F41.1) Active confirmed There his been no change in this problem. She remains under care. Problem 24268329 Lymphadenopathy (R59.1) Active confirmed No adenopathy was encountered today. Problem 83461746 Systemic lupus erythematosus (M32.9) Active confirmed She is not currently receiving steroids at her lupus has been quiet. Problem 4930227 Helicobacter pylori infection (A04.8) Active confirmed Problem 213306108 Chronic migraine without aura with status migrainosus, not intractable (G43.701) Active confirmed She has occasional migraines but they have become less frequent. Problem 99416843 Amyloidosis, unspecified type (E85.9) Active confirmed She [...] Date Provider Diagnosis Elvis Dash III, MD [address] [place] [address] [place] [address] 01/23/2024 Elvis Dash Lymphadenopathy R59. 1 ; [...] ) 09/22/2021 PROFILE, RANDOM (COMPREHENSIVE METABOLIC ) 07/25/2018 PROFILE, RANDOM (COMPREHENSIVE METABOLIC ) 01/23/2024 PROFILE, RANDOM (COMPREHENSIVE METABOLIC ) 07/12/2021 PROFILE, RANDOM (COMPREHENSIVE METABOLIC ) 06/21/2023 PROFILE, RANDOM (COMPREHENSIVE METABOLIC ) 10/23/2018 PROFILE, RANDOM (COMPREHENSIVE METABOLIC ) 02/27/2023 PROFILE, RANDOM (COMPREHENSIVE METABOLIC ) 10/13/2022 LDH 01/23/2024 LDH 06/21/2023 LDH 02/27/2023 CBC w DIFF 09/22/2021 CBC w DIFF 07/25/2018 CBC w DIFF 07/12/2021 CBC w DIFF 10/23/2018 CBC w DIFF 10/13/2022 CBC w DIFF 02/27/2023 SED RATE (ESR) 01/23/2024 SED RATE (ESR) 06/21/2023 SED RATE (ESR) 02/27/2023 IMMUNOFIXATION PANEL, SERUM (IEP) 2018 IMMUNOFIXATION PANEL, SERUM (IEP) 2022 PROTEIN ELECTROPHORESIS, SERUM 2 PROTEIN ELECTROPHORESIS, SERUM 9 PROTEIN ELECTROPHORESIS, SERUM 9 PROTEIN ELECTROPHORESIS, SERUM 3 BETA-2 MICROGLOBULIN, SERUM 02/27/2023 FREE KAPPA LAMBDA, SERUM K/L RATIO 10/23 FREE KAPPA LAMBDA, SERUM K/L RATIO 07/25 KAPPA LAMBDA SER 10/23/2018 KAPPA LAMBDA SER 07/25/2018 PROTEIN ELECTROPHORESIS, RANDOM URINE CBC WITH AUTO DIFF 01/23/2024 CBC WITH AUTO DIFF 06/21/2023 Beta-2 Microglobulin, Serum 06/21/2023 CA 27.29 07/12/2021 Insurance Providers Payer Name Payer Address Payer Phone Subscriber Number Group Number Insured Name Patient Relationship to Insured Coverage Start Date Coverage End Date [employer] Medicare Advantage [address] [address] [place] [address] [id number] Yelena Mckinney Self - patient is the insured MEDICAID [facility] [address] [place] [id number] [phone] [id number] Yelena Mckinney Self - patient is the insured MEDICARE NGS [address] [place] [address] [phone] [id number] Yelena Mckinney Self - patient is the insured Medical (General) History Medical History History ICD Code chronic lymphadenopathy systemic lupus erythematosus hypertension migraine headaches hyperlipidemia GERD asthma depression anxiety cholelithiasis 2012 H. 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
--- OUTSIDE RECORDS SUMMARY | 2024-09-30 16:43 | XMS_ITS ---
Author Organization Elvis Dash III, MD Address [address] [place] [address] Care Team Providers Care Representative Name Role Phone Alberta Toney MD Primary Care Provider Elvis Cort[facility] [phone] Allergies Allergen (clinical drug ingredient) Drug/Non Drug [...] Provider Diagnosis Elvis Dash III, MD [address] [place] [address] [place] [address] 07/25/2024 Elvis Dash Lymphadenopathy R59. 1 Assessments [...] Notes * Yelena LUONGDOB:1965 (59 yo F)Acc No.[id number]:07/25/2024 Progress Notes Patient:?Yelena LUONG Provider:?Elvis Dash MD :1965???Age:59 Y???Sex:Female D ate:07/25/2024 Address:[address] [place], [place] [address] Pcp:Alberta Toney MD Subjective: * Chief Complaints: [...] Findings: Tobacco Non-User?Aggressive non-smoker ???She was in [place]. Her [facility] is [facility] [phone]. She lives with her daughter but has a significant other. 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 * Medications:?Taking Lisinopr il 10 MG Tablet [...] Provider:?Elvis Dash MD Date:?11/2024 Generated for Nayana vora/Amrit/eTgadielsmitting on:?09/30/2024 04:42 PM EDT History and Physical [...]
--- OUTSIDE RECORDS SUMMARY | 2024-09-30 16:43 | XMS_ITS | Clinical Summary ---
Author Organization [facility] Address [address] [place] [address] Phone Care Team Providers Care Chips Screen Tender Name Role Phone Unavailable Primary Care Provider [...] Last Done Comments Breast Cancer Screening 1965 Hepatitis B Vaccine (1 of 3 - 19+ 3-dose series) 07/01 Pneumococcal Vaccine: 50+ Years (1 of 2 - PCV) 986 Colorectal Cancer Screening: Annual FOBT 2015 Colorectal Cancer Screening: Colonoscopy 2015 Colorectal Cancer Screening: Sigmoidoscopy 2015 Influenza Vaccine (Season Ended) 2025 [place] U[place]
== END 2024-09-30 14:20 | disposition home or self-care (01) ==
LOC: HO.MAMMO 14:19
PROVIDERS: PCP Internal Medicine; Visit Provider Internal Medicine
DX: Z12.31 Encounter for screening mammogram for malignant neoplasm of breast (principal)
CPT/HCPCS: 77063; 77067

== ENCOUNTER → 2024-09-30 14:45 | Outpatient (BNV) | payer MEDICARE, SELFPAY | PROVIDERS: PCP Internal Medicine; Visit Provider Internal Medicine | DX: Z12.31 Encounter for screening mammogram for malignant neoplasm of breast (principal) | CPT/HCPCS: 77063; 77067 ==

== ENCOUNTER 2025-03-28 12:14 | Outpatient (AMB) | payer MEDICARE, MEDICAID, SELFPAY ==
--- NOTE | 2025-03-28 12:35 | AM.OFFWIN_ITS ---
Intake Vital Signs 03/28/25 12:36 Height 5 ft 2 in Weight 188 lb BMI 34.4 BP 144/100 H Blood Pressure Location Rt brachial Position Sitting Respiration 16 Pulse 86 Pulse Source Pulse Oximeter Temp 98.1 F Temp Source Oral Pulse Oximetry (%) 98 Oxygen Delivery Method Room Air Intake Visit Reasons: EP-rt mid back pain Intake Note: Pt is here today c/o Rt mid back pain x3days Patient Tobacco Use Status: Never used Tobacco Allergies aspirin (ASA) Allergy (Intermediate, Verified 03/28/25 12:37) RASH AND ITCHING ibuprofen Allergy (Intermediate, Verified 03/28/25 12:37) rash itching penicillin V Allergy (Intermediate, Verified 03/28/25 12:37) rash oxycodone Allergy (Unknown, Verified 03/28/25 12:37) Rash HPI HPI Comments History of Present Illness Details This is a 59-year-old female with past medical history significant for lupus, amyloidosis, essential hypertension, hyperlipidemia who presented to the walk-in clinic complaining of right-sided mid/low back pain x3 days. Patient states she has been having right-sided thoracic and lumbar back pain, which has been worsening over the past 3 days. She denies any known trauma or injury to the area. She states the pain does occasionally radiate to her left thoracic region but does not radiate to her abdomen or groin. She denies any associated urinary symptoms such as dysuria, hematuria, urinary frequency, or urinary urgency. She denies any new or worsening cough or sputum production/purulence. She denies any shortness of breath or difficulty breathing but states that the pain is increased with inspiration. She denies any recent travel, recent surgeries, or recent immobilization. She has bilateral lower extremity edema but states that this is not new or unusual for her. Patient states she has a history of nephrolithiasis requiring surgery but her current symptoms do not feel similar. She states she has had these symptoms before and she was seen in the emergency room and diagnosed with a lumbar/thoracic sprain and she was given prednisone and oxycodone, which seemed to alleviate the pain completely. [facility] Medical History (Updated 02/05/24 @ 20:56 by Ulices Huddelston MD) Sjogren's disease Pulmonary nodule Pulmonary nodule 1 cm or greater in diameter Lupus (systemic lupus erythematosus) Other and unspecified hyperlipidemia Essential hypertension IBS (irritable bowel syndrome) residential systemic steroid user Left breast mass Osteoarthritis HTN (hypertension) Surgical History History of breast lump/mass excision Hx of lymph node biopsy Hx of cholecystectomy Family History Mother Diabetes Arthritis Lupus Father Diabetes Sister Rheumatoid arthritis Social History Household Members: None Alcohol intake: never Patient Tobacco Use Status: Never used Tobacco service: No Current occupational status: retired Review of Systems Const All systems reviewed & are unremarkable except as noted in HPI and below Reports no additional complaints Eyes Reports no additional complaints ENT Reports no additional complaints Card Reports no additional complaints Resp Reports no additional complaints GI Reports no additional complaints Reports no additional complaints Musc Reports no additional complaints Skin/Breast Reports system reviewed and no additional complaints, except as documented Neuro Reports no additional complaints Psych Reports no additional complaints Endo Reports no additional complaints Jeremy/Lymph Reports no additional complaints Aller/Immun Reports no additional complaints Physical Exam Exam Exam: Vital signs reviewed. Constitutional: Non-toxic appearing. No acute distress. Well-developed and well-nourished. HEENT: Normocephalic and atraumatic. PERRL/EOMI. Skin: Warm and dry. Neck: Full and painless range of motion. No cervical lymphadenopathy. Cardio: Regular rate and rhythm. No murmurs, gallops, or rubs. 1+ pitting edema bilateral lower extremities, calves are equal in circumference without tenderness to palpation. No JVD. Pulmonary: No respiratory distress. No accessory muscle usage. Clear to auscultation bilaterally without wheezing, crackles, or rhonchi. Gastrointestinal: Soft, nontender, and nondistended in all 4 quadrants. Normoactive bowel sounds in all 4 quadrants. Musculoskeletal: There is tenderness to palpation of the right thoracic and lumbar paraspinal musculature without midline or spinous process tenderness to palpation as well as mild tenderness to palpation of the left-sided thoracic paraspinal musculature. Normal range of motion in joints throughout the body. No deformity or other signs of injury. Neuro: Alert and oriented x4. Cranial nerves 2-12 grossly intact. No focal deficits appreciated. Psych: Normal mood and affect. Vital Signs: Last Vital Signs Temp 98.1 F 03/28/25 12:36 Pulse 86 03/28/25 12:36 Resp 16 03/28/25 12:36 BP 144/100 H 03/28/25 12:36 Pulse Ox 98 03/28/25 12:36 Oxygen Delivery Method Room Air 03/28/25 12:36 BMI result Body Mass Index 34.4 Results AMB Urinalysis, Automated UA Leukoctes 0 Albert/uL Last Edit by Kyra Antunez, MELISSA on 03/28/25 12:50 UA Nitrite Negative Last Edit by Kyra Antunez, EDUCATION FACULTY MEMBER on 03/28/25 12:50 UA Urobilinogen 0.2 mg/dL Last Edit by Kyra Antunez, EDUCATION FACULTY MEMBER on 03/28/25 12:50 UA Protein 300 mg/dL Last Edit by Kyra Antunez, EDUCATION FACULTY MEMBER on 03/28/25 12:50 UA pH 6.0 Last Edit by Kyra Antunez, EDUCATION FACULTY MEMBER on 03/28/25 12:50 UA Blood 80 Francisco/uL Last Edit by Kyra Antunez, [facility] on 03/28/25 12:50 UA Specific [place] 1.030 Last Edit by Kyra Antunez, EDUCATION FACULTY MEMBER on 03/28/25 12:50 UA Ketone Negative Last Edit by Kyra Antunez, EDUCATION FACULTY MEMBER on 03/28/25 12:50 UA Bilirubin 0 mg/dL Last Edit by Kyra Antunez, EDUCATION FACULTY MEMBER on 03/28/25 12:50 UA Glucose 0 mg/dL Last Edit by Kyra Antunez, EDUCATION FACULTY MEMBER on 03/28/25 12:50 Results Reviewed Results Reviewed: Laboratory Last Values Urine pH (Auto) 6.0 03/28/25 12:48 Specific [place] (Auto) 1.030 03/28/25 12:48 Urine Protein (Auto) 300 mg/dL 03/28/25 12:48 Glucose (UA)(Auto) 0 mg/dL 03/28/25 12:48 Urine Ketones (Auto) Negative 03/28/25 12:48 Urine Blood (Auto) 80 Francisco/uL 03/28/25 12:48 Urine Nitrite (Auto) Negative 03/28/25 12:48 Urine Bilirubin (Auto) 0 mg/dL 03/28/25 12:48 Urine Urobilinogen (Auto) 0.2 mg/dL 03/28/25 12:48 Leukocyte Esterase (Auto) 0 Albert/uL 03/28/25 12:48 Assessment & Plan Assessment & Plan (1) Thoracic back sprain: Code(s): S23.9XXA - Sprain of unspecified parts of thorax, initial encounter Qualifiers: Encounter type: initial encounter Qualified Code(s): S23.9XXA - Sprain of unspecified parts of thorax, initial encounter (2) Lumbar back sprain: Code(s): S33.5XXA - Sprain of ligaments of lumbar spine, initial encounter Qualifiers: Encounter type: initial encounter Qualified Code(s): S33.5XXA - Sprain of ligaments of lumbar spine, initial encounter Plan 59-year-old female with past medical history significant for lupus, amyloidosis, essential hypertension, hyperlipidemia who presented to the walk-in clinic complaining of right-sided mid/low back pain x3 days. On physical examination, she has reproducible tenderness to palpation of the right thoracic and lumbar paraspinal musculature as well as mild tenderness to palpation of the left thoracic paraspinal musculature. Differential diagnoses includes thoracic/lumbar sprain/strain versus less likely nephrolithiasis given reproducible muscular tenderness to palpation and absence of CVA tenderness versus less likely pulmonary embolism, which was suspected given pleuritic pain as well as history of lupus, which can increase risk of blood clots but considered less likely given absence of shortness of breath, absence of tachycardia, and absence of unilateral leg edema as well as no other risk factors such as recent trauma, recent surgeries, recent travel, or recent immobilization although patient was made aware that this can not be definitively ruled out. History and physical most consistent with thoracic/lumbar sprain/strain. I recommended supportive management such as rest/activity modification and heat to the area and patient was given a prescription for PO prednisone 40 mg daily x5 days, PO methocarbamol 500 mg 3 times daily as needed for muscle spasms, as well as topical lidocaine patches. Patient was instructed to proceed directly to the emergency room if she were to develop shortness of breath, hemoptysis, unilateral leg swelling, hematuria, abdominal pain, loss of control of bowel/bladder, fever/chills, or numbness/weakness/paresthesias of extremities. Patient verbalized understanding and is agreeable with the plan. Orders: Orders AMB Urinalysis Automated Today Luanne Belle, PA-C Z13.9 - Encounter for screening, unspecified Medications: New methocarbamol 500 mg PO TID PRN 10 tabs 0RF muscle spasm ALYCE Valero prednisone 40 mg (2 x 20 mg) PO DAILY 10 tabs 0RF ALYCE Valero lidocaine 5% leave on most painful area for up to 12 hrs 1 patch topical DAILY 15 ea 0RF ALYCE Valero Coding Level of Care Code Est Pt Level 3 (22810) Diagnoses Thoracic back sprain, initial encounter S23.9XXA Encounter type: initial encounter Lumbar sprain, initial encounter S33.5XXA Encounter type: initial encounter
[2025-03-28 12:36] VITALS: BP 144/100; PULSE 86; RESP 16; TEMP 36.7; O2SAT 98; BMI 34.4
== END 2025-03-28 13:41 | disposition home or self-care (01) ==
PROVIDERS: PCP Internal Medicine; Visit Provider Physician Assistant Medical
DX: S23.9XXA Sprain of unspecified parts of thorax, initial encounter (principal); S33.5XXA Sprain of ligaments of lumbar spine, initial encounter; Z13.9 Encounter for screening, unspecified

== ENCOUNTER → 2025-03-28 12:14 | Outpatient (BNVA) | payer MEDICARE, MEDICAID, SELFPAY | PROVIDERS: PCP Internal Medicine; Visit Provider Physician Assistant Medical | DX: I10 Essential (primary) hypertension (principal); E78.5 Hyperlipidemia, unspecified; S23.9XXA Sprain of unspecified parts of thorax, initial encounter; S33.5XXA Sprain of ligaments of lumbar spine, initial encounter; X58.XXXA Exposure to other specified factors, initial encounter; Y93.9 Activity, unspecified; Y92.9 Unspecified place or not applicable; Y99.9 Unspecified external cause status; Z87.442 Personal history of urinary calculi | CPT/HCPCS: 81003; 99212 ==

== ENCOUNTER 2025-04-17 11:15 | Outpatient (AMB) | payer MEDICARE, MEDICAID, SELFPAY ==
--- OUTSIDE RECORDS SUMMARY | 2023-12-20 13:30 | XMS_ITS ---
Author Organization Elvis Dash III, MD Address [address] [place] [address] [address] [place] [address] Care Team Providers Care Hedge Fund Accountant Name Role Phone Alberta Toney MD Primary Care Provider Dr. Elvis Cortes III Unavailable Allergies Allergen (clinical drug ingredient) Drug/Non Drug Allergy documented on EMR Reaction Allergy Type Onset Date Status acetaminophen / oxycodone Percocet Unknown Drug Allergy Active aspirin Aspirin Stomach Pain, Itchi Drug Allergy Active REASON FOR VISIT Follow up Medications Medication SIG (Take, Route, Frequency, Duration) Notes Start Date End Date Status Loperamide HCl 2 MG TAKE 2 CAPSULES BY MOUTH NOW THEN 1 AFTER EACH LOOSE BOWEL MOVEMENT Oral Active Allopurinol 100 MG TAKE 1 TABLET BY ALLAN TH EVERY DAY Oral Active Minocycline HCl 100 MG TAKE ONE CAPSULE TWICE A DAY Oral Active Prochlorperazine Maleate 10 MG TAKE 1 TABLET BY MOUTH TWICE A DAY FOR VOMITING Oral Active Sertraline HCl 100 MG TAKE 1 TABLET BY M OUTH EVERY DAY Oral Active Citalopram Hydrobromide 40 MG 0.5 tablet Orally Once a day Active Cardizem CD 240 MG 1 capsule Orally Onc e a day Active hydrALAZINE HCl 100 MG 1 tablet Orally T hree times day Active Albuterol Sulfate (2.5 MG/3ML) 0.083% 3 ml Inhalation Twice times a day Active Doxepin HCl 10 MG 1 capsule at bedtime Orally Once a day Active Loratadine 10 MG 1 tablet Orally Once a day Active dilTIAZem HCl ER Coated Bead s 240 MG Oral Active ProAir HFA 108 (90 Base) MCG/ACT 2 puffs as needed Inhalation Once a day Active Omeprazole 20 MG 1 capsule Orally Twi ce a day Active Spiriva HandiHaler 18 MCG 1 capsule Inha lation Once a day Active Lisinopril 10 MG 1 tablet Orally Once a day Active predniSONE 5 MG 1 tablet with food o r milk Orally Twice a day Active Plaquenil 200 MG 1 tablet with food o r milk Orally Twice a day Active Calcium Carbonate-Vitamin D 600-400 MG-UNIT TAKE 1 TABLET BY MOUTH TWICE A DAY WITH FOOD Oral Active Social History Tobacco Use: Social History Observation Description Date Details (start date - stop date) Never Smoker NA - NA Sex Assigned At : Social History Observation Description Sex Assigned At Female Tobacco Use/Smoking Question Answer Notes Patient is a nonsmoker Additional Findings: Tobacco Non-User Aggressive non-smoker Encounters Encounter Location Date Provider Diagnosis Elvis Dash III, MD [address] [place] [address] [place] [address] 12/20/2023 Elvis Dash Lymphadenopathy R59. 1 Assessments Encounter Date Diagnosis (ICD Code) Assessment Notes Treat ment Notes Treatment Clinical Notes 12/20/2023 Lymphadenopathy (ICD-10 - R59.1) There was no adenopathy palpable in the axillaae or neck or groins. The spleen is not enlarged. The submental lymph nodes have essentially resolved. Plan Of Treatment Medication Medication Name Sig Start Date Stop Date Notes Loperamide HCl 2 MG TAKE 2 CAPSULES BY M OUTH NOW THEN 1 AFTER EACH LOOSE BOWEL MOVEMENT Oral Allopurinol 100 MG TAKE 1 TABLET BY ALLAN TH EVERY DAY Oral Minocycline HCl 100 MG TAKE ONE CAPSULE TWICE A DAY Oral Prochlorperazine Maleate 10 MG TAKE 1 TA BLET BY MOUTH TWICE A DAY FOR VOMITING Oral Sertraline HCl 100 MG TAKE 1 TABLET BY M OUTH EVERY DAY Oral Citalopram Hydrobromide 40 MG 0.5 tablet Orally Once a day Cardizem CD 240 MG 1 capsule Orally Onc e a day hydrALAZINE HCl 100 MG 1 tablet Orally T hree times day Albuterol Sulfate (2.5 MG/3M L) 0.083% 3 ml Inhalation Twice times a day Doxepin HCl 10 MG 1 capsule at bedtime Orally Once a day Loratadine 10 MG 1 tablet Orally Once a day dilTIAZem HCl ER Coated Bead s 240 MG Oral ProAir HFA 108 (90 Base) MCG/ACT 2 puffs as needed Inhalation Once a day Omeprazole 20 MG 1 capsule Orally Twi ce a day Spiriva HandiHaler 18 MCG 1 capsule Inha lation Once a day Lisinopril 10 MG 1 tablet Orally Once a day predniSONE 5 MG 1 tablet with food o r milk Orally Twice a day Plaquenil 200 MG 1 tablet with food o r milk Orally Twice a day Calcium Carbonate-Vitamin D 600-400 MG-UNIT TAKE 1 TABLET BY MOUTH TWICE A DAY WITH FOOD Oral Progress Notes * Yelena LUONGDOB:1965 (59 yo F)Acc No.[id number]:12/20/2023 Progress Notes Patient: Yelena JOHN Provider: Sarai Dash MD :1965 A ge:58 Y S ex:Female Date:12/20/2023 Address:[address] [place], [place] [id number] Pcp:Alberta Toney MD Subjective: * Chief Complaints: * 1 . Follow up. * HPI: C OVID-19 Screening: Questions H ave you had any new onset fever, chills, cough, congestion, sore throat, shortness of breath, muscle aches? N o H ave you been exposed to the virus within the last 10 days? N o H ave you travelled internationally in the last 10 days? N o H ave you been exposed to COVID-19 in the past? N o * ROS: G eneral/Constitutional: pain o nly normal aches and pains. C hills d enies.?Fatigue a dmits. F ever d enies. E NT: Decreased hearing d enies. R espiratory: Cough d enies. C ardiovascular: Chest pain with exertion d enies. D yspnea on exertion?denies. S hortness of breath d enies. G astrointestinal: Constipation d enies. D ecreased appetite d enies.?Diarrhea d enies. H eartburn d enies. N ausea d enies. R ectal bleeding?denies. V omiting d enies. H ematology: bruising d enies. p etechiae d enies. S wollen glands n one have been noted. G enitourinary: Frequent urination d enies. M usculoskeletal: Muscle aches d enies. P ainful joints d enies. S ciatica d enies. W eakness d enies. S kin: Itching d enies. R asa d enies. S kin lesion(s)?denies. N eurologic: Difficulty speaking d enies. D izziness d enies.?Headache d enies. L ow back pain d enies. P sychiatric: Depressed mood d enies. * Medical History: C hronic lymphadenopathy, Systemic lupus erythematosus, Hypertension, Migraine headaches, Hyperlipidemia, GERD, Asthma, Depression, Anxiety, Cholelithiasis, 2013 H. pylori infection, Membranous nephropathy, Rapidly progressive glomerulonephritis. * Surgical History: l ymph node biopsy 2010, kidney biopsy 2005, cholecystectomy 2005, mass removal from left breast 08/2018. * Hospitalization/Major Diagno stic Procedure: H [place] and lung infection 06/2018. * Family History: F ather: alive 82 yrs, adult onset diabetes mellitus, colon cancer, hypertension. M other: alive 75 yrs, adult onset diabetes mellitus, Lupus. P aternal Grand Father: cancer. P aternal Grand Mother: cancer. M aternal Grand Father: cancer. M aternal Grand Mother: cancer.?Maternal aunt: breast cancer. 3 brother(s) , 2 sister(s) . 2 daughter(s) - healthy. . One of her sisters has rheumatoid arthritis. * Social History: T obacco Use: T obacco Use/Smoking P atient is a n onsmoker A dditional Findings: Tobacco Non-User A ggressive non-smoker S he was in [place]. Her [phone]. She lives with her daughter but has a significant other. 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 * Medications: T aking Lisinopril 10 MG Tablet 1 tablet Orally Once a day , Taking Plaquenil 200 MG Tablet 1 tablet with food or milk Orally Twice a day , Taking Calcium Carbonate-Vitamin D 600-400 MG-UNIT Tablet TAKE 1 TABLET BY MOUTH TWICE A DAY WITH FOOD Oral , Taking predniSONE 5 MG Tablet 1 tablet with food or milk Orally Twice a day , Taking dilTIAZem HCl ER Coated Beads 240 MG Capsule Extended Release 24 Hour Oral , Taking Spiriva HandiHaler 18 MCG Capsule 1 capsule Inhalation Once a day , Taking ProAir HFA 108 (90 Base) MCG/ACT Aerosol Solution 2 puffs as needed Inhalation Once a day , Taking Omeprazole 20 MG Capsule Delayed Release 1 capsule Orally Twice a day , Taking Loratadine 10 MG Tablet 1 tablet Orally Once a day , Taking hydrALAZINE HCl 100 MG Tablet 1 tablet Orally Three times day , Taking Citalopram Hydrobromide 40 MG Tablet 0.5 tablet Orally Once a day , Taking Cardizem CD 240 MG Capsule Extended Release 24 Hour 1 capsule Orally Once a day , Taking Albuterol Sulfate (2.5 MG/3ML) 0.083% Nebulization Solution 3 ml Inhalation Twice times a day , Taking Doxepin HCl 10 MG Capsule 1 capsule at bedtime Orally Once a day , Taking Loperamide HCl 2 MG Capsule TAKE 2 CAPSULES BY MOUTH NOW THEN 1 AFTER EACH LOOSE BOWEL MOVEMENT Oral , Taking Prochlorperazine Maleate 10 MG Tablet TAKE 1 TABLET BY MOUTH TWICE A DAY FOR VOMITING Oral , Taking Sertraline HCl 100 MG Tablet TAKE 1 TABLET BY MOUTH EVERY DAY Oral , Taking Allopurinol 100 MG Tablet TAKE 1 TABLET BY MOUTH EVERY DAY Oral , Taking Minocycline HCl 100 MG Capsule TAKE ONE CAPSULE TWICE A DAY Oral , Medication List reviewed and reconciled with the patient * Allergies: A spirin: Stomach Pain, Itchi - Allergy, Percocet. Objective: * Vitals: * Examination: G eneral Examination: GENERAL APPEARANCE: p leasant, well nourished, well developed, in no acute distress, calm and relaxed. HEAD: a traumatic, normocephalic. EYES: e bijan, perrla, anicteric, conjugate. EARS: n ormal. NOSE: s eptum intact. ORAL CAVITY: n ormal, unremarkable. NECK/THYROID: n o jugular venous distention, no carotid bruit, thyroid normal. LYMPH NODES: n o enlarged lymph nodes,spleen normal. SKIN: n o suspicious lesions, anicteric. HEART: n o clicks, gallops, murmurs, or rubs, regular rhythm, S1, S2 normal, no s3, or vascular bruits. LUNGS: c lear to auscultation . BREASTS: no masses palpable bilaterally. ABDOMEN: b owel sounds normal, no ascites, no organomegaly, no mass. RECTAL EXAM: n ot examined. MUSCULOSKELETAL: e xtremities unremarkable, no clubbing, cyanosis or edema. PERIPHERAL PULSES: n ormal. NEUROLOGIC: a lert and oriented, cranial nerves 2-12 grossly intact, deep tendon reflexes 2+ symmetrical, motor strength normal upper and lower extremities, sensory exam intact. PSYCH: a lert, oriented. Assessment: * Assessment: 1. L ymphadenopathy - R59.1 N otes :There was no adenopathy palpable in the axillaae or neck or groins. The spleen is not enlarged. The submental lymph nodes have essentially resolved. Plan: * Treatment: * Images: * The named appointment provid er may or may not be the originator of this progress note, and it is not deemed complete until electronically signed by the appointment provider. Sign off status: Pending * Provider: Sarai Dash MD Date: 0 12/20/2023 Generated for Nayana vora/Amrit/eTransmitting on: 02:06 PM EDT History and Physical Notes * HPI (History of Present Illness) Category Sub-Category Detail Notes COVID-19 Screening Questions Have you had any new onset fever, chills, cough, congestion, sore throat, shortness of breath, muscle aches?: No Have you been exposed to the virus withi n the last 10 days?: No Have you travelled internationally in [facility] last 10 days?: No Have you been exposed to COVID-19 in the past?: No Examination Category Sub-Category Detail Notes General Examination GENERAL APPEARANCE: pleasant , well nourished, well developed, in no acute distress, calm and relaxed HEAD: atraumatic, normocep halic EYES: eomi, perrla, anicte enoc, conjugate EARS: normal NOSE: septum intact NECK/THYROID: no jugular venous di stention, no carotid bruit, thyroid normal HEART: no clicks, gallops, murmurs, or rubs, regular rhythm, S1, S2 normal, no s3, or vascular bruits LUNGS: clear to auscultatio n ABDOMEN: bowel sounds normal, no ascites, no organomegaly, no mass NEUROLOGIC: alert and oriented, cranial nerves 2-12 grossly intact, deep tendon reflexes 2+ symmetrical, motor strength normal upper and lower extremities, sensory exam intact SKIN: no suspicious lesion s, anicteric PERIPHERAL PULSES: normal BREASTS: no masses palpable b ilaterally MUSCULOSKELETAL: extremities unremark able, no clubbing, cyanosis or edema LYMPH NODES: no enlarged lymph no nidia,spleen normal RECTAL EXAM: not examined PSYCH: alert, oriented ORAL CAVITY: normal, unremarkable
--- OUTSIDE RECORDS SUMMARY | 2024-01-10 13:15 | XMS_ITS ---
Author Organization Elvis Dash III, MD Address [address] [place] [address] [address] [place] [address] Care Team Providers Care Field Marketer Name Role Phone Alberta Toney MD Primary Care Provider Dr. Elvis Cortes III Unavailable REASON FOR VISIT Follow up Medications Medication SIG (Take, Route, Frequency, Duration) Notes Start Date End Date Status Minocycline HCl 100 MG TAKE ONE CAPSULE TWICE A DAY Oral Active Allopurinol 100 MG TAKE 1 TABLET BY ALLAN TH EVERY DAY Oral Active Prochlorperazine Maleate 10 MG TAKE 1 TABLET BY MOUTH TWICE A DAY FOR VOMITING Oral Active Sertraline HCl 100 MG TAKE 1 TABLET BY M OUTH EVERY DAY Oral Active Loperamide HCl 2 MG TAKE 2 CAPSULES BY MOUTH NOW THEN 1 AFTER EACH LOOSE BOWEL MOVEMENT Oral Active hydrALAZINE HCl 100 MG 1 tablet Orally T hree times day Active Citalopram Hydrobromide 40 MG 0.5 tablet Orally Once a day Active Doxepin HCl 10 MG 1 capsule at bedtime Orally Once a day Active Cardizem CD 240 MG 1 capsule Orally Onc e a day Active Albuterol Sulfate (2.5 MG/3ML) 0.083% 3 ml Inhalation Twice times a day Active Loratadine 10 MG 1 tablet Orally Once a day Active ProAir HFA 108 (90 Base) MCG/ACT 2 puffs as needed Inhalation Once a day Active Omeprazole 20 MG 1 capsule Orally Twi ce a day Active dilTIAZem HCl ER Coated Bead s 240 MG Oral Active Spiriva HandiHaler 18 MCG 1 capsule Inha lation Once a day Active Calcium Carbonate-Vitamin D 600-400 MG-UNIT TAKE 1 TABLET BY MOUTH TWICE A DAY WITH FOOD Oral Active predniSONE 5 MG 1 tablet with food o r milk Orally Twice a day Active Lisinopril 10 MG 1 tablet Orally Once a day Active Plaquenil 200 MG 1 tablet with food o r milk Orally Twice a day Active Social History Sex Assigned At : Social History Observation Description Sex Assigned At Female Encounters Encounter Location Date Provider Diagnosis Elvis Dash III, MD [address] [place] [address] [place] [address] 01/10/2024 Elvis Dash Plan Of Treatment No Information Progress Notes * Yelena LUONGDOB:1965 (59 yo F)Acc No.[id number]:01/10/2024 Progress Notes Patient: Yelena JOHN Provider: Sarai Dash MD :1965 A ge:58 Y S ex:Female Date:01/10/2024 Address:[address] [place], [place] [address], [id number] Pcp:Alberta Toney MD Subjective: * Chief Complaints: [...] Depressed mood d enies. * Medical History: * Medications: T aking Lisinopril 10 MG [...] TAKE ONE CAPSULE TWICE A DAY Oral Objective: * Vitals: * Examination: G eneral [...] exam intact. PSYCH: a lert, oriented. Assessment: Plan: * Treatment: * Images: * The named appointment provid er may or may not be the originator of this progress note, and it is not deemed complete until electronically signed by the appointment provider. Sign off status: Pending * Provider: Sarai Dash MD Date: 0 01/10/2024 Generated for Nayana vora/Amrit/Nicitting on: 02:06 PM EDT History and Physical Notes * HPI (History of Present Illness) Category Sub-Category Detail Notes COVID-19 Screening Questions Have you had any new onset fever, chills, cough, congestion, sore throat, shortness of breath, muscle aches?: No Have you been exposed to the virus withi n the last 10 days?: No Have you travelled internationally in e last 10 days?: No Have you been [...]
--- OUTSIDE RECORDS SUMMARY | 2024-01-23 10:45 | XMS_ITS ---
Author Organization Elvis Dash III, MD Address [address] [place] [address] [address] [place] [address] Care Team Providers Care Income Tax Manager Name Role Phone Alberta Toney MD Primary Care Provider Dr. Elvis Cortes III Unavailable [phone] Allergies Allergen (clinical drug ingredient) Drug/Non Drug Allergy documented on EMR Reaction Allergy Type Onset Date Status acetaminophen / oxycodone Percocet Unknown Drug Allergy Active aspirin Aspirin Stomach Pain, Itchi Drug Allergy Active REASON FOR VISIT Lymphadenopathy, Asthma, Depression, GERD, Hyperlipidemia, Lupus Medications Medication SIG (Take, Route, Frequency, Duration) Notes Start Date End Date Status Loperamide HCl 2 MG TAKE 2 CAPSULES BY MOUTH NOW THEN 1 AFTER EACH LOOSE BOWEL MOVEMENT Oral Active Minocycline HCl 100 MG TAKE ONE CAPSULE TWICE A DAY Oral Active Allopurinol 100 MG TAKE 1 TABLET BY ALLAN TH EVERY DAY Oral Active Sertraline HCl 100 MG TAKE 1 TABLET BY M OUTH EVERY DAY Oral Active Prochlorperazine Maleate 10 MG TAKE 1 TABLET BY MOUTH TWICE A DAY FOR VOMITING Oral Active Doxepin HCl 10 MG 1 capsule at bedtime Orally Once a day Active Albuterol Sulfate (2.5 MG/3ML) 0.083% 3 ml Inhalation Twice times a day Active Cardizem CD 240 MG 1 capsule Orally Onc e a day Active Citalopram Hydrobromide 40 MG 0.5 tablet Orally Once a day Active hydrALAZINE HCl 100 MG 1 tablet Orally T hree times day Active Loratadine 10 MG 1 tablet Orally Once a day Active Omeprazole 20 MG 1 capsule Orally Twi ce a day Active ProAir HFA 108 (90 Base) MCG/ACT 2 puffs as needed Inhalation Once a day Active Spiriva HandiHaler 18 MCG 1 capsule Inha lation Once a day Active dilTIAZem HCl ER Coated Bead s 240 MG Oral Active predniSONE 5 MG 1 tablet with food o r milk Orally Twice a day Active Calcium Carbonate-Vitamin D 600-400 MG-UNIT TAKE 1 TABLET BY MOUTH TWICE A DAY WITH FOOD Oral Active Plaquenil 200 MG 1 tablet with food o r milk Orally Twice a day Active Lisinopril 10 MG 1 tablet Orally Once a day Active Social History Tobacco Use: Social History Observation Description Date Details (start date - stop date) Never Smoker NA - NA Sex Assigned At : Social History Observation Description Sex Assigned At Female Tobacco Use/Smoking Question Answer Notes Patient is a nonsmoker Additional Findings: Tobacco Non-User Aggressive non-smoker Vital Signs Temperature 97.3 degrees Fahrenheit 01/23/20 24 Blood pressure systolic 155 mm Hg 01/23/20 24 Blood pressure diastolic 101 mm Hg 024 Heart Rate 68 /min 01/23/2024 Height 62 in 01/23/2024 Weight 186 lbs 01/23/2024 BMI 34.02 kg/m2 01/23/2024 Encounters Encounter Location Date Provider Diagnosis Elvis Dash III, MD [address] [place] [address] [place] [address] 01/23/2024 Elvis Dash Lymphadenopathy R59. 1 ; Systemic lupus erythematosus M32.9 ; Hyperlipidemia E78.5 ; Obesity E66.9 and Essential hypertension I10 Assessments Encounter Date Diagnosis (ICD Code) Assessment Notes Treat ment Notes Treatment Clinical Notes 01/23/2024 Lymphadenopathy (ICD-10 - R59.1) No adenopathy was encountered today. 01/23/2024 Systemic lupus erythematosus (ICD-10 - M32.9) She is not currently receiving steroids at her lupus has been quiet. 01/23/2024 Hyperlipidemia (ICD- 10 - E78.5) 01/23/2024 Obesity (ICD-10 - E66.9) She has lost 14 pounds since her last visit. She will be observed carefully. 01/23/2024 Essential hypertensi on (ICD-10 - I10) Her blood pressure today is 132/90 I made no change in her regimen. I recommended weight loss in sodium restriction. Plan Of Treatment Medication Medication Name Sig Start Date Stop Date Notes Loperamide HCl 2 MG TAKE 2 CAPSULES BY M OUTH NOW THEN 1 AFTER EACH LOOSE BOWEL MOVEMENT Oral Minocycline HCl 100 MG TAKE ONE CAPSULE TWICE A DAY Oral Allopurinol 100 MG TAKE 1 TABLET BY ALLAN TH EVERY DAY Oral Sertraline HCl 100 MG TAKE 1 TABLET BY M OUTH EVERY DAY Oral Prochlorperazine Maleate 10 MG TAKE 1 TA BLET BY MOUTH TWICE A DAY FOR VOMITING Oral Doxepin HCl 10 MG 1 capsule at bedtime Orally Once a day Albuterol Sulfate (2.5 MG/3M L) 0.083% 3 ml Inhalation Twice times a day Cardizem CD 240 MG 1 capsule Orally Onc e a day Citalopram Hydrobromide 40 MG 0.5 tablet Orally Once a day hydrALAZINE HCl 100 MG 1 tablet Orally T hree times day Loratadine 10 MG 1 tablet Orally Once a day Omeprazole 20 MG 1 capsule Orally Twi ce a day ProAir HFA 108 (90 Base) MCG/ACT 2 puffs as needed Inhalation Once a day Spiriva HandiHaler 18 MCG 1 capsule Inha lation Once a day dilTIAZem HCl ER Coated Bead s 240 MG Oral predniSONE 5 MG 1 tablet with food o r milk Orally Twice a day Calcium Carbonate-Vitamin D 600-400 MG-UNIT TAKE 1 TABLET BY MOUTH TWICE A DAY WITH FOOD Oral Plaquenil 200 MG 1 tablet with food o r milk Orally Twice a day Lisinopril 10 MG 1 tablet Orally Once a day Pending Test Test Name Order Date PROFILE, RANDOM (COMPREHENSIVE METABOLIC ) 01/23/2024 LDH 01/23/2024 SED RATE (ESR) 01/23/2024 CBC WITH AUTO DIFF 01/23/2024 Next Appt Details Follow Up: 6 Months, Reason: OV Progress Notes * LUONG YelenaDOB:1965 (58 yo F)Acc No.[id number]:01/23/2024 Progress Notes Patient: Yelena Davidson Provider: Sarai Dash MD :1965 A ge:58 Y S ex:Female Date:01/23/2024 Address:[address] [id number] Pcp:Alberta Toney MD Subjective: * Chief Complaints: * L ymphadenopathyAsthmaDepressionGERDHyperlipidemiaLupus * HPI: C OVID-19 Screening: She returns to the office after 6 months for follow-up of lymphadenopathy. She has had some enlarged lymph nodes in her neck and submental area. On examination today no enlarged lymph nodes could be found. Her spleen was normal. She has had no fever or pain or sweats. Observation was continued. Questions H ave you experienced fever, chills, cough, sore throat, shortness of breath, difficulty breathing, muscle aches, loss of taste or smell? N o H ave you been exposed [...] have been noted. G enitourinary: Frequent urination a t night. M usculoskeletal: Muscle aches d enies. P ainful joints d enies. S ciatica d enies. W eakness d enies. S kin: Itching d enies. R asa d enies. S kin lesion(s)?denies. N eurologic: Difficulty speaking d enies. D izziness d enies.?Headache d enies. L ow back pain d enies. P sychiatric: Depressed mood d enies. * Medical History: * Surgical History: l ymph node biopsy 2010kidney biopsy 2006cholecystectomy 2006mass removal from left breast 08/2018 * Hospitalization/Major Diagno stic Procedure: H [place] and lung infection 06/2018 * Family History: F ather: alive 82 [...] A ggressive non-smoker S he was in [place]. Her daughter is [facility] cell [phone]. She lives with her daughter but has a significant other. 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 * Medications: T akingLisinopril 10 MG Tablet 1 tablet Orally Once a dayPlaquenil 200 MG Tablet 1 tablet with food or milk Orally Twice a dayCalcium Carbonate-Vitamin D 600-400 MG-UNIT Tablet TAKE 1 TABLET BY MOUTH TWICE A DAY WITH FOOD Oral predniSONE 5 MG Tablet 1 tablet with food or milk Orally Twice a daydilTIAZem HCl ER Coated Beads 240 MG Capsule Extended Release 24 Hour Oral Spiriva HandiHaler 18 MCG Capsule 1 capsule Inhalation Once a dayProAir HFA 108 (90 Base) MCG/ACT Aerosol Solution 2 puffs as needed Inhalation Once a dayOmeprazole 20 MG Capsule Delayed Release 1 capsule Orally Twice a dayLoratadine 10 MG Tablet 1 tablet Orally Once a dayhydrALAZINE HCl 100 MG Tablet 1 tablet Orally Three times dayCitalopram Hydrobromide 40 MG Tablet 0.5 tablet Orally Once a dayCardizem CD 240 MG Capsule Extended Release 24 Hour 1 capsule Orally Once a dayAlbuterol Sulfate (2.5 MG/3ML) 0.083% Nebulization Solution 3 ml Inhalation Twice times a dayDoxepin HCl 10 MG Capsule 1 capsule at bedtime Orally Once a dayLoperamide HCl 2 MG Capsule TAKE 2 CAPSULES BY MOUTH NOW THEN 1 AFTER EACH LOOSE BOWEL MOVEMENT Oral Prochlorperazine Maleate 10 MG Tablet TAKE 1 TABLET BY MOUTH TWICE A DAY FOR VOMITING Oral Sertraline HCl 100 MG Tablet TAKE 1 TABLET BY MOUTH EVERY DAY Oral Allopurinol 100 MG Tablet TAKE 1 TABLET BY MOUTH EVERY DAY Oral Minocycline HCl 100 MG Capsule TAKE ONE CAPSULE TWICE A DAY Oral Medication List reviewed and reconciled with the patientTaking Lisinopril 10 MG Tablet 1 tablet Orally Once a dayTaking Plaquenil 200 MG Tablet 1 tablet with food or milk Orally Twice a dayTaking Calcium Carbonate-Vitamin D 600-400 MG-UNIT Tablet TAKE 1 TABLET BY MOUTH TWICE A DAY WITH FOOD Oral Taking predniSONE 5 MG Tablet 1 tablet with food or milk Orally Twice a dayTaking dilTIAZem HCl ER Coated Beads 240 MG Capsule Extended Release 24 Hour Oral Taking Spiriva HandiHaler 18 MCG Capsule 1 capsule Inhalation Once a dayTaking ProAir HFA 108 (90 Base) MCG/ACT Aerosol Solution 2 puffs as needed Inhalation Once a dayTaking Omeprazole 20 MG Capsule Delayed Release 1 capsule Orally Twice a dayTaking Loratadine 10 MG Tablet 1 tablet Orally Once a dayTaking hydrALAZINE HCl 100 MG Tablet 1 tablet Orally Three times dayTaking Citalopram Hydrobromide 40 MG Tablet 0.5 tablet Orally Once a dayTaking Cardizem CD 240 MG Capsule Extended Release 24 Hour 1 capsule Orally Once a dayTaking Albuterol Sulfate (2.5 MG/3ML) 0.083% Nebulization Solution 3 ml Inhalation Twice times a dayTaking Doxepin HCl 10 MG Capsule 1 capsule at bedtime Orally Once a dayTaking Loperamide HCl 2 MG Capsule TAKE 2 CAPSULES BY MOUTH NOW THEN 1 AFTER EACH LOOSE BOWEL MOVEMENT Oral Taking Prochlorperazine Maleate 10 MG Tablet TAKE 1 TABLET BY MOUTH TWICE A DAY FOR VOMITING Oral Taking Sertraline HCl 100 MG Tablet TAKE 1 TABLET BY MOUTH EVERY DAY Oral Taking Allopurinol 100 MG Tablet TAKE 1 TABLET BY MOUTH EVERY DAY Oral Taking Minocycline HCl 100 MG Capsule TAKE ONE CAPSULE TWICE A DAY Oral Medication List reviewed and reconciled with the patient * Allergies: A spirin: Stomach Pain, Itchi - AllergyPercocetno[Allergies Verified] Objective: * Vitals: H t: 62, Wt: 186, BMI:34.02, BP: 155/101, HR: 68, Temp: 97.3, Wt-k.[id number]. * Examination: G eneral Examination: GENERAL APPEARANCE: p zachery, well nourished, well developed, in no acute distress, calm and relaxed , obese , woman. HEAD: a traumatic, normocephalic. EYES: e bijan, [...] LUNGS: c lear to auscultation . BREASTS: n ot examined. ABDOMEN: b owel sounds normal, no ascites, no organomegaly, no mass , centripital obesity. RECTAL EXAM: n ot examined. MUSCULOSKELETAL: e xtremities unremarkable, no clubbing, cyanosis or edema. PERIPHERAL PULSES: n ormal. NEUROLOGIC: a lert and oriented, cranial nerves 2-12 grossly intact, deep tendon reflexes 2+ symmetrical, motor strength normal upper and lower extremities, sensory exam intact. PSYCH: a lert, oriented. Assessment: * Assessment: 1. L ymphadenopathy - R59.1 (Primary), No adenopathy was encountered today. 2 . S ystemic lupus erythematosus - M32.9, She is not currently receiving steroids at her lupus has been quiet. 3. H yperlipidemia - E78.5 4 . O besity - E66.9, She has lost 14 pounds since her last visit. She will be observed carefully. 5 . E ssential hypertension - I10, Her blood pressure today is 132/90 I made no change in her regimen. I recommended weight loss in sodium restriction. Plan: * Treatment: * Procedure Codes: * Preventive Medicine: Counseling: C are goal follow-up plan: Counseling for abnormal BMI given Y es Above Normal BMI Follow-up D ietary management education, guidance, and counseling, Dietary needs education, Exercise promotion: strength training, Exercise promotion: stretching, Feeding regime, Giving encouragement to exercise, Lifestyle education regarding diet, Nutrition / feeding management, Nutrition therapy, Prescribed activity/exercise education, Prescribed diet education, Prescribed dietary intake, Special diet education, Weight monitoring , Intervention, Order not done: Medical or Other reason not done * Follow Up: 6 Months (Reason: OV) * Images: * Sign off status: Completed true * Provider: Sarai Dash MD Date: 0 01/23/2024 Generated for Printi ng/Faxing/eTransmitting on: 02:06 PM EDT History and Physical Notes * HPI (History of Present Illness) Category Sub-Category Detail Notes COVID-19 Screening Questions Have you had any new onset fever, chills, cough, congestion, sore throat, shortness of breath, muscle aches?: No Have you been exposed to the virus withi n the last 10 days?: No Have you travelled internationally in [facility] hospital last 10 days?: No Have you been exposed to COVID-19 in the past?: No Examination Category Sub-Category Detail Notes General Examination GENERAL APPEARANCE: pleasant , well nourished, well developed, in no acute distress, calm and relaxed , obese , woman HEAD: atraumatic, normocep halic EYES: eomi, perrla, anicte enoc, conjugate EARS: normal NOSE: septum intact NECK/THYROID: no jugular venous di stention, no carotid bruit, thyroid normal HEART: no clicks, gallops, murmurs, or rubs, regular rhythm, S1, S2 normal, no s3, or vascular bruits LUNGS: clear to auscultatio n ABDOMEN: bowel sounds normal, no ascites, no organomegaly, no mass , centripital obesity NEUROLOGIC: alert and oriented, cranial nerves 2-12 grossly intact, deep tendon reflexes 2+ symmetrical, motor strength normal upper and lower extremities, sensory exam intact SKIN: no suspicious lesion s, anicteric PERIPHERAL PULSES: normal BREASTS: not examined MUSCULOSKELETAL: extremities unremark able, no clubbing, cyanosis or edema LYMPH NODES: no enlarged lymph no nidia,spleen normal RECTAL EXAM: not examined PSYCH: alert, oriented ORAL CAVITY: normal, unremarkable
--- OUTSIDE RECORDS SUMMARY | 2024-07-25 06:00 | XMS_ITS ---
Author Organization Elvis Dash III, MD Address [address] [place] [address] [address] [place] [address] Care Team Providers Care General Ophthalmologist Name Role Phone Alberta Toney MD Primary [...] AFTER EACH LOOSE BOWEL MOVEMENT Oral Active Prochlorperazine Maleate 10 MG TAKE 1 TABLET BY MOUTH TWICE A DAY FOR VOMITING Oral Active Sertraline HCl 100 MG TAKE 1 TABLET BY M OUTH EVERY DAY Oral Active Allopurinol 100 MG TAKE 1 TABLET BY ALLAN TH EVERY DAY Oral Active Minocycline HCl 100 MG TAKE ONE CAPSULE TWICE A DAY Oral Active hydrALAZINE HCl 100 MG 1 tablet Orally T hree times day Active Citalopram Hydrobromide 40 MG 0.5 tablet Orally Once a day Active Cardizem CD 240 MG 1 capsule Orally Onc e a day Active Albuterol Sulfate (2.5 MG/3ML) 0.083% 3 ml Inhalation Twice times a day Active Doxepin HCl 10 MG 1 capsule at bedtime Orally Once a day Active dilTIAZem HCl ER Coated Bead s 240 MG Oral Active Spiriva HandiHaler 18 MCG 1 capsule Inha lation Once a day Active ProAir HFA 108 (90 Base) MCG/ACT 2 puffs as needed Inhalation Once a day Active Omeprazole 20 MG 1 capsule Orally Twi ce a day Active Loratadine 10 MG 1 [...] Date Provider Diagnosis Elvis Dash III, MD [address] [place] [address] [place] [address] 07/25/2024 Elvis Dash Lymphadenopathy R59. 1 Assessments Encounter Date Diagnosis (ICD Code) Assessment Notes Treat ment Notes Treatment Clinical Notes 07/25/2024 Lymphadenopathy (ICD-10 - R59.1) No adenopathy was encountered today. Plan Of Treatment Medication Medication Name Sig Start Date Stop Date Notes Loperamide HCl 2 MG TAKE 2 CAPSULES BY M OUTH NOW THEN 1 AFTER EACH LOOSE BOWEL MOVEMENT Oral Prochlorperazine Maleate 10 MG TAKE 1 TA BLET BY MOUTH TWICE A DAY FOR VOMITING Oral Sertraline HCl 100 MG TAKE 1 TABLET BY M OUTH EVERY DAY Oral Allopurinol 100 MG TAKE 1 TABLET BY ALLAN EVERY DAY Oral Minocycline HCl 100 MG TAKE ONE CAPSULE TWICE A DAY Oral hydrALAZINE HCl 100 MG 1 tablet Orally T hree times day Citalopram Hydrobromide 40 MG 0.5 tablet Orally Once a day Cardizem CD 240 MG 1 capsule Orally Onc e a day Albuterol Sulfate (2.5 MG/3M L) 0.083% 3 ml Inhalation Twice times a day Doxepin HCl 10 MG 1 capsule at bedtime Orally Once a day dilTIAZem HCl ER Coated Bead s 240 MG Oral Spiriva HandiHaler 18 MCG 1 capsule Inha lation Once a day ProAir HFA 108 (90 Base) MCG/ACT 2 puffs as needed Inhalation Once a day Omeprazole 20 MG 1 capsule Orally Twi ce a day Loratadine 10 MG 1 tablet Orally Once a day predniSONE 5 MG 1 tablet with food o r milk Orally Twice a day Lisinopril 10 MG 1 tablet Orally Once a day Plaquenil 200 MG 1 tablet with food o r milk Orally Twice a day Calcium Carbonate-Vitamin D 600-400 MG-UNIT TAKE 1 TABLET BY MOUTH TWICE A DAY WITH FOOD Oral Progress Notes * Yelena LUONGDOB:1965 (59 yo F)Acc No.[id number]:07/25/2024 Progress Notes Patient: Yelena JOHN Provider: Sarai Dash MD :1965 A ge:59 Y S ex:Female Date:07/25/2024 Address:[address] [place] [address] [place], [id number] Pcp:Alberta Toney MD Subjective: * Chief Complaints: * 1 . Follow up. * HPI: C OVID-19 Screening: Questions H ave you had any new onset fever, chills, cough, congestion, sore throat, shortness of breath, muscle aches? N o * ROS: G eneral/Constitutional: pain [...] A ggressive non-smoker S he was in [place]. [phone]. She lives with her daughter but has a significant other. 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 * Medications: T aking Lisinopril 10 MG [...] 1. L ymphadenopathy - R59.1 N otes :No adenopathy was encountered today. Plan: * Treatment: * Images: * The named appointment provid er may or may not be the originator of this progress note, and it is not deemed complete until electronically signed by the appointment provider. Sign off status: Pending * Provider: Sarai Dash MD Date: 0 07/25/2024 Generated for Nayana vora/Amrit/eTransmitting on: 02:07 PM EDT History and Physical Notes * HPI (History of Present Illness) Category Sub-Category Detail Notes COVID-19 Screening Questions Have you had any new onset fever, chills, cough, congestion, sore throat, shortness of breath, muscle aches?: No Examination Category Sub-Category Detail Notes General [...]
--- OUTSIDE RECORDS SUMMARY | 2025-01-22 06:15 | XMS_ITS ---
Author Organization Elvis Dash III, MD Address [address] [place] [address] [address] [place] [address] Care Team Providers Care Glass Decorator Name Role Phone Alberta Toney MD Primary Care Provider Dr. Elvis Cortes III Unavailable [phone] Allergies Allergen (clinical drug ingredient) Drug/Non Drug Allergy documented on EMR Reaction Allergy Type Onset Date Status acetaminophen / oxycodone Percocet Unknown Drug Allergy Active aspirin Aspirin Stomach Pain, Itchi Drug Allergy Active REASON FOR VISIT Follow up Medications Medication SIG (Take, Route, Frequency, Duration) Notes Start Date End Date Status Prochlorperazine Maleate 10 MG TAKE 1 TABLET BY MOUTH TWICE A DAY FOR VOMITING Oral Active Sertraline HCl 100 MG TAKE 1 TABLET BY M OUTH EVERY DAY Oral Active Allopurinol 100 MG TAKE 1 TABLET BY ALLAN TH EVERY DAY Oral Active Minocycline HCl 100 MG TAKE ONE CAPSULE TWICE A DAY Oral Active Loperamide HCl 2 MG TAKE 2 CAPSULES BY MOUTH NOW THEN 1 AFTER EACH LOOSE BOWEL MOVEMENT Oral Active Cardizem CD 240 MG 1 capsule Orally Onc e a day Active Albuterol Sulfate (2.5 MG/3ML) 0.083% 3 ml Inhalation Twice times a day Active Doxepin HCl 10 MG 1 capsule at bedtime Orally Once a day Active hydrALAZINE HCl 100 MG 1 tablet Orally T hree times day Active Citalopram Hydrobromide 40 MG 0.5 tablet Orally Once a day Active dilTIAZem [...] 1 tablet Orally Once a day Active Lisinopril [...] Orally Twice a day Active Social History Tobacco Use: Social History Observation Description Date Details (start date - stop date) Never Smoker NA - NA Sex Assigned At : Social History Observation Description Sex Assigned At Female Tobacco Use/Smoking Question Answer Notes Patient is a nonsmoker Additional Findings: Tobacco Non-User Aggressive non-smoker Encounters Encounter Location Date Provider Diagnosis Elvis Dash III, MD [address] [place] [address] [place] [address] 01/22/2025 Elvis Dash Lymphadenopathy R59. 1 Assessments Encounter Date Diagnosis (ICD Code) Assessment Notes Treat ment Notes Treatment Clinical Notes 01/22/2025 Lymphadenopathy (ICD-10 - R59.1) No adenopathy was encountered today. Plan Of Treatment Medication Medication Name Sig Start Date Stop Date Notes Prochlorperazine Maleate 10 MG TAKE 1 TA BLET BY MOUTH TWICE A DAY FOR VOMITING Oral Sertraline HCl 100 MG TAKE 1 TABLET BY M OUTH EVERY DAY Oral Allopurinol 100 MG TAKE 1 TABLET BY ALLAN TH EVERY DAY Oral Minocycline HCl 100 MG TAKE ONE CAPSULE TWICE A DAY Oral Loperamide HCl 2 MG TAKE 2 CAPSULES BY M OUTH NOW THEN 1 AFTER EACH LOOSE BOWEL MOVEMENT Oral Cardizem CD 240 MG 1 capsule Orally Onc e a day Albuterol Sulfate (2.5 MG/3M L) 0.083% 3 ml Inhalation Twice times a day Doxepin HCl 10 MG 1 capsule at bedtime Orally Once a day hydrALAZINE HCl 100 MG 1 tablet Orally T hree times day Citalopram Hydrobromide 40 MG 0.5 tablet Orally Once a day dilTIAZem HCl ER Coated Bead s 240 MG Oral Spiriva HandiHaler 18 MCG 1 capsule Inha lation Once a day ProAir HFA 108 (90 Base) MCG/ACT 2 puffs as needed Inhalation Once a day Omeprazole 20 MG 1 capsule Orally Twi ce a day Loratadine 10 MG 1 tablet Orally Once a day Lisinopril 10 MG 1 tablet Orally Once a day Plaquenil 200 MG 1 tablet with food o r milk Orally Twice a day Calcium Carbonate-Vitamin D 600-400 MG-UNIT TAKE 1 TABLET BY MOUTH TWICE A DAY WITH FOOD Oral predniSONE 5 MG 1 tablet with food o r milk Orally Twice a day Progress Notes * Yelena LUONGDOB:1965 (59 yo F)Acc No.[id number]:01/22/2025 Progress Notes Patient: Yelena JOHN Provider: Sarai Dash MD :1965 A ge:59 Y S ex:Female Date:01/22/2025 Address:[address] [place] [address] [id number] Pcp:Alberta Toney MD Subjective: * Chief Complaints: [...] A ggressive non-smoker S he was in [place]. Her daughter is [facility] [phone]. She lives with her daughter but has a significant other. 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 * Medications: T aking Lisinopril 10 MG [...] * Provider: Sarai Dash MD Date: 0 01/22/2025 Generated for Nayana vora/Amrit/eTransmitting on: 02:07 PM [...]
[2025-04-17 11:08] VITALS: BP 148/100; PULSE 100; O2SAT 96; BMI 35.1
--- NOTE | 2025-04-17 11:08 | HO.NEPHOV_ITS ---
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: No Accompanied by: Self / Same As Patient Allergies aspirin (ASA) Allergy (Intermediate, Verified 04/17/25 11:16) RASH AND ITCHING ibuprofen Allergy (Intermediate, Verified 04/17/25 11:16) rash itching penicillin V Allergy (Intermediate, Verified 04/17/25 11:16) rash oxycodone Allergy (Unknown, Verified 04/17/25 11:16) Rash HPI Comments Details: 58 yr old woman with SLE and Nephrotic range proteinuria with essentially normal renal function She was treated with Cytoxan/Prednisone more than 10 years ago and has been in remission Recent creatinine is 0.84 and urine pro: cr was about 3.2 gm Seen by Rheumatology and started on Plaquenil Not on Prednisone at this time Underwent repeat kidney biopsy in November 2022 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 20% global sclerosis Mild interstitial fibrosis and tubular atrophy. Recently had a fall and twisted her right ankle 11/16/23 Recently had a course of Prednisone c/o left sided chest pain when she coughs. Not related to exertion. 12/11/23 Last week she was in the ER for upper chest pain and back pain. She was diagnosed with arthritis and sent home. She continues to have sharp pains when she coughs. No shortness of breath. No hemoptysis. 01/09/24 Chest pain improved after 5 days of prednisone and has returned after stopping prednisone ;No fever ;No dyspnea ;Did not take her antihypertensives today 04/17/25 The patient is a 59-year-old female presenting with lupus nephropathy. She was previously seen more than a year ago and has been non-compliant with her treatment regimen. The patient reports being on prednisone, which was prescribed by her doctor during an emergency visit due to pain in her right ear and nose. The patient has hypertension, which was noted to be slightly elevated during the visit. She is currently taking metoprolol for blood pressure management. Proteinuria was identified in previous tests, and the patient was advised to continue medication to manage this condition. The patient was instructed to bring all her medications to the next visit for review. 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 Left breast mass Osteoarthritis HTN (hypertension) Surgical History History of breast lump/mass excision Hx of lymph node biopsy Hx of cholecystectomy Family History Mother Diabetes Arthritis Lupus Father Diabetes Sister Rheumatoid arthritis Social History Household Members: None Alcohol intake: never Patient Tobacco Use Status: Never used Tobacco service: No Current occupational status: retired Review of Systems Const Denies fever(s) and Denies weight loss Card Denies leg edema Resp Denies cough and Denies hemoptysis GI Denies abdominal pain, Denies diarrhea and Denies nausea Musc Denies back pain Neuro Denies focal weakness Physical Exam Vital Signs: Last Vital Signs Pulse 100 04/17/25 11:08 BP 148/100 H 04/17/25 11:08 Pulse Ox 96 04/17/25 11:08 Oxygen Delivery Method Room Air 04/17/25 11:08 BMI result Body Mass Index 35.1 Comfortable Malar rash present Neck supple no JVD. Lungs entry equal no rales. Heart S1-S2 heard no gallop or rub. Abdomen soft nontender. Neuro alert awake oriented. No asterixis. Extremities no edema. Const General: comfortable; No acute distress Orientation/consciousness: patient oriented x3 Eyes General: appearance normal, both eyes and all related structures Visual Foster: normal visual foster by confrontation Neck Neck: Yes supple and Yes no JVD Resp Effort & Inspection: normal respiratory effort and respiratory effort not decreased Cardio Palpation: no palpable S3 and no palpable S4 Heart sounds: no rubs GI Inspection: Yes normal to inspection Palpation (GI): Soft to palpation Percussion: Yes normal to percussion Auscultation: normal bowel sounds General: Yes no CVA tenderness Back/Spine/Pelvis Back: no CVA tenderness Skin General skin exam: no petechiae and no purpura Neuro General: patient oriented x3 and no focal motor deficits Extrem General: No clubbing and No edema Results Reviewed Results Reviewed: October 2022 Kidney Biopsy revealed 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 20% global sclerosis Mild interstitial fibrosis and tubular atrophy. No new labs Nephrology Results: Hgb, (12.0-16.0) 13.7 g/dl 08/09/24 WBC, (4.8-10.8) 6.9 X10*3/uL 08/09/24 Plt Count, (160-400) 248 X10*3/uL 08/09/24 Sodium, (135-145) 140 mmol/L 08/09/24 Potassium, (3.3-5.1) 4.3 mmol/L 08/09/24 Chloride, (96-108) 110 mmol/L H 08/09/24 Carbon Dioxide, (22-29) 23 mmol/L 08/09/24 BUN, (9-16) 22 mg/dL H 08/09/24 Creatinine, (0.5-1.4) 1.14 mg/dL 08/09/24 Calcium, (8.4-10.2) 9.5 mg/dL 08/09/24 Urine Creatinine 154.79 mg/dL 08/09/24 Protein/Creatinin Ratio, (<0.2) 2.99 H 08/09/24 Assessment & Plan Assessment & Plan (1) Lupus (systemic lupus erythematosus): Code(s): M32.9 - Systemic lupus erythematosus, unspecified Category: Medical Qualifiers: Systemic lupus erythematosus organ involvement: glomerular disease Systemic lupus erythematosus type: unspecified Qualified Code(s): M32.14 - Glomerular disease in systemic lupus erythematosus (2) Essential hypertension: Code(s): I10 - Essential (primary) hypertension Category: Medical Plan 1. Lupus Nephropathy - ordered blood and urine tests to monitor kidney function. - Patient advised to bring all medications for review at the next visit. Compliance has been an issue 2. Hypertension - Continue metoprolol for blood pressure management. - Monitor blood pressure regularly. 3, SLE It is unclear if she is following up with her floral specialist. She does not recall the name of her floral specialist 4. Right-sided lower chest pain/back pain. Order chest x-ray Patient Instructions - Bring all medications to the next visit for review. - Complete blood and urine tests as ordered. - Continue taking metoprolol as prescribed. - Monitor blood pressure regularly at home. Orders: Orders Complete Blood Count Auto Diff Today I10 - Essential (primary) hypertension, M32.14 - Glomerular disease in systemic lupus erythematosus Comprehensive Met. Panel Today I10 - Essential (primary) hypertension, M32.14 - Glomerular disease in systemic lupus erythematosus Creatinine Urine Today I10 - Essential (primary) hypertension, M32.14 - Glomerular disease in systemic lupus erythematosus UA and rflx microscopic Today I10 - Essential (primary) hypertension, M32.14 - Glomerular disease in systemic lupus erythematosus Complement C3 Today I10 - Essential (primary) hypertension, M32.14 - Glomerular disease in systemic lupus erythematosus Neutrophil Cytoplasma Ab Today I10 - Essential (primary) hypertension, M32.14 - Glomerular disease in systemic lupus erythematosus XR chest 2V Today M32.14 - Glomerular disease in systemic lupus erythematosus Total Protein Urine Random Today I10 - Essential (primary) hypertension, M32.14 - Glomerular disease in systemic lupus erythematosus BEN Reflex Titer and Pattern Today I10 - Essential (primary) hypertension, M32.14 - Glomerular disease in systemic lupus erythematosus Anti DNA DS Antibody Today I10 - Essential (primary) hypertension, M32.14 - Glomerular disease in systemic lupus erythematosus Complement C4 Today I10 - Essential (primary) hypertension, M32.14 - Glomerular disease in systemic lupus erythematosus Coding Level of Care Code Est Pt Level 4 (90232) Diagnoses Systemic lupus erythematosus with glomerular disease, unspecified SLE type M32.14 Systemic lupus erythematosus organ involvement: glomerular disease Systemic lupus erythematosus type: unspecified Essential hypertension I10
--- OUTSIDE RECORDS SUMMARY | 2025-04-17 14:07 | XMS_ITS | Patient Health Record ---
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 Elvis oCrtes III Unavailable Allergies Allergen (clinical drug ingredient) Drug/Non Drug Allergy documented on EMR Reaction Allergy Type Onset Date Status acetaminophen / oxycodone Percocet Unknown Drug Allergy Active aspirin Aspirin Stomach Pain, Itchi Drug Allergy Active Reason For Referral No Information Medications Medication SIG (Take, Route, Frequency, Duration) Notes Start Date End Date Status dilTIAZem HCl ER Coated Bead s 240 [...] ONE CAPSULE TWICE A DAY Oral Active Lisinopril 10 MG 1 tablet Orally [...] at bedtime Orally Once a day Active predniSONE 5 MG 1 tablet with food o r milk Orally Twice a day Active Loperamide HCl 2 MG TAKE 2 CAPSULES BY MOUTH NOW THEN 1 AFTER EACH LOOSE BOWEL MOVEMENT Oral Active Loratadine 10 MG 1 tablet Orally Once a day Active hydrALAZINE HCl 100 MG 1 tablet Orally T hree times day Active Citalopram Hydrobromide 40 MG 0.5 tablet Orally Once a day Active Social [...] Status W/U Status Risk Notes Problem Hyperlipidemia (12972323) Hyperlipidemia (272.4) Active confirmed No recent lipid profile is available at this time. Problem Hyperlipidemia (13102331) Hyperlipidemia (E78.5) Active confirmed Problem 017410766 Obesity (E66.9) Active confirmed She has lost 14 pounds since her last visit. She will be observed carefully. Problem 969738044 Unspecified asthma, uncomplicated (J45.909) Active confirmed She was breathing comfortably today. No wheezing was detected. She has been compliant with her treatments. Problem 747742105 Gastro-esophagea l reflux disease without esophagitis (K21.9) Active confirmed Her reflux is well-control led at the current time with aumb-hcd-iir nter medications. 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 The BUN was 12 on the last visit. She is asymptomatic . Problem 51141779 Essential hypertension (I10) Active confirmed Her blood pressure today is 132/90 I made no change in her regimen. I recommended weight loss in sodium restriction. Problem 37523424 Other and unspecified hyperlipidemia (E78.5) Active confirmed I have recommended weight loss in a diet restricted in fat calories in sodium. Problem 92978719 Depressive disorder, not elsewhere classified (F32.9) Active confirmed Her depression was present today but was mild. She is conducting all of the activities of daily life without impairment and has no intention of harming herself. Problem 327435222 Anxiety state (F41.1) Active confirmed There his been no change in this problem. She remains under care. Problem 89347777 Lymphadenopathy (R59.1) Active confirmed No adenopathy was encountered today. Problem 91940307 Systemic lupus erythematosus (M32.9) Active confirmed She is not currently receiving steroids at her lupus has been quiet. Problem 4903016 Helicobacter pylori infection (A04.8) Active confirmed Problem 277142213 Chronic migraine without aura with status migrainosus, not intractable (G43.701) Active confirmed She has occasional migraines but they have become less frequent. Problem 37370243 Amyloidosis, unspecified type (E85.9) Active confirmed She was referred back to hematology for evaluation, management and follow-up. Plan Of Treatment Pending Test Test Name Order Date PROFILE, RANDOM (COMPREHENSIVE METABOLIC ) 09/22/2021 PROFILE, RANDOM (COMPREHENSIVE METABOLIC ) 01/23/2024 PROFILE, RANDOM (COMPREHENSIVE METABOLIC ) 07/25/2018 PROFILE, RANDOM (COMPREHENSIVE METABOLIC ) 07/12/2021 PROFILE, [...] PROTEIN ELECTROPHORESIS, SERUM 9 PROTEIN ELECTROPHORESIS, SERUM 04/27/202 3 BETA-2 MICROGLOBULIN, SERUM 02/27/2023 FREE KAPPA [...] Date [employer] Medicare Advantage [address] [address] [place] [address] [id number] Yelena Mckinney Self - patient is the insured MEDICAID [place] [address] [place], [place] [id number] Yelena Mckinney Self - patient is the insured MEDICARE [place] [address] [place] [address] [phone] [id number] Yelena Mckinney Self - patient is the insured Medical (General) History Medical History History ICD Code chronic lymphadenopathy systemic lupus erythematosus hypertension migraine headaches hyperlipidemia GERD asthma depression anxiety cholelithiasis 2013 H. 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
== END 2025-04-17 11:28 | disposition home or self-care (01) ==
LOC: HO.HKA 11:16
PROVIDERS: PCP Internal Medicine; Visit Provider Internal Medicine Hypertension Specialist
DX: M32.14 Glomerular disease in systemic lupus erythematosus (principal); I10 Essential (primary) hypertension
CPT/HCPCS: 99214

== ENCOUNTER 2025-04-17 11:15 | Outpatient (REF) | payer MEDICARE, MEDICAID, SELFPAY ==
[2025-04-17 11:51] LABS: MANUAL DIFF FLAG NO
[2025-04-17 12:07] LABS: Hematocrit 36.2 % (37.0-47.0); Hemoglobin 12.7 g/dl (12.0-16.0); Imm Gran Abs Auto 0.01 X10*3/uL (0.00-0.03); Imm Gran Pct Auto 0.1 % (0.0-0.4); Lymphocytes Absolute Auto 1.6 X10*3/uL (1.2-4.9); Mean Corpuscular HGB Conc 35.1 g/dl (31.0-35.0); Mean Corpuscular Hemoglobin 30.6 pg (27.0-33.0); Mean Corpuscular Volume 87.2 fL (80.0-98.0); NRBC Abs Auto 0.000 X10*3/uL (0.0-0.012); NRBC Pct Auto 0.0 /100WBC (0.0-0.2); Platelet Count 184 X10*3/uL (160-400); Red Blood Count 4.15 X10*6/uL (4.20-5.50); White Blood Count 6.9 X10*3/uL (4.8-10.8)
[2025-04-17 12:29] LABS: Alanine Aminotransferase 20 U/L (0-31); Albumin Level 3.4 g/dL (3.5-5.0); Alkaline Phosphatase 58 U/L (39-117); Anion Gap 10 (12-20); Aspartate Amino Transferase 18 U/L (5-31); Blood Urea Nitrogen 25 mg/dL (9-16); Calcium 9.0 mg/dL (8.4-10.2); Carbon Dioxide 27 mmol/L (22-29); Chloride 110 mmol/L (96-108); Estimated Glomerular Filt Rate 51; Potassium 4.0 mmol/L (3.3-5.1); Sodium 143 mmol/L (135-145); Total Protein 7.6 g/dL (6.5-8.0)
[2025-04-17 12:34] LABS: Appearance Urine Clear; Glucose Urine UA Negative (Negative); PH 5.5 (5.0-9.0); Specific Gravity - Urine 1.020 (1.005-1.025); UMIC TRIGGER UA YES
--- OUTSIDE RECORDS SUMMARY | 2025-04-17 14:36 | XMS_ITS | Clinical Summary ---
Author Organization [facility] Address [address] [place] [address] Phone Care Team Providers Care Clay Structure Builder And Servicer Name Role Phone Unavailable Primary Care Provider [...] Cancer Screening: Sigmoidoscopy 2015 Influenza Vaccine (#1) 2025 [place]
[2025-04-17 15:13] LABS: Total Protein Urine Random 457 mg/dL (<12)
[2025-04-22 12:10] LABS: Neutrophil Cyto Ab Screen NEGATIVE (NEGATIVE)
[2025-04-28 12:43] LABS: Anti Nuclear Antibody Pattern Nuclear, Speckled; Anti Nuclear Antibody Screen POSITIVE (NEGATIVE); Anti Nuclear Antibody Titer 1:80 titer
== END 2025-04-17 11:16 | disposition home or self-care (01) ==
LOC: HO.LAB 11:15
PROVIDERS: PCP Internal Medicine; Visit Provider Internal Medicine Hypertension Specialist
DX: M32.14 Glomerular disease in systemic lupus erythematosus (principal); I10 Essential (primary) hypertension; R07.89 Other chest pain; Z01.84 Encounter for antibody response examination
CPT/HCPCS: 36415; 80053; 81001; 82570; 84156; 85025; 86036; 86038; 86039; 86160; 86225; 99212

== ENCOUNTER 2025-05-02 10:59 | Outpatient (AMB) | payer MEDICARE, MEDICAID, SELFPAY ==
--- NOTE | 2025-05-02 11:00 | HO.NEPHOV_ITS ---
Vital Signs 05/02/25 11:01 Height 5 ft 2 in Weight 192 lb BMI 35.1 BP 168/104 H Blood Pressure Location Lt brachial Position Sitting Pulse 96 Pulse Source Pulse Oximeter Pulse Oximetry (%) 98 Oxygen Delivery Method Room Air Intake Visit Reasons: 2 wks f/u w/ labs-Conf Devil Tender Required: No Accompanied by: Self / Same As Patient Allergies aspirin (ASA) Allergy (Intermediate, Verified 05/02/25 11:01) RASH AND ITCHING ibuprofen Allergy (Intermediate, Verified 05/02/25 11:01) rash itching penicillin V Allergy (Intermediate, Verified 05/02/25 11:01) rash oxycodone Allergy (Unknown, Verified 05/02/25 11:01) Rash Medication List - Last Reconciled 05/02/25 by Alex Calvo MD acetaminophen (Tylenol Extra Strength) 500 mg PO Q6H PRN albuterol sulfate 90 mcg/actuation (ProAir HFA) 2 puffs inhalation Q4-6H PRN budesonide-formoterol 160-4.5 mcg/actuation (Symbicort) 2 puffs inhalation BID diclofenac sodium 75 mg PO BID diltiazem HCl CD 240 mg PO DAILY ezetimibe 10 mg PO DAILY fluticasone propionate 50 mcg/actuation 2 sprays intranasal DAILY 30 days hydroxychloroquine 200 mg PO BID lidocaine 5% 1 patch topical DAILY metoprolol succinate ER 100 mg PO DAILY mirtazapine 15 mg PO BEDTIME ondansetron 4 mg PO Q8H PRN permethrin 5% 1 appl topical ONCE rosuvastatin 40 mg PO DAILY sertraline 100 mg PO DAILY telmisartan-hydrochlorothiazid 80-25 mg 1 tab PO DAILY HPI Comments Details: 58 yr old woman with SLE and Nephrotic range proteinuria with essentially normal renal function She was treated with Cytoxan/Prednisone more than 10 years ago and has been in remission Recent creatinine is 0.84 and urine pro: cr was about 3.2 gm Seen by Rheumatology and started on Plaquenil Not on Prednisone at this time Underwent repeat kidney biopsy in November 2022 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 20% global sclerosis Mild interstitial fibrosis and tubular atrophy. Recently had a fall and twisted her right ankle 11/16/23 Recently had a course of Prednisone c/o left sided chest pain when she coughs. Not related to exertion. 12/11/23 Last week she was in the ER for upper chest pain and back pain. She was diagnosed with arthritis and sent home. She continues to have sharp pains when she coughs. No shortness of breath. No hemoptysis. 01/09/24 Chest pain improved after 5 days of prednisone and has returned after stopping prednisone ;No fever ;No dyspnea ;Did not take her antihypertensives today 04/17/25 The patient is a 59-year-old female presenting with lupus nephropathy. She was previously seen more than a year ago and has been non-compliant with her treatment regimen. The patient reports being on prednisone, which was prescribed by her doctor during an emergency visit due to pain in her right ear and nose. The patient has hypertension, which was noted to be slightly elevated during the visit. She is currently taking metoprolol for blood pressure management. Proteinuria was identified in previous tests, and the patient was advised to continue medication to manage this condition. The patient was instructed to bring all her medications to the next visit for review. 05/02/25 The patient is a 59-year-old female presenting with hypertension and systemic lupus erythematosus. Hypertension has been a persistent issue, with blood pressure readings consistently high despite medication adherence. Current medications include diltiazem and metoprolol, with a recent addition of hydrochlorothiazide to better manage blood pressure. The patient reports regular monitoring of blood pressure at home, with recent readings still elevated. 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 She has been taking hydroxychloroquine, although there was a lapse in medication due to prescription refill issues. The patient has experienced changes in her rheumatology care providers, leading to some confusion regarding her current management plan. 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 Left breast mass Osteoarthritis HTN (hypertension) Surgical History History of breast lump/mass excision Hx of lymph node biopsy Hx of cholecystectomy Family History Mother Diabetes Arthritis Lupus Father Diabetes Sister Rheumatoid arthritis Social History Household Members: None Alcohol intake: never Patient Tobacco Use Status: Never used Tobacco service: No Current occupational status: retired Physical Exam Vital Signs: Last Vital Signs Pulse 96 05/02/25 11: BP 168/104 H 05/02/25 11:01 Pulse Ox 98 05/02/25 11:01 Oxygen Delivery Method Room Air 05/02/25 11:01 BMI result Body Mass Index 35.1 Const General: comfortable; No acute distress Orientation/consciousness: patient oriented x3 Eyes General: appearance normal, both eyes and all related structures Visual Roa: normal visual roa by confrontation Neck Neck: Yes supple and Yes no JVD Resp Effort & Inspection: normal respiratory effort and respiratory effort not decreased Cardio Palpation: no palpable S3 and no palpable S4 Heart sounds: no rubs GI Inspection: Yes normal to inspection Palpation (GI): Soft to palpation Percussion: Yes normal to percussion Auscultation: normal bowel sounds General: Yes no CVA tenderness Back/Spine/Pelvis Back: no CVA tenderness Skin General skin exam: no petechiae and no purpura Neuro General: patient oriented x3 and no focal motor deficits Extrem General: No clubbing and No edema Results Reviewed Nephrology Results: Hgb, (12.0-16.0) 12.7 g/dl 04/17/25 WBC, (4.8-10.8) 6.9 X10*3/uL 04/17/25 Plt Count, (160-400) 184 X10*3/uL Δ 04/17/25 Sodium, (135-145) 143 mmol/L 04/17/25 Potassium, (3.3-5.1) 4.0 mmol/L 04/17/25 Chloride, (96-108) 110 mmol/L H 04/17/25 Carbon Dioxide, (22-29) 27 mmol/L 04/17/25 BUN, (9-16) 25 mg/dL H 04/17/25 Creatinine, (0.5-1.4) 1.10 mg/dL 04/17/25 Calcium, (8.4-10.2) 9.0 mg/dL 04/17/25 Urine Protein, (Neg-Trace) 300 (3+) mg/dL H 04/17/25 Urine Creatinine 129.77 mg/dL 04/17/25 Protein/Creatinin Ratio, (<0.2) 2.99 H 08/09/24 Assessment & Plan Assessment & Plan (1) Lupus (systemic lupus erythematosus): Code(s): M32.9 - Systemic lupus erythematosus, unspecified Category: Medical Qualifiers: Systemic lupus erythematosus type: unspecified Systemic lupus erythematosus organ involvement: glomerular disease Qualified Code(s): M32.14 - Glomerular disease in systemic lupus erythematosus (2) Essential hypertension: Code(s): I10 - Essential (primary) hypertension Category: Medical Plan 1. Lupus Nephropathy - ordered blood and urine tests to monitor kidney function. - Patient advised to bring all medications for review at the next visit. Compliance has been an issue Ran out of Hydroxychlroquin Refill sent Needs Eye exam!! Follow up with Rheum 2. Hypertension - BP suboptimal Increase metoprolol to 200 mg for blood pressure management. HR at 96/mt - Monitor blood pressure regularly. 3, SLE she has a follow up in 4-6 weeks with skidder driver. Medications: New hydroxychloroquine 200 mg PO BID 60 tabs 0RF Changed From metoprolol succinate ER 100 mg PO DAILY To metoprolol succinate ER 200 mg PO DAILY 90 tabs 0RF Coding Level of Care Code Est Pt Level 4 (48075) Diagnoses Systemic lupus erythematosus with glomerular disease, unspecified SLE type M32.14 Systemic lupus erythematosus type: unspecified Systemic lupus erythematosus organ involvement: glomerular disease Essential hypertension I10
[2025-05-02 11:01] VITALS: BP 168/104; PULSE 96; O2SAT 98; BMI 35.1
== END 2025-05-02 11:15 | disposition home or self-care (01) ==
LOC: HO.HKA 10:59
PROVIDERS: PCP Internal Medicine; Visit Provider Internal Medicine Hypertension Specialist
DX: M32.14 Glomerular disease in systemic lupus erythematosus (principal); I10 Essential (primary) hypertension
CPT/HCPCS: 99214

== ENCOUNTER → 2025-05-02 10:59 | Outpatient (BNVA) | payer MEDICARE, MEDICAID, SELFPAY | PROVIDERS: PCP Internal Medicine; Visit Provider Internal Medicine Hypertension Specialist | DX: I10 Essential (primary) hypertension (principal); M32.14 Glomerular disease in systemic lupus erythematosus | CPT/HCPCS: 99212 ==

== ENCOUNTER 2025-05-07 09:09 | Outpatient (RCR) | payer MEDICARE, MEDICAID, SELFPAY ==
--- NOTE | 2025-05-07 12:31 | MHC.PT.EP ---
[facility] [place] Office [place] Office [place] Office [address] Manuel Hall [address] [phone] F: [phone] F: [phone] F: [phone] F: [phone] Physical Therapy Plan of Care Date of Evaluation: 05/07/25 Date of Surgery: NA Diagnosis: LOW BACK PAIN Assessment: Pt IS 59 YO F REFERRED TO PT FROM DR FRAZIER WITH LBP. Pt C/O PAIN MORE R FLANK/RIB AREA. REPORTS HAS HAD THIS PAIN FOR ABOUT 3 MONTHS. UNSURE IF STARTED AFTER LIFTING AIR CONDITIONER OR IF FROM A DISC . Pt PRESENTS WITH LIMITED FLEXIBILITY AND GROSS DECREASE IN STRENGTH. SHOULD BENEFIT FROM PT TO ADDRESS THESE ISSUES Frequency and Duration: The patient will be seen 2X/WK X 6 WKS Short Term Goals: 1. INCREASED AWARENESS BACK CARE AND POSTURE 2. Pt TO PERF 2-3 TASKS WITH PROPER BODY MECHANICS Supervisor Sound Technician Goals: 1. I HEP WITH DC EX PLAN 2. DECREASED PAIN AT LEAST 50% WITH ADLS 3. IMPROVED MOD OSWESTRY Treatment Plan: Modalities to reduce pain, spasms and effusion. Manual therapy to restore motion and function. Therapeutic exercise to improve strength and flexibility. Neuromuscular re-education for posture and balance. Therapeutic activities to return to functional activities of daily living. Electronically signed by: FABIOLA WILLIS PT Please sign and return to therapist. Thank you for your referral.
--- NOTE | 2025-05-09 16:11 | MHC.PT.DC ---
[facility] [place] Office [place] Office [place] Office [address] Manuel Hall [address] [phone] F: [phone] F: [phone] F: [phone] F: [phone] Physical Therapy Discharge Report Diagnosis: LOW BACK PAIN Date of Surgery: NA Date of Evaluation: 05/07/25 Date of Discharge: 05/09/25 Treatments to Date: 1 Cancellations to Date: No Shows to Date: Discharge Status: Patient Elected to Stop Discharge Summary: Pt SEEN FOR INIT EVAL ONLY. PER ASSESSMENT Pt IS 59 YO F REFERRED TO PT FROM DR FRAZIER WITH LBP. Pt C/O PAIN MORE R FLANK/RIB AREA. REPORTS HAS HAD THIS PAIN FOR ABOUT 3 MONTHS. UNSURE IF STARTED AFTER LIFTING AIR CONDITIONER OR IF FROM A DISC . Pt PRESENTS WITH LIMITED FLEXIBILITY AND GROSS DECREASE IN STRENGTH. SHOULD BENEFIT FROM PT TO ADDRESS THESE ISSUES Pt THEN CALLED TO SELF DC DUE TO RECOMMENDATIONS. GOING TO ANOTHER APPOINTMENT Electronically signed by: FABIOLA WILLIS PT Please sign and return to therapist. Thank you for your referral.
== END 2025-05-23 16:16 | disposition home or self-care (01) ==
LOC: HO.PT 09:09
PROVIDERS: PCP Internal Medicine; Visit Provider Internal Medicine
DX: M54.50 Low back pain, unspecified (principal)
CPT/HCPCS: 97110; 97161

== ENCOUNTER 2025-05-12 09:49 | Emergency (ER) | payer MEDICARE, MEDICAID, SELFPAY ==
--- NOTE | ~2025-05-12 | CT_ITS ---
EXAMINATION: CT CHEST ANGIOGRAPHY WITH IV CONTRAST, CT ABDOMEN PELVIS WITH IV CONTRAST HISTORY: chest pain, SOB, right middle back pain, right flank pain COMPARISON: Comparison is made with the prior chest CT dated 02/07/[address] of the abdomen and pelvis dated 07/21/2023. TECHNIQUE: Helical CT scan of the chest was performed following administration of intravenous contrast. The contrast bolus was timed to optimally opacify the pulmonary arteries. Thin sections were obtained through the pulmonary arteries. Subsequently, images were obtained from the lung bases through the proximal thighs. Coronal and sagittal reformatted images were generated. 3D/MIP reconstructed images are also obtained and reviewed. This CT exam was performed with one or more of the following dose reduction techniques: automated exposure control, adjustment of the mA and/or kV according to patient size, use of iterative reconstruction technique. DLP: 911 mGy-cm CHEST: THYROID: The thyroid gland is unremarkable. PULMONARY ARTERIES: No intraluminal filling defects are identified within the pulmonary arteries to suggest pulmonary emboli. LUNGS: There is airspace opacity at the right lung base consistent with atelectasis or pneumonia. There is a 0.8 cm groundglass nodule at the left lung apex (series 12, image 24). This was not present on the prior study. There is scarring at the left lung base. MEDIASTINUM: There is no mediastinal lymphadenopathy. RAFAEL: There is no hilar lymphadenopathy. CARDIOVASCULATURE: The heart is normal in size. There is no pericardial effusion. The thoracic aorta is normal in caliber. DEGREE OF CORONARY CALCIFICATION: mild PLEURA: There is no pleural effusion. No pneumothorax. MAIN AIRWAYS: The mainstem bronchi and proximal branches are patent. AXILLA: There is no axillary lymphadenopathy. ABDOMEN/PELVIS: LIVER: The liver is normal in size and contour. No liver mass is identified. The hepatic and portal veins are patent. GALL BLADDER / BILE DUCTS: The gallbladder is surgically absent. There is no intra or extrahepatic biliary ductal dilatation. SPLEEN: The spleen is normal in size. No focal splenic lesion is identified. PANCREAS: The pancreas is unremarkable in appearance. ADRENAL GLANDS: Within normal limits. KIDNEYS/RETROPERITONEUM: No renal calculi are identified. There is no hydronephrosis. No renal masses are identified. LYMPH NODES: No abdominal or pelvic lymphadenopathy. VASCULATURE: The abdominal aorta is normal in caliber. MESENTERY/PERITONEUM: No free air or free fluid. No masses. STOMACH: There is a small hiatal hernia. The remainder of the stomach is collapsed. There is the suggestion of a rounded 1.5 cm polypoid lesion in the region of the duodenal bulb. SMALL BOWEL: The small bowel is normal in caliber. COLON: There is diverticulosis of the descending and sigmoid colon, without evidence of diverticulitis. APPENDIX: Normal. URINARY BLADDER/PELVIC ORGANS: Bladder is non distended limiting detailed evaluation. The uterus is unremarkable. BONES / SOFT TISSUES: There is degenerative disc disease of the spine. CT/CT abdomen pelvis w IV con IMPRESSION: 1. No evidence of pulmonary emboli. 2. Right lower lobe subsegmental atelectasis versus pneumonia. 3. 8 mm groundglass nodule at the left lung apex. A follow-up chest CT in 6 months is recommended. 4. 1.5 cm polypoid lesion in the region of the duodenal bulb. Upper endoscopy is recommended. Electronically signed by: Elvis Meza MD 05/12/2025 12:40 PM [facility]
[2025-05-12 09:52] VITALS: BP 163/91; PULSE 107; RESP 18; TEMP 36.9; O2SAT 97; BMI 34.9
--- NOTE | 2025-05-12 09:58 | ECG_ITS ---
Test Reason : intermittent cp Blood Pressure : */* mmHG Vent. Rate : 96 BPM Atrial Rate : 96 BPM P-R Int : 150 ms QRS Dur : 78 ms QT Int : 348 ms P-R-T Axes : 58 -54 8 degrees QTcB Int : 439 ms Normal sinus rhythm Pulmonary disease pattern Left anterior fascicular block Inferior infarct , age undetermined Abnormal ECG When compared with ECG of 02-Dec-2023 07:44, No significant change was found Referred By: Generic ED Physician Electronically Signed By: Bruec Griffin
[2025-05-12 10:14] LABS: MANUAL DIFF FLAG NO
[2025-05-12 10:24] LABS: Hematocrit 39.0 % (37.0-47.0); Hemoglobin 13.7 g/dl (12.0-16.0); Imm Gran Abs Auto 0.03 X10*3/uL (0.00-0.03); Imm Gran Pct Auto 0.3 % (0.0-0.4); Lymphocytes Absolute Auto 1.7 X10*3/uL (1.2-4.9); Mean Corpuscular HGB Conc 35.1 g/dl (31.0-35.0); Mean Corpuscular Hemoglobin 30.6 pg (27.0-33.0); Mean Corpuscular Volume 87.1 fL (80.0-98.0); NRBC Abs Auto 0.000 X10*3/uL (0.0-0.012); NRBC Pct Auto 0.0 /100WBC (0.0-0.2); Platelet Count 241 X10*3/uL (160-400); Red Blood Count 4.48 X10*6/uL (4.20-5.50); White Blood Count 10.0 X10*3/uL (4.8-10.8)
[2025-05-12 10:37] LABS: Alanine Aminotransferase 14 U/L (0-31); Albumin Level 3.6 g/dL (3.5-5.0); Alkaline Phosphatase 67 U/L (39-117); Anion Gap 11 (12-20); Aspartate Amino Transferase 18 U/L (5-31); Blood Urea Nitrogen 28 mg/dL (9-16); Calcium 9.5 mg/dL (8.4-10.2); Carbon Dioxide 24 mmol/L (22-29); Chloride 109 mmol/L (96-108); Creatinine Clr Calc Pharmacy 59.1; Estimated Glomerular Filt Rate 53; Potassium 3.9 mmol/L (3.3-5.1); Sodium 140 mmol/L (135-145); Total Protein 8.4 g/dL (6.5-8.0)
[2025-05-12 10:44] LABS: Troponin-I High Sensitivity 3.0 ng/L (<3.5-17.0)
[2025-05-12 11:24] VITALS: BP 168/110; PULSE 94; RESP 18; TEMP 36.4; O2SAT 98
--- NOTE | 2025-05-12 11:27 | ED.GENADULT ---
HPI - General Adult General Chief complaint: General Medical Stated complaint: kidney pain Time Seen by Provider: 05/12/25 11:05 Source: patient Mode of arrival: ambulatory Limitations: no limitations History of Present Illness ED Provider: Audra Keys PA-C HPI narrative: 59-year-old female with a history of Sjogren's disease, JUANITA, history of UTIs, amyloidosis, HTN, irritable bowel syndrome who presents to the ER for evaluation of right sided flank pain for the last 2 weeks. She reports the pain is worse with any movement, deep breaths or coughing. She saw her PCP and was prescribed a muscle relaxer with no relief. She feels like she has pain in the kidney or the lung, and then it is not muscular. She reports dysuria 2 weeks ago but has since resolved. No abdominal pain, nausea, vomiting or diarrhea. She reports central back and chest pains when she takes deep breaths and coughs. No fevers or sick contacts. No leg swelling. MD complaint: right middle back pain Onset (ago): week(s) (2) Location: chest and back Radiation: non-radiation Severity: severe Severity scale (1-10): 8 Quality: stabbing Pain Consistency: intermittent Relieving factors: rest Exacerbating factors: movement and other (coughing) Associated symptoms: chest pain and cough Treatments prior to arrival: none Related Data Home Medications ?Medication ?Instructions ?Recorded ?Confirmed albuterol sulfate 90 mcg/actuation 2 puff inhalation Q4-6H PRN 04/10/20 05/02/25 aerosol inhaler (ProAir HFA) Shortness Of Breath budesonide-formoterol HFA 160 2 puff inhalation BID 04/10/20 05/02/25 mcg-4.5 mcg/actuation aerosol inhaler (Symbicort) diltiazem HCl 240 mg 240 mg PO DAILY 04/10/20 05/02/25 capsule,extended release 24 hr rosuvastatin 40 mg tablet 40 mg PO DAILY 08/20/20 05/02/25 telmisartan 80 1 tab PO DAILY 08/17/23 05/02/25 mg-hydrochlorothiazide 25 mg tablet diclofenac sodium 75 mg 75 mg PO BID 11/16/23 05/02/25 tablet,delayed release ezetimibe 10 mg tablet 10 mg PO DAILY 11/16/23 05/02/25 mirtazapine 15 mg tablet 15 mg PO BEDTIME 11/16/23 05/02/25 permethrin 5 % topical cream 1 appl topical ONCE 11/16/23 05/02/25 sertraline 100 mg tablet 100 mg PO DAILY 11/16/23 05/02/25 acetaminophen 500 mg oral powder 500 mg PO Q6H PRN 12/11/23 05/02/25 packet (Tylenol Extra Strength) Previous Rx's ?Medication ?Instructions ?Recorded ondansetron 4 mg disintegrating 4 mg PO Q8H PRN nausea and 09/15/22 tablet vomiting #7 tabs fluticasone propionate 50 2 spray intranasal DAILY 30 days 02/05/24 mcg/actuation nasal #15.8 mL spray,suspension lidocaine 5 % topical patch 1 patch topical DAILY #15 ea 03/28/25 hydroxychloroquine 200 mg tablet 200 mg PO BID #60 tabs 05/02/25 metoprolol succinate 200 mg 200 mg PO DAILY #90 tabs 05/02/25 tablet,extended release 24 hr azithromycin 250 mg tablet See Rx Instructions PO .COMPLEX #6 05/12/25 (Zithromax Z-Raji) tabs benzonatate 100 mg capsule 100 mg PO TID PRN cough #14 caps 05/12/25 cefuroxime axetil 250 mg tablet 250 mg PO BID 7 days #14 tabs 05/12/25 Allergies Allergy/AdvReac Type Severity Reaction Status Date / Time aspirin (ASA) Allergy Intermediate RASH AND Verified 05/12/25 09:52 ITCHING ibuprofen Allergy Intermediate rash Verified 05/12/25 09:52 itching penicillin V Allergy Intermediate rash Verified 05/12/25 09:52 oxycodone Allergy Unknown Rash Verified 05/12/25 09:52 Review of Systems Review of Systems: Yes all other systems are reviewed and are negative [facility] Past Medical History Medical History (Updated 05/13/25 @ 00:00 by Diya Ivan) Sjogren's disease Pulmonary nodule Pulmonary nodule 1 cm or greater in diameter Lupus (systemic lupus erythematosus) Other and unspecified hyperlipidemia Essential hypertension IBS (irritable bowel syndrome) 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 Oriented X3. No acute distress. Head: normocephalic, atraumatic. Eyes: Pupils equal, round and reactive to light. ENT: Pharynx normal. No tonsillar swelling or exudate. Neck: Normal inspection. Neck supple. CVS: Normal heart rate and rhythm. Pulses normal. Respiratory: No respiratory distress. Breath sounds diminished at right base. Abdomen: Soft and nontender. +BS x4 +CVA tenderness on the right side w/ associated soft tissue tenderness and palpable muscle spasm Skin: Skin warm and dry. Normal skin color. Normal skin turgor. No rashes. Extremities: No lower extremity edema. No joint swelling. No calf tenderness. Neuro/psych: Oriented X 3. No motor deficit. No sensory deficit. CN II-XII intact. Normal speech and cognition. Flat affect. slow to move due to pain Vital Signs: Vital Signs - 24 hr 05/12/25 09:52 05/12/25 11:24 05/12/25 12:39 Temperature 98.4 F 97.6 F Pulse Rate 107 H 94 90 Respiratory Rate 18 18 21 H Blood Pressure 163/91 H 168/110 H 159/97 H Pulse Oximetry 97 98 95 Oxygen Delivery Method Room Air Room Air Room Air 05/12/25 13:56 Temperature 98.7 F Pulse Rate 90 Respiratory Rate 21 H Blood Pressure 159/97 H Pulse Oximetry 95 Oxygen Delivery Method Room Air BMI result Body Mass Index 34.9 Medications Administered Discontinued Medications Generic Name Dose Route Start Last Admin Trade Name Freq PRN Reason Stop Dose Admin Acetaminophen 975 mg 05/12/25 11:36 05/12/25 12:22 Acetaminophen 325 Mg Tablet PO 05/12/25 11:37 Not Given ONCE ONE Iohexol 100 ml 05/12/25 12:05 05/12/25 12:05 Iohexol 350 Mg/Ml 100 Ml Infus..Btl IV 05/12/25 12:06 85 ml ONCE ONE Administration Oxycodone HCl 5 mg 05/12/25 12:33 05/12/25 12:39 Oxycodone Hcl Immed Release 5 Mg Tablet PO 05/12/25 12:34 5 mg ONCE ONE Administration Medical Decision Making Medical Decision Making [facility] Narrative: 59-year-old female presents to the ER for evaluation of 2 weeks of right-sided flank and middle back pain. No improvement with muscle relaxers. pain is worse with movement and coughing. She has tenderness on examination. Tenderness is above the level of the costophrenic angle with concern for pulmonary pathology. CTA was done to rule out PE and assess for other etiologies of pleuritic pain, it showed right lower lobe pneumonia versus atelectasis. Abdominal imaging unremarkable. UA without infection. Results d/w patient - RLL PNA most likely etiology of her right flank pain and cough. will start CAP coverage. she is not septic, not hypoxic. she is stable for discharge home with PO abx and outpatient follow up. patient agrees with plan. Differential Diagnosis Differential Diagnoses: The differential diagnosis associated with the presentation includes renal colic, biliary colic, PE, MSK pain, PNA, pulmonary infarct, costochondritis Admission/Observation Consideration of admission/observation: Escalation of care including admission/observation considered Lab Data [facility] Lab Attestation statement: I reviewed the patient's lab results. no leukocytosis, anemia, stable BUN/Cr from prior 05/12/25 10:11 05/12/25 10:11 Labs: Lab Results 05/12/25 05/12/25 Range/Units 10:11 11:28 WBC 10.0 (4.8-10.8) X10*3/uL RBC 4.48 (4.20-5.50) X10*6/uL Hgb 13.7 (12.0-16.0) g/dl Hct 39.0 (37.0-47.0) % MCV 87.1 (80.0-98.0) fL MCH 30.6 (27.0-33.0) pg MCHC 35.1 H (31.0-35.0) g/dl RDW 13.6 (11.0-16.0) % Plt Count 241 D (160-400) X10*3/uL MPV 11.4 (9.4-12.3) fL Immature Gran % (Auto) 0.3 (0.0-0.4) % Neut % (Auto) 76.5 H (45-73) % Lymph % (Auto) 16.8 L (20-40) % [place] % (Auto) 5.7 (2-11) % Eos % (Auto) 0.5 (0-4) % Baso % (Auto) 0.2 (0-2) % Lymph # (Auto) 1.7 (1.2-4.9) X10*3/uL [place] # (Auto) 0.6 (0.1-1.2) X10*3/uL Eos # (Auto) 0.1 (0.0-0.4) X10*3/uL Baso # (Auto) 0.0 (0.0-0.2) X10*3/uL Abs Immat Gran (auto) 0.03 (0.00-0.03) X10*3/uL Absolute Neuts (auto) 7.7 (2.0-8.3) x10*3/uL Absolute Nucleated RBC 0.000 (0.0-0.012) X10*3/uL Nucleated RBC % (auto) 0.0 (0.0-0.2) /100WBC Sodium 140 (135-145) mmol/L Potassium 3.9 (3.3-5.1) mmol/L Chloride 109 H (96-108) mmol/L Carbon Dioxide 24 (22-29) mmol/L Anion Gap 11 L (12-20) BUN 28 H (9-16) mg/dL Creatinine 1.06 (0.5-1.4) mg/dL Estim Creat Clear Calc 59.1 Estimated GFR 53 Random Glucose 110 (60-115) mg/dL Calcium 9.5 (8.4-10.2) mg/dL Total Bilirubin 0.4 (0.0-1.0) mg/dL AST 18 (5-31) U/L ALT 14 (0-31) U/L Alkaline Phosphatase 67 (39-117) U/L Troponin I High Sens 3.0 (<3.5-17.0) ng/L Total Protein 8.4 H (6.5-8.0) g/dL Albumin 3.6 (3.5-5.0) g/dL Urine Color Yellow Urine Appearance Clear Urine pH 5.5 (5.0-9.0) Ur Specific [place] 1.020 (1.005-1.025) Urine Protein >=1000 (4+) H (Neg-Trace) mg/dL Urine Glucose (UA) Negative (Negative) mg/dL Urine Ketones Negative (Negative) mg/dL Urine Blood Small (1+) H (Negative) Urine Nitrite Negative (Negative) Ur Leukocyte Esterase Trace H (Negative) Urine RBC 0-2 (0-2) /HPF Urine WBC 6-10 (0-5) /HPF Ur Squamous Epith Cells 3-5 (0-2) /HPF Urine Bacteria None Seen (None Seen) Hyaline Casts 0-2 (0-2) /LPF Independent Interpretation I performed an independent interpretation of an: EKG and CT Scan Interpretation: no central PE on CTA, RLL consolidation ekg w/ normal sinus rhythm, HR 96, no change from november 2023, no st segment elevations or depressions Radiology Impression Discussion of test interpretation with radiology: I have reviewed the radiologist's reading. External Record Review External record reviewed: Office record, Outpatient record, Prior outpatient labs and Prior outpatient radiology Prescription Management I considered prescription management with: Pain Medication and Antibiotic Chronic Conditions Patient?s care impacted by: Hypertension and Other (amyloid, SLE) Critical Care Time Critical Care Time Critical Care Time: No Discharge Plan Discharge Clinical Impression: Community acquired pneumonia of right lower lobe of lung, Pulmonary nodule Patient Disposition: Home, Self-Care Instructions: Community Acquired Pneumonia (DC), Pulmonary Nodules (ED) Additional Instructions: Your lab workup today was reassuring Your urine test showed no infection Your CT scan showed evidence of right lower lung pneumonia. This is what is most likely causing your pain. It also showed Take the prescribed antibiotics as directed, complete the entire course and do not miss any doses Rest and drink plenty of fluids Take the prescribed cough medication as needed Take tylenol 976 mg every 6-8 hours around the clock for pain Follow up with your doctor If you develop new or worsening symptoms call 911 or come back to the ER for further evaluation. Prescriptions: New cefuroxime axetil 250 mg tablet 250 mg PO BID 7 Days Qty: 14 0RF azithromycin [Zithromax Z-Raji] 250 mg tablet See Rx Instructions .ROUTE .COMPLEX Qty: 6 0RF Rx Instructions: take 500 mg today (day 1), then 250 mg for 4 days (days 2-5) benzonatate 100 mg capsule 100 mg PO TID PRN (Reason: cough) Qty: 14 0RF No Action diltiazem HCl 240 mg capsule,extended release 24hr 240 mg PO DAILY albuterol sulfate [ProAir HFA] 90 mcg/actuation Hfa Aerosol Inhaler 2 puff INHALATION Q4-6H PRN (Reason: Shortness Of Breath) budesonide-formoterol [Symbicort] 160-4.5 mcg/actuation HFA aerosol inhaler 2 puff INHALATION BID ondansetron 4 mg tablet,disintegrating 4 mg PO Q8H PRN (Reason: nausea and vomiting) Qty: 7 0RF rosuvastatin 40 mg tablet 40 mg PO DAILY mirtazapine 15 mg tablet 15 mg PO BEDTIME telmisartan-hydrochlorothiazid 80-25 mg tablet 1 tab PO DAILY fluticasone propionate 50 mcg/actuation spray,suspension 2 spray intranasal DAILY 30 Days Qty: 15.8 11RF permethrin 5 % cream 1 appl topical ONCE sertraline 100 mg tablet 100 mg PO DAILY ezetimibe 10 mg tablet 10 mg PO DAILY diclofenac sodium 75 mg tablet,delayed release (DR/EC) 75 mg PO BID Tylenol Extra Strength 500 mg powder in packet 500 mg PO Q6H PRN lidocaine 5 % adhesive patch,medicated 1 patch topical DAILY Qty: 15 0RF Rx Instructions: leave on most painful area for up to 12 hrs hydroxychloroquine 200 mg tablet 200 mg PO BID Qty: 60 0RF metoprolol succinate 200 mg tablet extended release 24 hr 200 mg PO DAILY Qty: 90 0RF Referrals: Alberta Toney MD [Primary Care Provider, Internal Medicine] Interventions: ED Discharge Assessment Last Done: 05/12/25 13:56 Discharge Date/Time: 05/12/25 13:57 Print Language: [place]
[2025-05-12 11:37] LABS: Appearance Urine Clear; Glucose Urine UA Negative (Negative); PH 5.5 (5.0-9.0); Specific Gravity - Urine 1.020 (1.005-1.025); UMIC TRIGGER UACC YES
[2025-05-12 12:01] LABS: UACC Culture Trigger YES
[2025-05-12] MEDS: iohexoL 350 MG/ML 100 ML INFUS..BTL IV (12:05)
--- OUTSIDE RECORDS SUMMARY | 2025-05-12 12:25 | XMS_ITS | Clinical Summary ---
Author Organization [facility] Address [address] [place] [address] Phone Care Team Providers Care Director Of Broadcast Name Role Phone Unavailable Primary Care Provider [...]
[2025-05-12 12:39] VITALS: BP 159/97; PULSE 90; RESP 21; O2SAT 95
[2025-05-12] MEDS: oxyCODONE HCl Immed Release 5 MG TABLET PO (12:39)
[2025-05-12 13:56] VITALS: BP 159/97; PULSE 90; RESP 21; TEMP 37.1; O2SAT 95
== END 2025-05-12 13:57 | disposition home or self-care (01) ==
PROVIDERS: Emergency Provider Emergency Medicine; PCP Internal Medicine
DX: J18.9 Pneumonia, unspecified organism (principal); R91.1 Solitary pulmonary nodule; R06.02 Shortness of breath; M54.6 Pain in thoracic spine; R10.A1 Flank pain, right side; R07.9 Chest pain, unspecified; R05.9 Cough, unspecified; R60.0 Localized edema; R82.90 Unspecified abnormal findings in urine; R94.31 Abnormal electrocardiogram [ECG] [EKG]; I10 Essential (primary) hypertension; M35.00 Sjogren syndrome, unspecified; G47.33 Obstructive sleep apnea (adult) (pediatric)
CPT/HCPCS: 36415; 71275; 74177; 80053; 81001; 84484; 85025; 87086; 87147; 93005; 99284; 99285; Q9967

== ENCOUNTER → 2025-05-12 09:58 | Outpatient (BNV) | payer MEDICARE, MEDICAID, SELFPAY | PROVIDERS: Emergency Provider Emergency Medicine; PCP Internal Medicine; Visit Provider Internal Medicine Cardiovascular Disease | DX: I44.4 Left anterior fascicular block (principal) | CPT/HCPCS: 93010 ==

== ENCOUNTER → 2025-05-12 11:34 | Outpatient (BNV) | payer MEDICARE, MEDICAID, SELFPAY | PROVIDERS: Emergency Provider Emergency Medicine; PCP Internal Medicine; Visit Provider Radiology Diagnostic Radiology | DX: R91.1 Solitary pulmonary nodule (principal); K31.7 Polyp of stomach and duodenum | CPT/HCPCS: 71275; 74177 ==